=== PATIENT | female | born 1955 | race Caucasian/White ===

== ENCOUNTER 2016-07-28 09:51 | Inpatient (IN) | payer OTHER ==
[~2016-07-28] VITALS: Ht 167.6 cm; Wt 98.4 kg
[~2016-07-28 09:51] MED LIST: ALBU1AER9 INH; BENZ100C84 PO; CLON0.5T3 PO; ENOX0.8I8 SQ; GLC/500 PO; HYDR-5688 PO; HYDR25TA4 PO; MULT-506 PO; OXYC-57 PO; PRAZ2CAP PO; PRLSR20 PO; TIZA4CAP PO; TRAZ1TAB5 PO; VENL150C56 PO; VITBC PO
[2016-07-28] MEDS ORDERED: SODIUM CHLORIDE 0.9% 1000ML 1,000 ML IV STA (10:06)
[2016-07-28] MEDS ORDERED: ALBUT/IPRATROP 3MG/0.5MG NEB 3 ML VIAL INH STA (10:06)
[2016-07-28] MEDS ORDERED: TYLOTC500 PO (10:16)
[2016-07-28] MEDS ORDERED: TRAZ100T29 PO (10:16)
[2016-07-28] MEDS ORDERED: VENL150C56 PO (10:16)
--- NOTE | 2016-07-28 10:18 | EMERGENCY ROOM VISIT NOTE ---
History Report prepared by [place]: Jesus Grossman Under the Supervision of: Dr. Danny Bermudez D.O. First contact with patient: 09:57 Chief Complaint: SHORTNESS OF BREATH Stated Complaint: SOB History of Present Illness The patient is a 61 year old female who presents to the Emergency Room with complaints of worsening shortness of breath for the past two weeks. The patient states that she has been feeling sick for a while, though the last 24 hours she states that it has gotten increasingly harder to breath. The patient denies any chest pain. She states that her throat hurts, she has the chills, a fever, and a cough that produces white sputum. She states the breathing treatment en route to the ED did not help her. The patient states that she has been around some sick family members recently. She additionally states that she is currently on medication for depression and PTSD. The patient states that she has a history of a left knee replacement, back fusion, hysterectomy, and left thumb surgery. Source of History: patient Onset: two weeks ago Position: other (global) Quality: other (shortness of breath) Timing: worsening Associated Symptoms: + chills, + cough, + fevers, + sorethroat, No chest pain Review of Systems See HPI for pertinent positives & negatives. A total of 10 systems reviewed and were otherwise negative. Past Medical & Surgical Medical Problems: (1) Asthmatic bronchitis Surgical Problems: (1) H/O total knee replacement Family History Diabetes mellitus Social History Smoking Status: Former Smoker Alcohol Use: occasionally Drug Use: none Occupation Status: disabled Current/Historical Medications Scheduled Multivitamin (Multivitamin), 1 TABLET PO DAILY Prazosin Hcl (Minipress), 2 MG PO HS Trazodone Hcl (Trazodone), 200 MG PO HS Venlafaxine Hcl (Effexor Extended Rel), 150 MG PO DAILY Vitamin B Complex (Vitamin B Complex), 1 TABLET PO DAILY [cardio b], 1 TAB PO DAILY [omega brite], 3 CAP PO DAILY Scheduled PRN Acetaminophen (Tylenol), 1,000 MG PO DAILY PRN for Pain Clonazepam (Klonopin), 0.5 MG PO TID PRN for Anxiety Tizanidine (Zanaflex), 4 MG PO TID PRN Allergies Coded Allergies: Sulfa Drugs (Verified Allergy, Unknown, 07/28/16) Physical Exam Vital Signs Date Time Temp Pulse Resp B/P Pulse Ox O2 Delivery O2 Flow Rate FiO2 07/28/16 16:05 92 Nasal Cannula 2.0 07/28/16 15:56 80 16 100/49 92 Nasal Cannula 2.0 07/28/16 14:53 93 07/28/16 14:02 105 22 125/80 94 Nasal Cannula 2.0 07/28/16 13:23 100 24 146/78 93 Nasal Cannula 07/28/16 12:02 105 26 134/82 95 Nasal Cannula 2.0 07/28/16 10:34 103 07/28/16 10:31 93 24 113/83 97 Nasal Cannula 2.0 07/28/16 10:06 93 Nasal Cannula 2.0 07/28/16 09:59 89 Room Air 07/28/16 09:59 89 Room Air 07/28/16 09:59 36.7 100 24 151/81 89 Room Air Physical Exam GENERAL: Patient is awake, alert, somewhat anxious appearing. EYES: Conjunctival injection noted bilaterally. Periorbital edema noted bilaterally. EARS, NOSE, MOUTH AND THROAT: The nose is without any evidence of any deformity. Mucous membranes are moist tongue is midline NECK: The neck is nontender and supple. RESPIRATORY:Lung sounds diminished throughout. Scattered expiratory wheezing in both upper lung peter. CARDIOVASCULAR: Regular rate and rhythm noted there no murmurs rubs or gallops normal S1 normal S2 GASTROINTESTINAL: The abdomen is soft. Bowel sounds are present in all quadrants. Abdomen is nontender MUSCULOSKELETAL/EXTREMITIES: There is no evidence of gross deformity full range of motion is noted in the hips and shoulders SKIN: There is no obvious evidence of any rash. There are no petechiae, pallor or cyanosis noted. NEUROLOGIC: Patient is awake alert and oriented x3 Medical Decision & Procedures ER Provider Diagnostic Interpretation: Radiology results as stated below per my review and radiologist interpretation: CHEST ONE VIEW PORTABLE CLINICAL HISTORY: EVALUATE RESPIRATORY DISTRESS. DYSPNEA dyspnea COMPARISON STUDY: 12/22/2012 FINDINGS: The bones soft tissues and hemidiaphragms are normal. The cardiomediastinal silhouette is normal. The lungs are clear. The pulmonary vasculature is normal. IMPRESSION: Negative chest. Electronically signed by: Brandin Serrano M.D. 07/28/2016 10:43 AM Dictated Date/Time: 07/28/2016 10:43 AM Laboratory Results 07/28/16 10:20 Red Blood Count 4.32, Mean Corpuscular Volume 90.7, Mean Corpuscular Hemoglobin 32.4, Mean Corpuscular Hemoglobin Concent 35.7, Mean Platelet Volume 10.1, Neutrophils (%) (Auto) 40.6, Lymphocytes (%) (Auto) 48.1, Monocytes (%) (Auto) 8.8, Eosinophils (%) (Auto) 1.8, Basophils (%) (Auto) 0.4, Neutrophils # (Auto) 3.10, Lymphocytes # (Auto) 3.67, Monocytes # (Auto) 0.67, Eosinophils # (Auto) 0.14, Basophils # (Auto) 0.03 07/28/16 10:20 Test 07/28/16 10:20 07/28/16 10:27 07/28/16 13:16 White Blood Count 7.63 K/uL (4.8-10.8) Red Blood Count 4.32 M/uL (4.2-5.4) Hemoglobin 14.0 g/dL (12.0-16.0) Hematocrit 39.2 % (37-47) Mean Corpuscular Volume 90.7 fL (80-100) Mean Corpuscular Hemoglobin 32.4 pg (25-34) Mean Corpuscular Hemoglobin Concent 35.7 g/dl (32-36) Platelet Count 102 K/uL (130-400) Mean Platelet Volume 10.1 fL (7.4-10.4) Neutrophils (%) (Auto) 40.6 % Lymphocytes (%) (Auto) 48.1 % Monocytes (%) (Auto) 8.8 % Eosinophils (%) (Auto) 1.8 % Basophils (%) (Auto) 0.4 % Neutrophils # (Auto) 3.10 K/uL (1.4-6.5) Lymphocytes # (Auto) 3.67 K/uL (1.2-3.4) Monocytes # (Auto) 0.67 K/uL (0.11-0.59) Eosinophils # (Auto) 0.14 K/uL (0-0.5) Basophils # (Auto) 0.03 K/uL (0-0.2) RDW Standard Deviation 41.5 fL (36.4-46.3) RDW Coefficient of Variation 12.5 % (11.5-14.5) Immature Granulocyte % (Auto) 0.3 % Immature Granulocyte # (Auto) 0.02 K/uL (0.00-0.02) Prothrombin Time 11.0 SECONDS (9.0-12.0) Prothromb Time International Ratio 1.0 (0.9-1.1) Activated Partial Thromboplast Time 28.1 SECONDS (21.0-31.0) Partial Thromboplastin Ratio 1.1 D-Dimer 410 ug/L FEU (0-500) Anion Gap 11.0 mmol/L (3-11) Est Creatinine Clear Calc Drug Dose 74.6 ml/min Estimated GFR () 75.0 Estimated GFR (Non- 64.7 BUN/Creatinine Ratio 5.5 (10-20) Calcium Level 8.2 mg/dl (8.5-10.1) Total Bilirubin 0.2 mg/dl (0.2-1) Aspartate Amino Transf (AST/SGOT) 24 U/L (15-37) Alanine Aminotransferase (ALT/SGPT) 27 U/L (12-78) Alkaline Phosphatase 91 U/L (45-117) Troponin I < 0.015 ng/ml (0-0.045) Total Protein 7.6 gm/dl (6.4-8.2) Albumin 3.4 gm/dl (3.4-5.0) Globulin 4.2 gm/dl (2.5-4.0) Albumin/Globulin Ratio 0.8 (0.9-2) Influenza Type A (RT-PCR) Neg for Influ A (NEG) Influenza Type A Antigen Neg for Influ A (NEG) Influenza Type B Antigen Neg for Influ B (NEG) Influenza Type B (RT-PCR) Neg for Influ B (NEG) Urine Color YELLOW Urine Appearance CLEAR (CLEAR) Urine pH 6.0 (4.5-7.5) Urine Specific [place] 1.000 (1.000-1.030) Urine Protein NEG (NEG) Urine Glucose (UA) 2+ (NEG) Urine Ketones NEG (NEG) Urine Occult Blood NEG (NEG) Urine Nitrite NEG (NEG) Urine Bilirubin NEG (NEG) Urine Urobilinogen NEG (NEG) Urine Leukocyte Esterase NEG (NEG) Laboratory results per my review. Medications Administered Medications (Trade) Dose Ordered Sig/Sam Route Start Time Stop Time Status Last Admin Dose Admin Sodium Chloride (Nss 1000ml) 1,000 ml @ 999 mls/hr Q1H1M STAT IV 07/28/16 10:06 07/28/16 11:06 DC 07/28/16 10:25 999 MLS/HR Albuterol/ Ipratropium (Duoneb) 3 ml NOW STAT INH 07/28/16 10:06 07/28/16 10:10 DC 07/28/16 10:26 3 ML ECG Indication: SOB/dyspnea Rate (beats per minute): 95 Rhythm: normal sinus Findings: no ectopy, other (No acute ST abnormality) Comparison ECG Date: 12/22/12 Change: no significant change ED Course 0957: The patient was evaluated in room B6. A complete history and physical examination were performed. 1006: DuoNeb 3ml INH, NSS 1,000 ml @ 999 mls/hr IV 1352: I reevaluated the patient, and she was resting 1402: I discussed the patient's case with Dr. Maynard. He is going to evaluate the patient for further treatment. Medical Decision Differential diagnosis: Etiologies such as infections, reactive airway disease, pneumonia, pneumothorax , COPD, CHF, cardiac ischemia, pulmonary embolism, musculoskeletal, gastrointestinal, as well as others were entertained. Nursing notes reviewed. The patient is a 61-year-old female who presented to the emergency department for evaluation of cough. The patient had upper viral symptoms such as sore throat as well as rhinorrhea. She also had puffiness around her eyes. I do feel her overall condition was likely consistent with a viral syndrome however her bronchitis was so severe that she presented with hypoxia and significant bronchospasm. She was treated with IV fluids IV steroids and DuoNeb times in the emergency department. On subsequent reevaluation she was feeling much better but required nasal cannula oxygen to maintain an adequate saturation. For this reason I discussed her case with the on-call [facility] hospitalist. He has agreed to evaluate the patient in the emergency department. I discussed the patient's laboratory and radiographic studies with her. Consults Time Called: 1400 Consulting Physician: Dr. Maynard Returned Call: 1402 I discussed the patient's case with Dr. Maynard. He is going to evaluate the patient for further treatment. Impression Primary Impression: Acute bronchitis Additional Impression: Hypoxia Scribe Attestation The scribe's documentation has been prepared under my direction and personally reviewed by me in its entirety. I confirm that the note above accurately reflects all work, treatment, procedures, and medical decision making performed by me. Departure Information Dispostion Being Evaluated By Hospitalist Referrals Maninder Ramsey M.D.(DEAN) (PCP) Problem Qualifiers Primary Impression: Acute bronchitis Bronchitis organism: unspecified organism Qualified Codes: J20.9 - Acute bronchitis, unspecified
--- NOTE | 2016-07-28 10:44 | DIAGNOSTIC IMAGING REPORT ---
CHEST ONE VIEW PORTABLE CLINICAL HISTORY: EVALUATE RESPIRATORY DISTRESS. DYSPNEA dyspnea COMPARISON STUDY: 12/22/2012 FINDINGS: The bones soft tissues and hemidiaphragms are normal. The cardiomediastinal silhouette is normal. The lungs are clear. The pulmonary vasculature is normal. IMPRESSION: Negative chest. Electronically signed by: Brandin Serrano M.D. 07/28/2016 10:43 AM Dictated Date/Time: 07/28/2016 10:43 AM
[2016-07-28 10:47] LABS: BASO % 0.4 %; BASO ABS # 0.03 K/uL (0-0.2); COMPLETE YES; EOS % 1.8 %; HEMATOCRIT 39.2 % (37-47); IG% 0.3 %; LYMPH % 48.1 %; LYMPH ABS # 3.67 K/uL (1.2-3.4); MEAN CELL VOLUME 90.7 fL (80-100); MEAN CORPUSCULAR HEMOGLOBIN 32.4 pg (25-34); MEAN CORPUSCULAR HGB CONC 35.7 g/dl (32-36); MEAN PLATELET VOLUME 10.1 fL (7.4-10.4); MONO % 8.8 %; NEUT % 40.6 %; PLATELET COUNT 102 K/uL (130-400); RED BLOOD COUNT 4.32 M/uL (4.2-5.4); WHITE BLOOD COUNT 7.63 K/uL (4.8-10.8)
[2016-07-28 11:04] LABS: ALT/SGPT 27 U/L (12-78); AST/SGOT 24 U/L (15-37); BLOOD UREA NITROGEN 5 mg/dl (7-18); BUN/CREATININE RATIO 5.5 (10-20); CALCIUM 8.2 mg/dl (8.5-10.1); CARBON DIOXIDE 28 mmol/L (21-32); CHLORIDE 94 mmol/L (98-107); CREATININE 0.96 mg/dl (0.60-1.20); GLUCOSE 170 mg/dl (70-99); POTASSIUM 3.1 mmol/L (3.5-5.1); SODIUM 133 mmol/L (136-145)
[2016-07-28 11:06] LABS: PARTIAL THROMBOPLASTIN RATIO 1.1
[2016-07-28 11:08] LABS: ALB/GLOB RATIO 0.8 (0.9-2); ALKALINE PHOSPHATASE 91 U/L (45-117)
[2016-07-28 13:31] LABS: URINE APPEARANCE CLEAR (CLEAR); URINE BILIRUBIN NEG (NEG); URINE COLOR YELLOW; URINE NITRITE NEG (NEG); UROBILINOGEN NEG (NEG)
[2016-07-28 13:40] LABS: MANUAL MICROSCOPIC REQUIRED? NO; REVIEW REQ? NO
[2016-07-28 14:09] LABS: INFLUENZA A PCR Neg for Influ A (NEG); INFLUENZA B PCR Neg for Influ B (NEG)
[2016-07-28] MEDS ORDERED: [UNRECOGNIZED DRUG - OTHER] PO (15:26)
[2016-07-28] MEDS ORDERED: CARDIO B PO (15:26)
[2016-07-28] MEDS ORDERED: ACETAMINOPHEN 325 MG TAB PO PRN (15:30)
[2016-07-28] MEDS ORDERED: ONDANSETRON INJ 2 MG/ML 2 ML VIAL IV PRN (15:30)
[2016-07-28 16:05] VITALS: O2SAT 92; Ht 167.6 cm; Wt 98.4 kg
[2016-07-28] MEDS ORDERED: POTASSIUM CHLORIDE 10 MEQ TABCR PO SCH (17:15)
--- NOTE | 2016-07-28 17:45 | History and Physical ---
History & Physical Date & Time of Service: Jul 28, 2016 at 17:12 Chief Complaint: Cough, Shortness of Breath Primary Care Physician: Mnainder Ramsey M.D.(DEAN) History of Present Illness 61 year old female who presents to the ER with cough and shortness of breath. Patient reports she started getting sick 6 days ago. She reports a persistent harsh cough that is occasionally productive for a white sputum. She reports mild shortness of breath on exertion. No shortness of breath at rest. She has had chills but did not take her temperature. She reports her throat is very sore from the persistent coughing. Her ribs and abdomen are sore as well. No chest pain. She denies lightheadedness, dizziness, diaphoresis, or syncope. She denies nausea, vomiting, or diarrhea. No urinary symptoms. In the ER, patient was saturating 89% on room air, this improved with oxygen 2L via NC. CXR is clear. She is afebrile with normal WBC. She has mild tachycardia that is improving with IVF. BP is stable. Rapid and PCR influenza are negative. She was also given a neb and is feeling a little better. Past Medical/Surgical History Medical Problems: (1) Anxiety Status: Chronic (2) CKD (chronic kidney disease), stage III Status: Chronic (3) Depression Status: Chronic (4) Diet-controlled diabetes mellitus Status: Chronic (5) Dyslipidemia Status: Chronic (6) PTSD (post-traumatic stress disorder) Status: Chronic Surgical Problems: (1) H/O arthroscopy of shoulder Status: Chronic (2) H/O right knee surgery Status: Chronic (3) H/O thumb surgery Status: Chronic (4) History of partial hysterectomy Status: Chronic Social History Smoking Status: Former Smoker Alcohol Use: 6 pack beer/day Drug Use: none Immunizations History of Influenza Vaccine: Yes Influenza Vaccine Date: Feb 08, 2016 History of Tetanus Vaccine?: Yes Tetanus Immunization Date: May 16, 2008 History of Pneumococcal: Yes Pneumococcal Date: Mar 12, 2013 Multi-Drug Resistant Organisms History of MDRO: No Allergies Coded Allergies: Sulfa Drugs (Verified Allergy, Unknown, 07/28/16) Home Medications Scheduled Multivitamin (Multivitamin), 1 TABLET PO DAILY Prazosin Hcl (Minipress), 2 MG PO HS Trazodone Hcl (Trazodone), 200 MG PO HS Venlafaxine Hcl (Effexor Extended Rel), 150 MG PO DAILY Vitamin B Complex (Vitamin B Complex), 1 TABLET PO DAILY [cardio b], 1 TAB PO DAILY [omega brite], 3 CAP PO DAILY Scheduled PRN Acetaminophen (Tylenol), 1,000 MG PO DAILY PRN for Pain Clonazepam (Klonopin), 0.5 MG PO TID PRN for Anxiety Tizanidine (Zanaflex), 4 MG PO TID PRN Review of Systems 10 point review of systems was completed with the pertinent positives and negatives noted per the HPI Physical Exam Vital Signs Date Time Temp Pulse Resp B/P Pulse Ox O2 Delivery O2 Flow Rate FiO2 07/28/16 16:05 92 Nasal Cannula 2.0 07/28/16 15:56 80 16 100/49 92 Nasal Cannula 2.0 07/28/16 14:53 93 07/28/16 14:02 105 22 125/80 94 Nasal Cannula 2.0 07/28/16 13:23 100 24 146/78 93 Nasal Cannula 07/28/16 12:02 105 26 134/82 95 Nasal Cannula 2.0 07/28/16 10:34 103 07/28/16 10:31 93 24 113/83 97 Nasal Cannula 2.0 07/28/16 10:06 93 Nasal Cannula 2.0 07/28/16 09:59 89 Room Air 07/28/16 09:59 89 Room Air 07/28/16 09:59 36.7 100 24 151/81 89 Room Air General Appearance: no apparent distress Head: normocephalic, + pertinent finding (no sinus tenderness) Eyes: normal inspection ENT: hearing grossly normal, + pharyngeal erythema (mild) Neck: supple, no JVD Respiratory/Chest: no respiratory distress, + decreased breath sounds, + wheezing (faint, scattered, expiratory) Cardiovascular: no edema, + tachycardia (mild, HR in the 90s-low 100s, regular rhythm) Abdomen/GI: normal bowel sounds, non tender, soft Extremities/Musculoskelatal: normal inspection, no calf tenderness Neurologic/Psych: no motor/sensory deficits, alert, normal mood/affect, oriented x 3 Skin: normal color, warm/dry Diagnostics Laboratory Results Results Past 24 Hours Test 07/28/16 10:20 07/28/16 10:27 07/28/16 13:16 07/28/16 17:07 Range/Units White Blood Count 7.63 4.8-10.8 K/uL Red Blood Count 4.32 4.2-5.4 M/uL Hemoglobin 14.0 12.0-16.0 g/dL Hematocrit 39.2 37-47 % Mean Corpuscular Volume 90.7 80-100 fL Mean Corpuscular Hemoglobin 32.4 25-34 pg Mean Corpuscular Hemoglobin Concent 35.7 32-36 g/dl Platelet Count 102 130-400 K/uL Mean Platelet Volume 10.1 7.4-10.4 fL Neutrophils (%) (Auto) 40.6 % Lymphocytes (%) (Auto) 48.1 % Monocytes (%) (Auto) 8.8 % Eosinophils (%) (Auto) 1.8 % Basophils (%) (Auto) 0.4 % Neutrophils # (Auto) 3.10 1.4-6.5 K/uL Lymphocytes # (Auto) 3.67 1.2-3.4 K/uL Monocytes # (Auto) 0.67 0.11-0.59 K/uL Eosinophils # (Auto) 0.14 0-0.5 K/uL Basophils # (Auto) 0.03 0-0.2 K/uL RDW Standard Deviation 41.5 36.4-46.3 fL RDW Coefficient of Variation 12.5 11.5-14.5 % Immature Granulocyte % (Auto) 0.3 % Immature Granulocyte # (Auto) 0.02 0.00-0.02 K/uL Prothrombin Time 11.0 9.0-12.0 SECONDS Prothromb Time International Ratio 1.0 0.9-1.1 Activated Partial Thromboplast Time 28.1 21.0-31.0 SECONDS Partial Thromboplastin Ratio 1.1 D-Dimer 410 0-500 ug/L FEU Sodium Level 133 136-145 mmol/L Potassium Level 3.1 3.5-5.1 mmol/L Chloride Level 94 98-107 mmol/L Carbon Dioxide Level 28 21-32 mmol/L Anion Gap 11.0 3-11 mmol/L Blood Urea Nitrogen 5 7-18 mg/dl Creatinine 0.96 0.60-1.20 mg/dl Est Creatinine Clear Calc Drug Dose 74.6 ml/min Estimated GFR () 75.0 Estimated GFR (Non- 64.7 BUN/Creatinine Ratio 5.5 10-20 Random Glucose 170 70-99 mg/dl Calcium Level 8.2 8.5-10.1 mg/dl Total Bilirubin 0.2 0.2-1 mg/dl Aspartate Amino Transf (AST/SGOT) 24 15-37 U/L Alanine Aminotransferase (ALT/SGPT) 27 12-78 U/L Alkaline Phosphatase 91 45-117 U/L Troponin I < 0.015 0-0.045 ng/ml Total Protein 7.6 6.4-8.2 gm/dl Albumin 3.4 3.4-5.0 gm/dl Globulin 4.2 2.5-4.0 gm/dl Albumin/Globulin Ratio 0.8 0.9-2 Influenza Type A (RT-PCR) Neg for Influ A NEG Influenza Type A Antigen Neg for Influ A NEG Influenza Type B Antigen Neg for Influ B NEG Influenza Type B (RT-PCR) Neg for Influ B NEG Urine Color YELLOW Urine Appearance CLEAR CLEAR Urine pH 6.0 4.5-7.5 Urine Specific [place] 1.000 1.000-1.030 Urine Protein NEG NEG Urine Glucose (UA) 2+ NEG Urine Ketones NEG NEG Urine Occult Blood NEG NEG Urine Nitrite NEG NEG Urine Bilirubin NEG NEG Urine Urobilinogen NEG NEG Urine Leukocyte Esterase NEG NEG Diagnostic Radiology CXR IMPRESSION: Negative chest. Impression Assessment and Plan HYPOXIA, VIRAL URI - admit to med/surg - presenting with 6 days of harsh cough and mild shortness of breath on exertion ; on arrival to ER, 89% on room air, currently saturating well on 2L - no hx of asthma/COPD - CXR clear, flu PCR negative, negative D. Dimer - afebrile, normal WBC - around the clock nebs, short course PO steroids; hold on antibiotics for now - titrate oxygen as able DM, DIET CONTROLLED - hgb a1c 5.4 10/2015 - check BSGs while on steroids ETOH ABUSE - patient reports drinking 6 pack beer/day; reports she had quit in the past however started again due to numerous deaths in her family - no problems with withdrawal in the past - monitor for signs DEPRESSION, ANXIETY, PTSD - continue home meds CKD STAGE III - baseline creat runs in the low 1's - creat noted to be 0.9 today - continue to monitor, avoid nephrotoxic agents when able DVT PROPHYLAXIS - SQ Lovenox DISPO - In my clinical judgment this beneficiary meets acute admission criteria, established by [facility], that includes being hospitalized through two midnights. Advanced Directives Existing Living Will: No Existing Power of Carburizer: No VTE Prophylaxis VTE Risk Assessment Done? Y/N: Yes Risk Level: Moderate Note ATTENDING ADDENDUM Record reviewed. Patient interviewed and examined. Care coordinated with JESIKA Hankins. Please refer to her documentation for patient's history. Briefly, 61 YO female with cough, pharyngitis, SOB. No history of pulmonary disease, but ex-smoker. EXAM: General- no acute distress VS- as noted HEENT- no pharyngeal erythema or exudate Neck- supple Lungs- diffuse moderate wheezing Heart- RRR Abdomen- + BS, soft, nontender Extremities- no pretibial edema or calf tenderness Neuro- alert DATA: WBC 7630. K 3.1. Random glucose 170. [employer] swab for influenza A/B negative by both antigen assay and PCR. Other lab studies as noted. CXR- no infiltrates. O2 sat 89% RA. ASSESSMENT AND PLAN: Asthmatic bronchitis with associated hypoxia. No infiltrates on chest x-ray. Influenza A/B negative per PCR. Probably non-influenza viral infection. No apparent indication for antibiotics at this time. Management will consist of nebs, short course of steroids, O2. Serum K = 3.1. Received KCl 40 mEq. Follow. Diet-controlled DM. Follow blood sugars on steroids. May need insulin coverage. Please refer to LILIBETH Eldridge's documentation for discussion of other issues. Nolberto Maynard MD .
[2016-07-28 18:00] VITALS: O2SAT 93
[2016-07-28] MEDS: ALBUT/IPRATROP 3MG/0.5MG NEB 3 ML VIAL INH SCH ×2 (19:36→21:40)
[2016-07-28] MEDS: SODIUM CHLORIDE 0.9% 1000ML 1,000 ML IV SCH (19:55)
[2016-07-28] MEDS ORDERED: NURSING DECISION MEDICATION ORDER SCH (20:00)
[2016-07-28] MEDS ORDERED: COUGH DROP (SUGAR FREE) LOZ 24 LOZ/1 BOX PO PRN (20:15)
[2016-07-28 21:42] VITALS: PULSE 84; O2SAT 92
[2016-07-28] MEDS: PRAZOSIN HCL 1 MG CAP PO SCH (22:01)
[2016-07-28] MEDS: TRAZODONE HCL 100 MG TAB PO SCH (22:01)
[2016-07-28] MEDS: ENOXAPARIN 40 MG/0.4 ML SYR SC SCH (22:04)
[2016-07-28 23:43] VITALS: BP 131/75; PULSE 79; TEMP 36.6; O2SAT 91
[2016-07-29] MEDS: SODIUM CHLORIDE 0.9% 1000ML 1,000 ML IV SCH (03:46)
[2016-07-29 05:59] LABS: ESTIMATED AVERAGE GLUCOSE 114 mg/dl; HA1C FLAG Normal (Normal)
[2016-07-29 07:05] VITALS: BP 175/84; PULSE 99; TEMP 36.6; O2SAT 91
[2016-07-29 07:10] VITALS: PULSE 82; O2SAT 98
[2016-07-29] MEDS: ALBUT/IPRATROP 3MG/0.5MG NEB 3 ML VIAL INH SCH ×4 (07:10→19:35)
[2016-07-29 07:14] LABS: MEAN CORPUSCULAR HEMOGLOBIN 31.7 pg (25-34); MEAN CORPUSCULAR HGB CONC 34.5 g/dl (32-36); MEAN PLATELET VOLUME 10.5 fL (7.4-10.4); PLATELET COUNT 110 K/uL (130-400); RED BLOOD COUNT 4.13 M/uL (4.2-5.4); WHITE BLOOD COUNT 8.81 K/uL (4.8-10.8)
[2016-07-29 07:48] LABS: CALCIUM 8.8 mg/dl (8.5-10.1); CREATININE 0.89 mg/dl (0.60-1.20); POTASSIUM 4.5 mmol/L (3.5-5.1)
[2016-07-29] MEDS: VENLAFAXINE HCL XR 150 MG CAPXR PO SCH (07:58)
[2016-07-29] MEDS: MULTIVITAMIN TAB PO SCH (07:58)
[2016-07-29] MEDS: VITAMIN B COMPLEX TAB PO SCH (07:59)
[2016-07-29] MEDS: CLONAZEPAM 0.5 MG TAB PO PRN ×2 (08:00→17:26)
[2016-07-29 11:27] VITALS: PULSE 88; O2SAT 98
[2016-07-29] MEDS ORDERED: GLUCOSE 10 TABS/TUBE PO PRN (12:45)
[2016-07-29] MEDS ORDERED: GLUCOSE 40% GEL 15 GM TUBE PO PRN (12:45)
[2016-07-29] MEDS ORDERED: GLUCAGON FOR INJ 1 MG VIAL SQ PRN (12:45)
[2016-07-29] MEDS ORDERED: DEXTROSE 50% 50 ML SYR IV PRN (12:45)
--- NOTE | 2016-07-29 13:14 | Progress Note ---
Internal Med Progress Note Date of Service: Jul 29, 2016. Provider Documentation: SUBJECTIVE: Patient does c/o cough and congestion, unable to bring up sputum. SOB has improved. Chest tightness +, No chest pain, fever, chills. Overall marginally improvement On 2 L- 98% OBJECTIVE: Vital Signs-as noted below Exam: General- AAOX3, obese, mild distress secondary to cough Neck-Supple, NO JVD Lungs-AEBE decreased, chest tightness +, Wheezing + Heart-S1, S2 normal, no murmurs Extremities-No edema Lab data as noted below. ASSESSMENT & PLAN: HYPOXIA SECONDARY TO ACUTE VIRAL BRONCHITIS Presented with 6 days of harsh cough and mild shortness of breath on exertion; on arrival to ER, 89% on room air - No hx of asthma/COPD, but hx of smoking X 15 years (quit 16 years ago) - CXR clear, flu PCR negative, negative D. Dimer - afebrile, normal WBC - Discontinue IVF. Continue with nebs, short course PO steroids. No indication for antibiotics at this point. Added tessalon pearls TID and robitussin PRN for cough - titrate oxygen as able DM, DIET CONTROLLED - hgb a1c 5.4 10/2015 - check BSGs while on steroids - ISS added ETOH ABUSE - Patient reports drinking 6 pack beer/day; reports she had quit in the past however started again due to numerous deaths in her family - no problems with withdrawal in the past - monitor for signs DEPRESSION, ANXIETY, PTSD - continue home meds CKD STAGE III - baseline creat runs in the low 1's - Near baseline - continue to monitor, avoid nephrotoxic agents when able DVT PROPHYLAXIS - SQ Lovenox DISPO - Medical mx in progress Vital Signs: Date Time Temp Pulse Resp B/P Pulse Ox O2 Delivery O2 Flow Rate FiO2 07/29/16 11:27 88 18 98 Nasal Cannula 2.0 07/29/16 08:00 Nasal Cannula 2.0 07/29/16 07:10 82 18 98 Nasal Cannula 2.0 07/29/16 07:05 36.6 99 17 175/84 91 Room Air 07/29/16 00:20 Nasal Cannula 2.0 07/28/16 23:43 36.6 79 18 131/75 91 Nasal Cannula 2.0 07/28/16 21:42 84 14 92 Nasal Cannula 2.0 07/28/16 18:00 78 18 152/84 92 2.0 07/28/16 18:00 93 Nasal Cannula 2.0 07/28/16 17:00 77 18 109/63 92 Room Air 07/28/16 16:05 92 Nasal Cannula 2.0 07/28/16 15:56 80 16 100/49 92 Nasal Cannula 2.0 07/28/16 14:53 93 07/28/16 14:02 105 22 125/80 94 Nasal Cannula 2.0 07/28/16 13:23 100 24 146/78 93 Nasal Cannula Lab Results: Results Past 24 Hours Test 07/28/16 13:16 07/28/16 21:08 07/28/16 21:58 07/29/16 06:41 Range/Units Urine Color YELLOW Urine Appearance CLEAR CLEAR Urine pH 6.0 4.5-7.5 Urine Specific [place] 1.000 1.000-1.030 Urine Protein NEG NEG Urine Glucose (UA) 2+ NEG Urine Ketones NEG NEG Urine Occult Blood NEG NEG Urine Nitrite NEG NEG Urine Bilirubin NEG NEG Urine Urobilinogen NEG NEG Urine Leukocyte Esterase NEG NEG Bedside Glucose 251 236 70-90 mg/dl White Blood Count 8.81 4.8-10.8 K/uL Red Blood Count 4.13 4.2-5.4 M/uL Hemoglobin 13.1 12.0-16.0 g/dL Hematocrit 38.0 37-47 % Mean Corpuscular Volume 92.0 80-100 fL Mean Corpuscular Hemoglobin 31.7 25-34 pg Mean Corpuscular Hemoglobin Concent 34.5 32-36 g/dl RDW Standard Deviation 42.6 36.4-46.3 fL RDW Coefficient of Variation 12.6 11.5-14.5 % Platelet Count 110 130-400 K/uL Mean Platelet Volume 10.5 7.4-10.4 fL Sodium Level 141 136-145 mmol/L Potassium Level 4.5 3.5-5.1 mmol/L Chloride Level 106 98-107 mmol/L Carbon Dioxide Level 27 21-32 mmol/L Anion Gap 8.0 3-11 mmol/L Blood Urea Nitrogen 12 7-18 mg/dl Creatinine 0.89 0.60-1.20 mg/dl Est Creatinine Clear Calc Drug Dose 80.5 ml/min Estimated GFR () 82.2 Estimated GFR (Non- 70.9 BUN/Creatinine Ratio 13.0 10-20 Random Glucose 164 70-99 mg/dl Calcium Level 8.8 8.5-10.1 mg/dl Test 07/29/16 07:42 Range/Units Bedside Glucose 158 70-90 mg/dl
[2016-07-29] MEDS: BENZONATATE 100MG CAP PO SCH ×2 (14:09→21:22)
[2016-07-29 15:33] VITALS: BP 129/79; PULSE 78; TEMP 36.5; O2SAT 92
[2016-07-29 16:02] VITALS: PULSE 68; O2SAT 97
[2016-07-29] MEDS: INSULIN ASPART 100 UNITS/ML 3 ML PEN SC SCH ×2 (17:27→21:30)
[2016-07-29] MEDS: ENOXAPARIN 40 MG/0.4 ML SYR SC SCH (21:22)
[2016-07-29] MEDS: TRAZODONE HCL 100 MG TAB PO SCH (21:24)
[2016-07-29] MEDS: PRAZOSIN HCL 1 MG CAP PO SCH (21:24)
[2016-07-30] VITALS (7 sets, daily range): BP systolic 114–165; BP diastolic 74–92; PULSE 71–78; TEMP 36.6–36.7; O2SAT 92–95
[2016-07-30] MEDS: ALBUT/IPRATROP 3MG/0.5MG NEB 3 ML VIAL INH SCH ×5 (07:06→19:59)
[2016-07-30] MEDS: BENZONATATE 100MG CAP PO SCH ×3 (08:16→21:18)
[2016-07-30] MEDS: CLONAZEPAM 0.5 MG TAB PO PRN ×2 (08:19→18:18)
[2016-07-30] MEDS: VITAMIN B COMPLEX TAB PO SCH (08:23)
[2016-07-30] MEDS: MULTIVITAMIN TAB PO SCH (08:23)
[2016-07-30] MEDS: VENLAFAXINE HCL XR 150 MG CAPXR PO SCH (08:23)
[2016-07-30 08:34] LABS: BUN/CREATININE RATIO 18.1 (10-20); CALCIUM 9.4 mg/dl (8.5-10.1); POTASSIUM 3.7 mmol/L (3.5-5.1)
[2016-07-30] MEDS: INSULIN ASPART 100 UNITS/ML 3 ML PEN SC SCH ×4 (08:58→21:00)
--- NOTE | 2016-07-30 09:34 | Progress Note ---
Internal Med Progress Note Date of Service: Jul 30, 2016. Provider Documentation: SUBJECTIVE: Patient is marginally better today. Persistent cough, able to bring up more sputum. SOB has improved. Chest tightness + improved, No chest pain, fever, chills. C/o chest/abdominal aches due to cough Overall marginal improvement Off oxygen- 95% on RA OBJECTIVE: Vital Signs-as noted below Exam: General- AAOX3, obese, mild distress secondary to cough Neck-Supple, NO JVD Lungs-AEBE decreased, chest tightness + improved, No wheezing Heart-S1, S2 normal, no murmurs Extremities-No edema Lab data as noted below. ASSESSMENT & PLAN: HYPOXIA SECONDARY TO ACUTE VIRAL BRONCHITIS : Improved, hypoxia resolved Presented with 6 days of harsh cough and mild shortness of breath on exertion; on arrival to ER, 89% on room air - No hx of asthma/COPD, but hx of smoking X 15 years (quit 16 years ago) - CXR clear, flu PCR negative, negative D. Dimer - Afebrile, normal WBC . Clinically marginal improvement, persistent cough, off oxygen - S/P IVF. Continue with nebs, Short course PO steroids- taper. No indication for antibiotics at this point. Added tessalon pearls TID and robitussin PRN for cough yesterday. DM, DIET CONTROLLED - hgb a1c 5.4 10/2015 - check BSGs while on steroids - ISS added ETOH ABUSE - Patient reports drinking 6 pack beer/day; reports she had quit in the past however started again due to numerous deaths in her family - no problems with withdrawal in the past - monitor for signs DEPRESSION, ANXIETY, PTSD - continue home meds CKD STAGE III - baseline creat runs in the low 1's - Near baseline - continue to monitor, avoid nephrotoxic agents when able DVT PROPHYLAXIS - SQ Lovenox DISPO - Medical mx in progress- probable discharge in AM. - Encouraged to ambulate today Vital Signs: Date Time Temp Pulse Resp B/P Pulse Ox O2 Delivery O2 Flow Rate FiO2 07/30/16 07:08 36.7 75 18 165/91 95 Room Air 07/30/16 00:15 Room Air 07/30/16 00:10 36.6 75 18 124/77 95 Room Air 07/29/16 16:02 68 18 97 Nasal Cannula 2.0 07/29/16 15:33 36.5 78 18 129/79 92 Room Air 07/29/16 15:30 Nasal Cannula 2.0 07/29/16 11:27 88 18 98 Nasal Cannula 2.0 Lab Results: Results Past 24 Hours Test 07/29/16 16:26 07/29/16 19:55 07/30/16 07:13 07/30/16 07:29 Range/Units Bedside Glucose 226 174 114 70-90 mg/dl Sodium Level 137 136-145 mmol/L Potassium Level 3.7 3.5-5.1 mmol/L Chloride Level 101 98-107 mmol/L Carbon Dioxide Level 31 21-32 mmol/L Anion Gap 5.0 3-11 mmol/L Blood Urea Nitrogen 18 7-18 mg/dl Creatinine 1.00 0.60-1.20 mg/dl Est Creatinine Clear Calc Drug Dose 71.6 ml/min Estimated GFR () 71.4 Estimated GFR (Non- 61.6 BUN/Creatinine Ratio 18.1 10-20 Random Glucose 98 70-99 mg/dl Calcium Level 9.4 8.5-10.1 mg/dl
[2016-07-30] MEDS: GUAIFENESIN SUGAR FREE 100 MG/5 ML UDC PO PRN ×2 (12:37→21:20)
[2016-07-30] MEDS: PRAZOSIN HCL 1 MG CAP PO SCH (21:19)
[2016-07-30] MEDS: TRAZODONE HCL 100 MG TAB PO SCH (21:20)
[2016-07-30] MEDS: ENOXAPARIN 40 MG/0.4 ML SYR SC SCH (21:20)
[2016-07-31 07:19] VITALS: PULSE 80; O2SAT 97
[2016-07-31] MEDS: ALBUT/IPRATROP 3MG/0.5MG NEB 3 ML VIAL INH SCH ×2 (07:19→11:12)
[2016-07-31 08:12] VITALS: BP 158/82; PULSE 91; TEMP 36.6; O2SAT 97
[2016-07-31] MEDS: MULTIVITAMIN TAB PO SCH (08:16)
[2016-07-31] MEDS: VENLAFAXINE HCL XR 150 MG CAPXR PO SCH (08:16)
[2016-07-31] MEDS: VITAMIN B COMPLEX TAB PO SCH (08:16)
[2016-07-31] MEDS: BENZONATATE 100MG CAP PO SCH (08:16)
[2016-07-31] MEDS: CLONAZEPAM 0.5 MG TAB PO PRN (08:16)
[2016-07-31] MEDS: INSULIN ASPART 100 UNITS/ML 3 ML PEN SC SCH ×2 (08:21→12:17)
[2016-07-31 09:15] VITALS: O2SAT 97
--- NOTE | 2016-07-31 09:36 | Progress Note ---
Internal Med Progress Note Date of Service: Jul 31, 2016. Provider Documentation: SUBJECTIVE: Patient is doing better today. Persistent cough, able to bring up more sputum. SOB has improved. Chest tightness resolved, No chest pain, fever, chills. C/o chest/abdominal aches due to cough Off oxygen- 95% on RA OBJECTIVE: Vital Signs-as noted below Exam: General - AAOX3, obese Neck-Supple, NO JVD; Lymphadenopathy tender- pre auricular + Lungs-AEBE decreased, Clear , No wheezing Heart-S1, S2 normal, no murmurs Extremities-No edema Lab data as noted below. ASSESSMENT & PLAN: HYPOXIA SECONDARY TO ACUTE BRONCHITIS : Improved, hypoxia resolved Presented with 6 days of harsh cough and mild shortness of breath on exertion; on arrival to ER, 89% on room air - No hx of asthma/COPD, but hx of smoking X 15 years (quit 16 years ago) - CXR clear, flu PCR negative, negative D. Dimer - Afebrile, normal WBC . Clinically improved, persistent cough, off oxygen, tender lymphadenopathy (pre auricular) - S/P IVF. Continue with nebs, Short course PO steroids- taper. Added tessalon pearls TID and robitussin PRN for cough. PLAN ON DISCHARGE: Continue with short prednisone taper. Will add z pack today as tender pre auricular lymphadenopathy + likely reactive secondary to above. Continue with anti tussives. Albuterol PRN will be prescribed. DM, DIET CONTROLLED - hgb a1c 5.4 10/2015 - check BSGs while on steroids - ISS added ETOH ABUSE - Patient reports drinking 6 pack beer/day; reports she had quit in the past however started again due to numerous deaths in her family - no problems with withdrawal in the past - monitor for signs DEPRESSION, ANXIETY, PTSD - continue home meds CKD STAGE III - baseline creat runs in the low 1's - Near baseline - continue to monitor, avoid nephrotoxic agents when able DVT PROPHYLAXIS - SQ Lovenox DISPO - Ambulating in [address] - Ok to discharge home today Vital Signs: Date Time Temp Pulse Resp B/P Pulse Ox O2 Delivery O2 Flow Rate FiO2 07/31/16 09:15 97 Room Air 07/31/16 08:12 36.6 91 24 158/82 97 Room Air 07/31/16 07:19 80 18 97 Room Air 07/31/16 00:05 Room Air 07/30/16 23:13 36.6 71 20 114/74 93 Room Air 07/30/16 17:37 78 18 93 Room Air 07/30/16 16:10 92 Room Air 07/30/16 14:47 36.7 75 18 157/92 92 Room Air Lab Results: Results Past 24 Hours Test 07/30/16 11:21 07/30/16 16:40 07/30/16 20:20 Range/Units Bedside Glucose 122 198 169 70-90 mg/dl
[2016-07-31] MEDS ORDERED: RBTUDL5 PO (09:39)
[2016-07-31] MEDS ORDERED: BENZ100C7 PO (09:39)
[2016-07-31] MEDS ORDERED: VNTHFA/IN INH (09:40)
[2016-07-31] MEDS ORDERED: AZITTAB PO (09:40)
[2016-07-31] MEDS ORDERED: PRED10TA PO (09:40)
[2016-07-31] MEDS ORDERED: PRLSR20 PO (09:42)
--- NOTE | 2016-07-31 09:43 | Discharge Instructions ---
Discharge Instructions Admission Reason for Admission: Asthmatic Bronchitis Hypoxia Discharge Discharge Diagnosis / Problem: 1. Acute Bronchitis 2. Hypoxia Discharge Goals Goal(s): Improve disease control Activity Recommendations Activity Limitations: resume your previous activity (as tolerated) . Instructions / Follow-Up Instructions / Follow-Up NEW MEDICATIONS: 1. Z pack as directed 2. Prednisone as follows: 30 mg daily x 3 days and reduce by 10 mg every 3 days and than discontinue 3. Omeprazole 20 mg daily while you are on prednisone 4. Cough medications- as directed DIET: Low sugar diet especially while you are on steroids FOLLOW UP Dr Ramsey 08/03/16 at 10:30 AM Current Hospital Diet Patient's current hospital diet: Diabetes Type 2 Diet, Low Sodium Diet (2gm Na) Discharge Diet Recommended Diet: AHA Diet (Heart Healthy), Low Sodium Diet (2gm Na), Diabetes Type 2 Diet Pending Studies Studies pending at discharge: no Laboratory Results Hemoglobin A1c Test 07/28/16 10:20 Range/Units Estimated Average Glucose 114 mg/dl Hemoglobin A1c 5.6 4.5-5.6 % Medical Emergencies . Who to Call and When: Medical Emergencies: If at any time you feel your situation is an emergency, please call 911 immediately. . Non-Emergent Contact Non-Emergency issues call your: Primary Care Provider . . "Provider Documentation" section prepared by Lilo Klein. VTE Core Measure Inpt VTE Proph given/why not?: Enoxaparin (Lovenox)SQ
--- NOTE | 2016-07-31 09:47 | Discharge Summary ---
Discharge Summary Date of Service Jul 31, 2016. Discharge Summary Admission Date: Jul 28, 2016 at 16:22 Discharge Date: Jul 31, 2016 Discharge Disposition: Home Principal Diagnosis: 1. Hypoxia secondary to Acute bronchitis Secondary Diagnoses/Problems: 1. CKD-III 2. PTSD 3. Depression/Anxiety Procedures: CXR Nebs Steroids Consultations: None Pending Studies/Follow-Up: Instructions / Follow-Up Instructions / Follow-Up NEW MEDICATIONS: 1. Z pack as directed 2. Prednisone as follows: 30 mg daily x 3 days and reduce by 10 mg every 3 days and than discontinue 3. Omeprazole 20 mg daily while you are on prednisone 4. Cough medications- as directed DIET: Low sugar diet especially while you are on steroids FOLLOW UP Dr Ramsey 08/03/16 at 10:30 AM Medication Reconciliation New Medications: Albuterol Hfa (Ventolin Hfa) 200 Puffs/21981 Mcg Aers 2-4 PUFFS INH Q6H for sob/wheezing, #1 INHALER Azithromycin (Zithromax Z-Edwin) 250 Mg Tab 1 PKT PO UD for 5 Days, #1 PKT Omeprazole (Prilosec) 20 Mg Capcr 20 MG PO DAILY for 30 Days, #30 CAP Prednisone Tab (Prednisone) 10 Mg Tab 10 MG PO UD, #40 TAB Benzonatate (Benzonatate) 100 Mg Cap 100 MG PO TID for 5 Days, #15 CAP Guaifenesin (Robitussin) 100 Mg/5 Ml Amber 100 MG PO Q6H PRN for Cough for 5 Days Continued Medications: Acetaminophen (Tylenol) 500 Mg Tab 1000 MG PO DAILY PRN for Pain, TAB Clonazepam (Klonopin) 0.5 Mg Tab 0.5 MG PO TID PRN for Anxiety, #20 Multivitamin (Multivitamin) Tab 1 TABLET PO DAILY, 0 Refills Prazosin Hcl (Minipress) 2 Mg Cap 2 MG PO HS Tizanidine (Zanaflex) 4 Mg Cap 4 MG PO TID PRN, CAP NEEDED FOR BACK PAIN. Trazodone Hcl (Trazodone) 100 Mg Tab 200 MG PO HS, TAB Venlafaxine Hcl (Effexor Extended Rel) 150 Mg Cap 150 MG PO DAILY, CAP Vitamin B Complex (Vitamin B Complex) 1 Tab Tab 1 TABLET PO DAILY [cardio b] () 1 TAB PO DAILY [omega brite] () 3 CAP PO DAILY Admission Information HPI (per Admitting provider): 61 year old female who presents to the ER with cough and shortness of breath. Patient reports she started getting sick 6 days ago. She reports a persistent harsh cough that is occasionally productive for a white sputum. She reports mild shortness of breath on exertion. No shortness of breath at rest. She has had chills but did not take her temperature. She reports her throat is very sore from the persistent coughing. Her ribs and abdomen are sore as well. No chest pain. She denies lightheadedness, dizziness, diaphoresis, or syncope. She denies nausea, vomiting, or diarrhea. No urinary symptoms. In the ER, patient was saturating 89% on room air, this improved with oxygen 2L via NC. CXR is clear. She is afebrile with normal WBC. She has mild tachycardia that is improving with IVF. BP is stable. Rapid and PCR influenza are negative. She was also given a neb and is feeling a little better. Physical Exam (per Admitting): General Appearance: no apparent distress Head: normocephalic, + pertinent finding (no sinus tenderness) Eyes: normal inspection ENT: hearing grossly normal, + pharyngeal erythema (mild) Neck: supple, no JVD Respiratory/Chest: no respiratory distress, + decreased breath sounds, + wheezing (faint, scattered, expiratory) Cardiovascular: no edema, + tachycardia (mild, HR in the 90s-low 100s, regular rhythm) Abdomen/GI: normal bowel sounds, non tender, soft Extremities/Musculoskelatal: normal inspection, no calf tenderness Neurologic/Psych: no motor/sensory deficits, alert, normal mood/affect, oriented x 3 Skin: normal color, warm/dry Hospital Course HYPOXIA SECONDARY TO ACUTE BRONCHITIS : Improved, hypoxia resolved Presented with 6 days of harsh cough and mild shortness of breath on exertion; on arrival to ER, 89% on room air - No hx of asthma/COPD, but hx of smoking X 15 years (quit 16 years ago) - CXR clear, flu PCR negative, negative D. Dimer - Afebrile, normal WBC . Clinically improved, persistent cough, off oxygen, tender lymphadenopathy (pre auricular) - S/P IVF. Continue with nebs, Short course PO steroids- taper. Added tessalon pearls TID and robitussin PRN for cough. PLAN ON DISCHARGE: Continue with short prednisone taper. Will add z pack today as tender pre auricular lymphadenopathy + likely reactive secondary to above. Continue with anti tussives. Albuterol PRN will be prescribed. DM, DIET CONTROLLED - hgb a1c 5.4 10/2015 - check BSGs while on steroids - ISS added ETOH ABUSE - Patient reports drinking 6 pack beer/day; reports she had quit in the past however started again due to numerous deaths in her family - no problems with withdrawal in the past - monitor for signs DEPRESSION, ANXIETY, PTSD - continue home meds CKD STAGE III - baseline creat runs in the low 1's - Near baseline - continue to monitor, avoid nephrotoxic agents when able DVT PROPHYLAXIS - SQ Lovenox DISPO - Ambulating in [facility] - [place] to discharge home today Total time spent on discharge = 32 minutes This includes examination of the patient, discharge planning, medication reconciliation, and communication with other providers. Discharge Instructions Activity Recommendations Activity Limitations: resume your previous activity (as tolerated) . Instructions / Follow-Up Instructions / Follow-Up NEW MEDICATIONS: 1. Z pack as directed 2. Prednisone as follows: 30 mg daily x 3 days and reduce by 10 mg every 3 days and than discontinue 3. Omeprazole 20 mg daily while you are on prednisone 4. Cough medications- as directed DIET: Low sugar diet especially while you are on steroids FOLLOW UP Dr Ramsey 08/03/16 at 10:30 AM Current Hospital Diet Patient's current hospital diet: Diabetes Type 2 Diet, Low Sodium Diet (2gm Na) Discharge Diet Recommended Diet: AHA Diet (Heart Healthy), Low Sodium Diet (2gm Na), Diabetes Type 2 Diet Pending Studies Studies pending at discharge: no Laboratory Results Hemoglobin A1c Test 07/28/16 10:20 Range/Units Estimated Average Glucose 114 mg/dl Hemoglobin A1c 5.6 4.5-5.6 % Medical Emergencies . Who to Call and When: Medical Emergencies: If at any time you feel your situation is an emergency, please call 911 immediately. . Non-Emergent Contact Non-Emergency issues call your: Primary Care Provider . . "Provider Documentation" section prepared by Lilo Kleni. VTE Core Measure Inpt VTE Proph given/why not?: Enoxaparin (Lovenox)SQ
[2016-07-31 10:10] VITALS: BP 158/82; PULSE 91; TEMP 36.6; O2SAT 97
[2016-07-31] MEDS: GUAIFENESIN SUGAR FREE 100 MG/5 ML UDC PO PRN (10:30)
[2016-07-31 11:50] VITALS: BP 128/78; PULSE 87; TEMP 37.1; O2SAT 94
== END 2016-07-31 14:25 | disposition home or self-care (01) | DRG 203 ==
LOC: ENRESERVTM → ENRESERVDT → EDBD 09:51 → C.EDB 09:53 → EDBEDREQSVC 16:21 → EDBEDREQTM 16:21 → C.MS2W 16:22 → EDBEDREQ 16:28
PROVIDERS: ADMIT Hospitalist; ATTEND Internal Medicine
DX: J20.8 Acute bronchitis due to other specified organisms (principal); R09.02 Hypoxemia; F43.10 Post-traumatic stress disorder, unspecified; F41.9 Anxiety disorder, unspecified; F32.9 Major depressive disorder, single episode, unspecified; F10.10 Alcohol abuse, uncomplicated; N18.3 Chronic kidney disease, stage 3 (moderate); E11.22 Type 2 diabetes mellitus with diabetic chronic kidney disease; Z96.652 Presence of left artificial knee joint; R59.0 Localized enlarged lymph nodes; Z87.891 Personal history of nicotine dependence; Z98.1 Arthrodesis status; Z90.711 Acquired absence of uterus with remaining cervical stump; Z98.890 Other specified postprocedural states; Z83.3 Family history of diabetes mellitus; Z79.899 Other long term (current) drug therapy

== ENCOUNTER 2021-12-16 23:41 | Inpatient (IN) ==
[2021-12-17] MEDS ORDERED: LORazepam 2 MG/1 ML VIAL IV STA ×2 (00:39→04:09)
--- NOTE | 2021-12-17 00:44 | Emergency Department Note ---
Impression & Plan Acute hyponatremia, Medication withdrawal, Alcohol intoxication Admit to the [facility] ED Provider Note NAME: JARAD FUENTES AGE: 66 SEX: F ARRIVES VIA: Walk-In INFORMANT: Patient and her granddaughter ED PROVIDER(S): Haley Roblero DO CHIEF COMPLAINT: Dizziness and jerking movements PLAN: Disposition: Admit to the [facility] Condition: Fair MEDICAL DECISION MAKING: This is a 66-year-old female patient presents to the emergency department with [facility] complaints of symptoms. The patient ran out of her muscle relaxant approximately 2 weeks ago. she has taken this regularly for many years. Patient does admit to drinking alcohol daily. Her granddaughter explains that she drinks to excess daily and has to drink in order to not withdrawal. Sodium level was quite low and will require replacement to avoid seizures. Yazan the case with the [facility]ist and they will evaluate for further management Triage Nursing notes reviewed and agree with them. Additional history obtained from granddaughter who is at the bedside Prior medical records reviewed Vital Signs: reviewed and remarkable for hypertension and tachycardia Differential diagnosis: Medication withdrawal; alcohol intoxication; anxiety: Thyroid storm, withdrawal from alcohol, hyper glycemia ER treatment provided: Normal saline bolus IV Diagnostics interpreted by me: ECG: Sinus tachycardia at 104; no S T-segment elevations or signs of ischemia. There is no ectopy. Cardiac Monitoring: Normal sinus rhythm at 98 Laboratory studies: See below Imaging studies:as per stat rad CT head: No intracranial hemorrhage, mass-effect or midline shift. There is no abnormal extra-axial fluid collection. No evidence of acute infarct. Mild pe riventricular white matter hypodensities are most consistent with chronic microangiopathy. The visualized paranasal sinus and mastoid air cells are clear. No fracture. No visualized occipital lymphadenopathy. HPI: 66/F arrives for evaluation of dizziness and pain in her head. Patient has been feeling weird over the past week. She states that she stopped taking her muscle relaxant 2 weeks ago because she ran out. She does drink alcohol da waylon. She has been having dizziness and blurred vision and jerking movements that she describes it. Her doctor is decreasing her Effexor since that she has been started on Cymbalta. She also complains of some painful lumps at the base of her skull into her neck and behind her ears. ROS: See above HPI for pertinent positives & negatives. A total of 10 systems reviewed and were otherwise negative. PAST MEDICAL HISTORY:See Below PAST SURGICAL HISTORY:See Below FAMILY HISTORY:See Below SOCIAL HISTORY:See Below HOME MEDICATIONS:See list ALLERGIES:Sulfa VITALS:See Below PHYSICAL EXAMINATION: HEENT: Head - normocephalic and atraumatic. There are some palpable nodes at the suboccipital space bilaterally that are painful to touch. Pupils are equal, round, and reactive to light. The eyes appear to be proptotic. Extraocular eye muscles are intact, and sclera are anicteric. Nose - moist nasal mucosa without discharge. Mouth - moist buccal mucosa. Oropharynx is nonerythematous and there is no tonsillar exudate or edema noted. Neck: Supple; no JVD or cervical lymphadenopathy Heart: Tachycardic rate and regular rhythm. There is a normal S1 and S2 with no murmurs, clicks, or gallops appreciated. Lungs: Clear to auscultation bilaterally with no wheezes, rales, or rhonchi. Abdomen: Soft, completely nontender, nondistended, with good bowel sounds. There are no palpable pulsatile masses or hepatosplenomegaly. There is no guarding, rigidity, or rebound noted. Extremities: No evidence of cyanosis, clubbing, or edema. There are easily palpable peripheral pulses. Skin: warm and dry with good turgor and no rashes. ED COURSE: Times/Reassessments: 0015: Patient was evaluated in room C9. A complete history and physical was performed. Much of the detail was obtained from the patient's granddaughter who is at the bedside. An IV lock was initiated and labs were drawn as above. There was placed for continuous cardiac monitoring. The patient was in a sinus tachycardia at 104. She will go for CT scan of the brain. She will be started on a IV normal saline bolus. The case will be discussed with the [facility] Hospitalist. Haley Roblero DO Past Med/Surg History Medical History (Updated 12/17/21 @ 05:15 by Haley Roblero DO) Anxiety CKD (chronic kidney disease), stage III Depression Diet-controlled diabetes mellitus Dyslipidemia PTSD (post-traumatic stress disorder) Surgical History H/O arthroscopy of shoulder H/O right knee surgery H/O thumb surgery History of partial hysterectomy Family History Other Diabetes Heart disease Social History Smoking Status: Never smoker Preferred Language: Divehi Feels Safe at Home: Yes Allergies Allergies Allergy/AdvReac Type Severity Reaction Status Date / Time Sulfa (Sulfonamide Allergy Unknown Verified 10/01/20 11:27 Antibiotics) Home Meds Home Medications Medication Instructions Recorded Confirmed clonazepam 0.5 mg tablet 0.5 mg PO DAILY PRN Anxiety 12/12/19 10/01/20 omeprazole 20 mg capsule,delayed 20 mg PO DAILY 12/12/19 10/01/20 release prazosin 2 mg capsule 2 mg PO DAILY 12/12/19 10/01/20 tizanidine 4 mg tablet 4 mg PO DAILY 12/12/19 10/01/20 trazodone 100 mg tablet 200 mg PO HS 12/12/19 10/01/20 venlafaxine 150 mg 150 mg PO QAM 12/12/19 10/01/20 capsule,extended release 24 hr Results & Data (ED) Vital Signs Vital Signs - 24 hr 12/16/21 23:53 12/17/21 01:04 12/17/21 02:17 Temperature 36.5 C Temperature Source Temporal Artery Scan Pulse Rate 107 H 105 H Pulse Rate [Apical] Pulse Rhythm Respiratory Rate 18 19 Respiratory Effort / Characteristics Non-Labored Spontaneous Respiratory Depth Normal Blood Pressure 157/95 H 176/100 H Blood Pressure [Left Arm] Blood Pressure Mean 115 125 Blood Pressure Mean [Left Arm] Blood Pressure Position Sitting Pulse Oximetry 95 94 93 Oxygen Delivery Method Room Air Room Air Room Air Oxygen Flow Rate Sepsis Recent Fever Within 48 Hours No Sepsis New/Unexplained Change in Mental Status N/A Sepsis Action Taken by Nursing No Action Required 12/17/21 02:17 12/17/21 03:54 12/17/21 04:51 Temperature Temperature Source Pulse Rate 84 Pulse Rate [Apical] 107 H 98 H Pulse Rhythm Regular Respiratory Rate 21 22 20 Respiratory Effort / Characteristics Respiratory Depth Blood Pressure Blood Pressure [Left Arm] 190/124 H 156/109 H Blood Pressure Mean Blood Pressure Mean [Left Arm] 146 124 Blood Pressure Position Pulse Oximetry 93 92 93 Oxygen Delivery Method Room Air Room Air Nasal Cannula Oxygen Flow Rate 2 Sepsis Recent Fever Within 48 Hours Sepsis New/Unexplained Change in Mental Status Sepsis Action Taken by Nursing Laboratory Data Result diagrams: 12/17/21 00:43 12/17/21 00:43 Lab Results 12/17/21 12/17/21 12/17/21 Range/Units 00:43 00:43 00:43 WBC 9.07 (4.8-10.8) K/ul RBC 4.46 (3.93-5.22) M/uL Hgb 14.7 (12.0-16.0) g/dl Hct 40.5 (34.1-44.9) % MCV 90.8 (80.0-100.0) fL MCH 33.0 (25.0-34.0) pg MCHC 36.3 H (32.0-36.0) g/dL RDW Std Deviation 40.6 (36.4-46.3) fL RDW Coeff of Emmanuelle 12.3 (11.5-14.5) % Plt Count 133 (130-400) K/uL MPV 9.5 (9.4-12.3) fL Immature Gran % (Auto) 0.2 % Neut % (Auto) 68.0 % Lymph % (Auto) 21.6 % [place] % (Auto) 8.6 % Eos % (Auto) 1.2 % Baso % (Auto) 0.4 % Neut # (Auto) 6.16 (1.4-6.5) K/uL Lymph # (Auto) 1.96 (1.2-3.4) K/uL [place] # (Auto) 0.78 (0.24-0.82) K/uL Eos # (Auto) 0.11 (0-0.50) K/uL Baso # (Auto) 0.04 (0-0.2) K/uL Immature Gran # (Auto) 0.02 (0.00-0.02) K/uL Platelet Estimate Decreased L (Normal) Sodium 127 L (136-145) mmol/L Potassium 3.9 (3.5-5.1) mmol/L Chloride 89 L (98-107) mmol/L Carbon Dioxide 26 (21-32) mmol/L Anion Gap 12 H (3-11) BUN 6 (6-23) mg/dl Creatinine 0.75 (0.6-1.2) mg/dl Est Cr Clr Drug Dosing Not Reportable Est GFR ( Amer) 97.6 ml/min Est GFR (Non-Af Amer) 84.2 ml/min BUN/Creatinine Ratio 8.0 L (10-20) Glucose 256 H (70-99(Fasting)) mg/dl Osmolality (280-300) mOsm/kg Calcium 9.1 (8.5-10.1) mg/dl Magnesium 1.8 (1.7-2.4) mg/dl Total Bilirubin 0.6 (0.2-1.0) mg/dl AST 35 (13-39) U/L ALT 18 (7-52) U/L Alkaline Phosphatase 98 (34-104) U/L Total Protein 7.9 (6.0-8.3) gm/dl Albumin 4.0 (3.4-5.0) gm/dl Globulin 3.9 (2.5-4.0) gm/dl Albumin/Globulin Ratio 1.0 (0.9-2) TSH (0.300-4.500) uIu/ml Ethyl Alcohol mg/dL 71.5 H (<10.0) mg/dl SARS-CoV-2, RNA, NAAT (NEGATIVE) 12/17/21 12/17/21 12/17/21 Range/Units 00:43 00:43 03:40 WBC (4.8-10.8) K/ul RBC (3.93-5.22) M/uL Hgb (12.0-16.0) g/dl Hct (34.1-44.9) % MCV (80.0-100.0) fL MCH (25.0-34.0) pg MCHC (32.0-36.0) g/dL RDW Std Deviation (36.4-46.3) fL RDW Coeff of Emmanuelle (11.5-14.5) % Plt Count (130-400) K/uL MPV (9.4-12.3) fL Immature Gran % (Auto) % Neut % (Auto) % Lymph % (Auto) % [place] % (Auto) % Eos % (Auto) % Baso % (Auto) % Neut # (Auto) (1.4-6.5) K/uL Lymph # (Auto) (1.2-3.4) K/uL [place] # (Auto) (0.24-0.82) K/uL Eos # (Auto) (0-0.50) K/uL Baso # (Auto) (0-0.2) K/uL Immature Gran # (Auto) (0.00-0.02) K/uL Platelet Estimate (Normal) Sodium (136-145) mmol/L Potassium (3.5-5.1) mmol/L Chloride (98-107) mmol/L Carbon Dioxide (21-32) mmol/L Anion Gap (3-11) BUN (6-23) mg/dl Creatinine (0.6-1.2) mg/dl Est Cr Clr Drug Dosing Est GFR ( Amer) ml/min Est GFR (Non-Af Amer) ml/min BUN/Creatinine Ratio (10-20) Glucose (70-99(Fasting)) mg/dl Osmolality 299 (280-300) mOsm/kg Calcium (8.5-10.1) mg/dl Magnesium (1.7-2.4) mg/dl Total Bilirubin (0.2-1.0) mg/dl AST (13-39) U/L ALT (7-52) U/L Alkaline Phosphatase (34-104) U/L Total Protein (6.0-8.3) gm/dl Albumin (3.4-5.0) gm/dl Globulin (2.5-4.0) gm/dl Albumin/Globulin Ratio (0.9-2) TSH 2.295 (0.300-4.500) uIu/ml Ethyl Alcohol mg/dL (<10.0) mg/dl SARS-CoV-2, RNA, NAAT NEGATIVE (NEGATIVE) Administered Medications Discontinued Medications Sodium Chloride (Nss 1000ml) 1,000 mls @ 999 mls/hr IV .Q1H1M ONE Stop: 12/17/21 03:51 Last Infusion: 12/17/21 04:55 Dose: 0 mls/hr Documented By: Admin: 12/17/21 03:51 Dose: 999 mls/hr Documented By: UMAIR Lorazepam (Lorazepam 2 Mg/1 Ml Vial) 1 mg IV NOW STA; Protocol Stop: 12/17/21 00:40 Last Admin: 12/17/21 01:02 Dose: 1 mg Documented By: PAOLA Lorazepam (Lorazepam 2 Mg/1 Ml Vial) 1 mg IV NOW STA; Protocol Stop: 12/17/21 04:10 Last Admin: 12/17/21 04:15 Dose: 1 mg Documented By: AN Discharge Plan Visit Data Chief Complaint: Dizziness Stated Complaint: CLOGGED EARS,DIZZY,NUMB LEGS,SHAKING ED Provider: Haley Roblero Discharge Problem: Acute hyponatremia, Medication withdrawal, Alcohol intoxication Patient Disposition: Admitted As Inpatient Discharge Instructions Interventions: ED Discharge Assessment Last Done: 12/17/21 04:57 Forms Stand Alone Forms: [facility], [facility] Prescriptions Prescriptions: No Action tizanidine 4 mg tablet 4 mg PO DAILY clonazepam 0.5 mg tablet 0.5 mg PO DAILY PRN (Reason: Anxiety) venlafaxine 150 mg capsule,extended release 24hr 150 mg PO QAM trazodone 100 mg tablet 200 mg PO HS omeprazole 20 mg capsule,delayed release(DR/EC) 20 mg PO DAILY prazosin 2 mg capsule 2 mg PO DAILY Referrals Referrals: PCP,NO [Primary Care Provider] -
[2021-12-17 01:21] LABS: Alanine Aminotransferase 18 U/L (7-52); Alkaline Phosphatase 98 U/L (34-104); Anion Gap 12 (3-11); Aspartate Aminotransferase 35 U/L (13-39); Bilirubin,Total 0.6 mg/dl (0.2-1.0); Blood Urea Nitrogen 6 mg/dl (6-23); Calcium 9.1 mg/dl (8.5-10.1); Carbon Dioxide 26 mmol/L (21-32); Chloride 89 mmol/L (98-107); Est GFR (African American) 97.6 ml/min; Est GFR (Non-African American) 84.2 ml/min; Globulin 3.9 gm/dl (2.5-4.0); Glucose 256 mg/dl (70-99(Fasting)); Potassium 3.9 mmol/L (3.5-5.1); Sodium 127 mmol/L (136-145); Total Protein 7.9 gm/dl (6.0-8.3)
[2021-12-17 01:40] LABS: Basophils # (auto) 0.04 K/uL (0-0.2); Basophils % (auto) 0.4 %; Eosinophils # (auto) 0.11 K/uL (0-0.50); Eosinophils % (auto) 1.2 %; Hematocrit (blood only) 40.5 % (34.1-44.9); Hemoglobin 14.7 g/dl (12.0-16.0); Immature Granulocytes # (auto) 0.02 K/uL (0.00-0.02); Immature Granulocytes % (auto) 0.2 %; Lymphocytes # (auto) 1.96 K/uL (1.2-3.4); Lymphocytes % (auto) 21.6 %; Mean Corpuscular Hgb Conc 36.3 g/dL (32.0-36.0); Mean Corpuscular Volume 90.8 fL (80.0-100.0); Mean Platelet Volume 9.5 fL (9.4-12.3); Monocytes # (auto) 0.78 K/uL (0.24-0.82); Monocytes % (auto) 8.6 %; Neutrophils # (auto) 6.16 K/uL (1.4-6.5); Platelet Count 133 K/uL (130-400); Platelet Estimate Decreased (Normal); RDW Coefficient of Variation 12.3 % (11.5-14.5); RDW Standard Deviation 40.6 fL (36.4-46.3); Red Blood Count 4.46 M/uL (3.93-5.22); White Blood Count 9.07 K/ul (4.8-10.8)
[2021-12-17] MEDS ORDERED: SODIUM CHLORIDE 0.9% 1000ML 1,000 ML IV ONE (02:51)
--- NOTE | 2021-12-17 03:12 | History & Physical Report ---
Date of Service December 17, 2021 Assessment & Plan (1) Serotonin syndrome: Plan: Mira Ayala is a 66yo female with PMHx significant for T2DM (diet- controlled), CKD (unknown baseline Cr), dyslipidemia, depression, anxiety, PTSD and alcohol use disorder who presented to [facility] ED on 12/17 for a variety of complaints, including increased anxiety, restlessness, muscle tremors, occasional sweats, generalized tingling/numbness, and occasional diarrhea; symptoms lasting for ~2 weeks. Serotonin Syndrome Classic symptoms including anxiety/agitation, restlessness, muscle tremors, diaphoresis, diarrhea. Hypertensive/tachycardic in ED with hyperreflexia on exam. Patient self-uptitrated her Venlafaxine while continuing Duloxetine and high-dose Trazodone - is at increased risk for Serotonin syndrome with this psychiatric medication regimen. - UDS ordered - pending - hold home Venlafaxine, Duloxetine, and Trazodone - s/p Ativan 1mg IV in ED - will give another 1mg IV dose now, as patient remains symptomatic - will continue with further Ativan IV doses per AWSS protocol (see below) - may need to consider Cyproheptadine if BP/HR and other symptoms do not improve with Ativan - defer to primary team - PRN Tylenol for fever - Psychiatry consulted - appreciate recs Hyponatremia Given patient's significant chronic beer use (72-144 ounces per day), I suspect that the Na 127 on admission (129 corrected for hyperglycemia) is chronic due to beer potomania. Suspect that symptoms are largely due to serotonin syndrome. - serum/urine osmolality and urine sodium pending - s/p NSS 1L bolus - will check BMP Q4H (x4) - goal correction of 6-8mEq in first 24 hours Severe Alcohol Use Disorder 72-144 ounces of beer per day - last drink en route to the hospital (patient's granddaughter drove her here). BAL 71.5 on presentation. - AWSS protocol with Ativan IV, as stated above - will give banana bag now, then continue with Thiamine 100mg PO daily and Folic acid 1mg PO daily - once medically stable, would recommend discussion about inpatient rehab - per primary team Lumbar Paraspinal Muscle Spasms Chronic, after spinal fusion surgery several years ago. Was taking Tizanidine 8- 12mg daily for years but ran out ~2 weeks ago. Suspect that muscle tremors/spasms are largely due to serotonin syndrome rather than Tizanidine withdrawal, particularly because her symptoms are worsening despite being off of Tizanidine. - hold home Tizanidine Depression; Anxiety; PTSD - hold home Trazodone, Venlafaxine and Duloxetine as stated above - hold home Clonazepam - can continue home Prazosin - Psychiatry consulted as stated above T2DM Unknown previous A1c, not on medications. BSG 256 on presentation. - check A1c - SSI while hospitalized Peripheral Neuropathy Symptoms present and progressive x several months. Suspect due to alcohol abuse and diabetes. - check B12/folate FEN/GI: DM2 diet DVT Prophylaxis: Lovenox Code Status: full code Disposition: med/tele (2) Hyponatremia: (3) Severe alcohol use disorder: (4) Diet-controlled diabetes mellitus: (5) Lumbar paraspinal muscle spasm: (6) Depression: (7) Anxiety: (8) PTSD (post-traumatic stress disorder): History of Present Illness Chief Complaint: dizziness Primary Care Provider: NO PCP Mira Ayala is a 66yo female with PMHx significant for T2DM (diet- controlled), CKD (unknown baseline Cr), dyslipidemia, depression, anxiety, PTSD and alcohol use disorder who presented to [facility] ED on 12/17 for a variety of complaints, including increased anxiety, restlessness, muscle tremors, occasional sweats, generalized tingling/numbness, and occasional diarrhea; symptoms lasting for ~2 weeks and started after she ran out of Tizanidine. Patient was taking Tizanidine 8-12mg daily for "years" but ran out because she lost her PCP and does not have another one yet. Of note the patient has also been in the process of transitioning from Venlafaxine to Duloxetine. She sees a Psychiatrist for depression/anxiety and PTSD. Three months ago she was told to decrease Venlafaxine from 150mg to 112.5mg and to start taking Duloxetine 30mg. However she decreased Venlafaxine to 75mg at that time. When she started to have the above-mentioned symptoms several weeks ago, she increased her Venlafaxine to the prescribed 112.5mg. She has been taking Duloxetine at this time and is also taking Trazodone 200mg nightly. Patient denies fever/chills, syncope, near-syncope, confusion or seizures. Of note the patient drinks anywhere from 6-12 12-ounce beers per day for "a while". She had 4 12-ounce beers earlier in the night, with her last beer en route to the hospital. Patient denies previous seizures or hallucinations. Denies smoking or other drug use. In the ED the patient was initially tachycardic in 100s (sinus tachycardia per EKG) and hypertensive to 176/100. Labs significant for Na 127, Cl 89. BAL elevated at 71.5. K 3.9 and Cr 0.75. TSH 2.295. BSG 256. CT head w/o contrast wa s unremarkable. Patient received NSS 1L bolus and Ativan 1mg IV. Allergies Allergy/AdvReac Type Severity Reaction Status Date / Time Sulfa (Sulfonamide Allergy Unknown Verified 10/01/20 11:27 Antibiotics) Home Medications Medication Instructions Recorded Confirmed Type clonazepam 0.5 mg tablet 0.5 mg PO DAILY PRN Anxiety 12/12/19 10/01/20 History omeprazole 20 mg capsule,delayed 20 mg PO DAILY 12/12/19 10/01/20 History release prazosin 2 mg capsule 2 mg PO DAILY 12/12/19 10/01/20 History tizanidine 4 mg tablet 4 mg PO DAILY 12/12/19 10/01/20 History trazodone 100 mg tablet 200 mg PO HS 12/12/19 10/01/20 History venlafaxine 150 mg 150 mg PO QAM 12/12/19 10/01/20 History capsule,extended release 24 hr Past Med/Surg History Medical History (Updated 12/17/21 @ 05:15 by Haley Roblero DO) Anxiety CKD (chronic kidney disease), stage III Depression Diet-controlled diabetes mellitus Dyslipidemia PTSD (post-traumatic stress disorder) Surgical History H/O arthroscopy of shoulder H/O right knee surgery H/O thumb surgery History of partial hysterectomy Family History Other Diabetes Heart disease Social History Smoking Status: Former smoker Second Hand Exposure: No; Do You Dip or Chew Tobacco: No; Tobacco Cessation Education Requested by Patient: No Hx Alcohol Use: Yes Alcohol type: beer Hx Substance Use: No Preferred Language: Argentine Communication Ability: Effective Sports Cartoonist Required: No Beliefs That Will Affect Care: None Current Living Situation: Significant Other Current Living Situation Comment: Lives with boyfriend and emotional support dog Other Information That Helps Us Care for You: No Feels Safe at Home: Yes Safety Concerns: Feels Safe At This Time Assistive Devices: Bedside Commode, Cane, Denture - Upper, Denture - Lower and Glasses Review of Systems Review of Systems: All systems reviewed & are unremarkable except as noted in HPI & below Physical Exam Physical Exam: General: A&Ox3. NAD. Cooperative. HEENT: Atraumatic, normocephalic. Pulm: CTAB A&P. -wheezes, -rales, -rhonchi. Symmetrical chest rise. No increase work of breathing. No respiratory distress. Cardiac: RRR, -mrg. Radial pulses intact and symmetrical. Abdominal: soft, non-tender, non-distended, BS x 4 Neurologic: CN's II-XI intact bilaterally and awake Speech / Cognition: normal speech Motor/Sensory: + tremor and + sensory deficit (decreased sensation throughout feet bilaterally) Coordination: normal [id number] test and normal [id number] test +hyperreflexia (3+ patellar reflexes), without clonus Psychiatric: tearful, dysphoric, no SI/HI, no auditory/visual hallucinations Results & Data Results & Data ([facility]) Vital Signs (Past 12 Hours) Vital Signs Temp Pulse Resp BP Pulse Ox O2 Del Method 12/17/21 02:17 84 21 93 Room Air 12/17/21 02:17 93 Room Air 12/17/21 01:04 105 H 19 176/100 H 94 Room Air 12/16/21 23:53 36.5 C 107 H 18 157/95 H 95 Room Air Code Status & VTE Plan Code Status full code - discussed with patient Supervising Physician Co-Signing Physician Notes I personally saw and examined the patient. I verified all lechuga points and agree with resident physician Dr Abarca with the following exceptions and/or additions: 66 year old female presents with muscle rigidity and spasms for the last two weeks. Recently ran out tizanidine. O/E agitated, spontaneous clonus present, Hyperreflexia, HS tachycardia, regular rate, Chest CTAB, Abdo SNT A/P Symptoms and exam concerning for serotonin syndrome including hypertension, tachycardia, hyperreflexia on multiple serotonergic agents. Hold home Venlafaxine, Duloxetine, and Trazodone. Continue benzodiazepines. Will likely go through alcohol withdrawal while here in addition - monitor with AWSS and lorazepam as needed. Resident Activity Tracking Resident Involvement: Resident Care Provided Care Provided: Adult Hospital Medicine
[2021-12-17 03:18] LABS: Magnesium 1.8 mg/dl (1.7-2.4)
[2021-12-17] MEDS ORDERED: GLUCOSE 40% GEL 15 GM TUBE PO PRN (05:37)
[2021-12-17] MEDS ORDERED: GLUCAGON FOR INJ 1 MG VIAL SQ PRN (05:37)
[2021-12-17] MEDS ORDERED: ATIVAN IV ALCOHOL WITHDRAWL IV SCH (05:37)
[2021-12-17] MEDS ORDERED: GLUCOSE 10 TAB/TUBE PO PRN (05:37)
[2021-12-17] MEDS ORDERED: DEXTROSE 50% 50 ML SYRINGE IV PRN (05:37)
[2021-12-17] MEDS ORDERED: LORazepam 3 MG in SYRINGE 1.5 ML IV PRN (05:37)
[2021-12-17] MEDS ORDERED: CARBOHYDRATES FOR HYPOGLYCEMIA PO PRN (05:37)
[2021-12-17 05:38] LABS: Amphetamines+Metham, Urine Neg (Neg); Barbiturates, Urine Neg (Neg); Benzodiazepine, Urine Neg (Neg); Cocaine, Urine Neg (Neg); MDMA (Ecstacy), Urine Neg (Neg); Methadone, Urine Neg (Neg); Opiate, Urine Neg (Neg); Phencyclidine, Urine Neg (Neg)
[2021-12-17 05:38] LABS: Anion Gap 9 (3-11); BUN Creatinine Ratio 7.2 (10-20); Blood Urea Nitrogen 5 mg/dl (6-23); Calcium 8.9 mg/dl (8.5-10.1); Carbon Dioxide 28 mmol/L (21-32); Chloride 95 mmol/L (98-107); Est GFR (African American) 106.6 ml/min; Glucose 172 mg/dl (70-99(Fasting)); Potassium 3.7 mmol/L (3.5-5.1); Sodium 132 mmol/L (136-145)
[2021-12-17] MEDS ORDERED: MULTI-VITAMIN INFUSION 10 ML, THIAMINE HCL 100 MG, FOLIC ACID 1 MG in SODIUM CHLORIDE 0... IV ONE (06:00)
[2021-12-17] MEDS ORDERED: Patient's HEIGHT &/or WEIGHT Needed SCH (06:00)
--- NOTE | 2021-12-17 07:01 | Hospitalist Progress Note ---
Date of Service December 17, 2021 Assessment & Plan (1) Serotonin syndrome: Plan: Mira Ayala is a 66yo female with PMHx significant for T2DM (diet- controlled), CKD (unknown baseline Cr), dyslipidemia, depression, anxiety, PTSD and alcohol use disorder who presented to [facility] ED on 12/17 for a variety of complaints, including increased anxiety, restlessness, muscle tremors, occasional sweats, generalized tingling/numbness, and occasional diarrhea; symptoms lasting for ~2 weeks. Patient was taking Tizanidine 8-12mg daily for "years" but ran out because she lost her PCP and does not have another one yet. Of note the patient has also been in the process of transitioning from Venlafaxine to Duloxetine. She sees a Psychiatrist for depression/anxiety and PTSD. Three months ago she was told to decrease Venlafaxine from 150mg to 112.5mg and to start taking Duloxetine 30mg. However she decreased Venlafaxine to 75mg at that time. When she started to have the above-mentioned symptoms several weeks ago, she increased her Venlafaxine to the prescribed 112.5mg. She has been taking Duloxetine at this time and is also taking Trazodone 200mg nightly. Serotonin Syndrome Patient taking trazodone, venlafaxine, and duloxetine at home. She self titrated up on the venlafaxine when she started experiencing symptoms of anxiety, tremor, and restlessness. This did not improve symptoms. They continued to worsen. She is at risk of serotonin syndrome due to her med list. Classic symptoms including hypertension, tachycardia, hallucinations, anxiety/agitation, restlessness, muscle tremors, diaphoresis, diarrhea. Hypertensive/tachycardic in ED with hyperreflexia on exam. [] UDS ordered - BAL 71.5, otherwise negative [] hold home Venlafaxine, Duloxetine, and Trazodone [] will continue with further Ativan IV doses per AWSS protocol (see below) [] consider Cyproheptadine vs propranolol if BP/HR and other symptoms do not improve with Ativan [] PRN Tylenol for fever [] Psychiatry consulted - appreciate recs Hyponatremia Given patient's significant chronic beer use (72-144 ounces per day), I suspect that the Na 127 on admission (129 corrected for hyperglycemia) is chronic due to beer potomania. Suspect that symptoms are largely due to serotonin syndrome. [] will check BMP Q4H (x4) - Na 132 after 1L bolus [] goal correction of 6-8mEq in first 24 hours [] calculate FeNa - ordered UCr, Na 132, Carlita 37, Cr 0.69 Severe Alcohol Use Disorder 72-144 ounces of beer per day - last drink en route to the hospital (patient's granddaughter drove her here). BAL 71.5 on presentation. Patient has had a difficult life and has a lot of unpacked trauma. She notes that she does use alcohol to self medicate. We had a lengthy discussion about alcohol cessation. She is contemplative at this time, but not ready for action. Will continue to discuss during her hospital course. [] AWSS protocol with Ativan IV, as stated above [] Thiamine 100mg PO daily and Folic acid 1mg PO daily [] once medically stable, would recommend discussion about inpatient rehab Lumbar Paraspinal Muscle Spasms Chronic, after spinal fusion surgery several years ago. Was taking Tizanidine 8-12mg daily for years but ran out ~2 weeks ago. Suspect that muscle tremors/spasms are largely due to serotonin syndrome rather than Tizanidine withdrawal, particularly because her symptoms are worsening despite being off of Tizanidine. [] hold home Tizanidine [] heating pad Depression; Anxiety; PTSD [] hold home Trazodone, Venlafaxine and Duloxetine as stated above [] hold home Clonazepam [] can continue home Prazosin [] Psychiatry consulted as stated above T2DM Unknown previous A1c, not on medications. BSG 256 on presentation. [] check A1c - 8.3% [] SSI while hospitalized Peripheral Neuropathy Symptoms present and progressive x several months. Suspect due to alcohol abuse and diabetes. [] check B12/folate FEN/GI: DM2 diet DVT Prophylaxis: Lovenox Code Status: full code Disposition: med/tele (2) Hyponatremia: (3) Severe alcohol use disorder: (4) Diet-controlled diabetes mellitus: (5) Lumbar paraspinal muscle spasm: (6) Depression: (7) Anxiety: (8) PTSD (post-traumatic stress disorder): Admission and Anticipated Discharge Date Admission Date: December 17, 2021 Supervising Physician Co-Signing Physician Notes Patient seen and examined with PGY-1 Dr. Schaeffer. Agree with history, exam findings, assessment and plan of care as outlined. In brief, Ms Gilbert is a 66 year old female with history of AUD, depression, anxiety, PTSD and diabetes admitted with hyponatremia, serotonin syndrome, and alcohol intoxication. Reports feeling tremulous and jerky. She is concerned about being completely off the SNRIs because of discontinuation symptoms. She follows with a psychiatry provider at [facility] in [place] (Lynnette). She is ambivalent about cutting down or stopping alcohol consumption. Does report that often will increase alcohol consumption if she is feeling down, etc. Daughter reports that Mira was alcohol free for many years at one point--was in a program. Family has tried to encourage Mira to consider rehab programs, but this has not gone well. VS and nursing notes reviewed. Anxious, tremulous. Nontoxic appearing. No nystagmus or ocular clonus. +1 Achilles and Patellar DTRs bilaterally. Labs and imaging reviewed. 1. serotonin syndrome. Hyperreflexia has resolved. Still tremulous and anxious. Holding venlafaxine, duloxetine, trazodone. Of note, will need to be careful we don't cross into intolerable discontinuation type symptoms with abrupt cessation of the SNRIs. 2. hyponatremia. Secondary to beer potomania. Na is normalized now. 3. AUD, alcohol withdrawal. BAL 71 on admission, last drink was immediately prio r to admission. Continue with ativan PRN with AWSS. Could consider gabapentin in the short term as well. 4. depression, anxiety, PTSD. Holding SNRi and Klonopin. Will call psychiatric provider to verify meds. Continue home prazosin. 5. DM2. A1C 8.3% on admission. Currently on sliding scale. Consider starting metformin as an outpatient. 5. lumbar paraspinal muscle spasms. Previously on chronic tizanidine, but has not been on this for a couple of weeks now. Dispo: pending clinical improvement. Subjective The patient reports feeling shaky and jerky. She notes that the ativan helps some. The patient states that this is scary and she wants to know what is going on. She is accompanied by her daughter. She is willing to have a discussion a bout her alcohol use today. Review of Systems Review of Systems: See HPI/Subjective Physical Exam Physical Exam: General: A&Ox3. NAD. Cooperative. HEENT: Atraumatic, normocephalic. Pulm: CTAB A&P. -wheezes, -rales, -rhonchi. Symmetrical chest rise. No increase work of breathing. No respiratory distress. Cardiac: RRR, -mrg. Radial pulses intact and symmetrical. Abdominal: soft, non-tender, non-distended Neurologic: CN's II-XI intact bilaterally and awake Speech / Cognition: normal speech Motor/Sensory: + tremor Results & Data Results & Data ([facility]) Vital Signs (Past 12 Hours) Vital Signs Temp Pulse Pulse Resp BP BP Pulse Ox 12/17/21 05:37 36.6 C 12/17/21 05:37 36.6 C 102 H 18 179/105 H 92 12/17/21 04:51 98 H 20 156/109 H 93 12/17/21 03:54 107 H 22 190/124 H 92 12/17/21 02:17 84 21 93 12/17/21 02:17 93 12/17/21 01:04 105 H 19 176/100 H 94 12/16/21 23:53 36.5 C 107 H 18 157/95 H 95 O2 Del Method O2 Flow Rate 12/17/21 05:37 12/17/21 05:37 Room Air 12/17/21 04:51 Nasal Cannula 2 12/17/21 03:54 Room Air 12/17/21 02:17 Room Air 12/17/21 02:17 Room Air 12/17/21 01:04 Room Air 12/16/21 23:53 Room Air Laboratory Results 12/17/21 12/17/21 12/17/21 Range/Units 07:56 04:41 04:41 WBC (4.8-10.8) K/ul RBC (3.93-5.22) M/uL Hgb (12.0-16.0) g/dl Hct (34.1-44.9) % MCV (80.0-100.0) fL MCH (25.0-34.0) pg MCHC (32.0-36.0) g/dL RDW Std Deviation (36.4-46.3) fL RDW Coeff of Emmanuelle (11.5-14.5) % Plt Count (130-400) K/uL MPV (9.4-12.3) fL Immature Gran % (Auto) % Neut % (Auto) % Lymph % (Auto) % [place] % (Auto) % Eos % (Auto) % Baso % (Auto) % Neut # (Auto) (1.4-6.5) K/uL Lymph # (Auto) (1.2-3.4) K/uL [place] # (Auto) (0.24-0.82) K/uL Eos # (Auto) (0-0.50) K/uL Baso # (Auto) (0-0.2) K/uL Immature Gran # (Auto) (0.00-0.02) K/uL Platelet Estimate (Normal) Sodium 132 L (136-145) mmol/L Potassium 3.7 (3.5-5.1) mmol/L Chloride 95 L (98-107) mmol/L Carbon Dioxide 28 (21-32) mmol/L Anion Gap 9 (3-11) BUN 5 L (6-23) mg/dl Creatinine 0.69 (0.6-1.2) mg/dl Est Cr Clr Drug Dosing Not Reportable Est GFR ( Amer) 106.6 ml/min Est GFR (Non-Af Amer) 92.0 ml/min BUN/Creatinine Ratio 7.2 L (10-20) Glucose 172 H (70-99(Fasting)) mg/dl POC Glucose 190 H (70-99) mg/dl Estimat Average Glucose 192 mg/dl Hemoglobin A1c 8.3 H (4.5-5.6) % Osmolality (280-300) mOsm/kg Calcium 8.9 (8.5-10.1) mg/dl Magnesium (1.7-2.4) mg/dl Total Bilirubin (0.2-1.0) mg/dl AST (13-39) U/L ALT (7-52) U/L Alkaline Phosphatase (34-104) U/L Total Protein (6.0-8.3) gm/dl Albumin (3.4-5.0) gm/dl Globulin (2.5-4.0) gm/dl Albumin/Globulin Ratio (0.9-2) TSH (0.300-4.500) uIu/ml Urine Osmolality (500-800) mOsm/kg Ur Random Sodium mmol/L Urine Opiates Screen (Neg) Ur Methadone, Qual (Neg) Urine Barbiturates (Neg) Ur Phencyclidine (PCP) (Neg) U Amphetamin/Meth Scrn (Neg) MDMA (Ecstasy) Screen (Neg) U Benzodiazepines Scrn (Neg) Ur Cocaine Metabolite (Neg) U Marijuana (THC) Screen (Neg) Ethyl Alcohol mg/dL (<10.0) mg/dl SARS-CoV-2, RNA, NAAT (NEGATIVE) 12/17/21 12/17/21 12/17/21 Range/Units 04:30 04:30 04:30 WBC (4.8-10.8) K/ul RBC (3.93-5.22) M/uL Hgb (12.0-16.0) g/dl Hct (34.1-44.9) % MCV (80.0-100.0) fL MCH (25.0-34.0) pg MCHC (32.0-36.0) g/dL RDW Std Deviation (36.4-46.3) fL RDW Coeff of Emmanuelle (11.5-14.5) % Plt Count (130-400) K/uL MPV (9.4-12.3) fL Immature Gran % (Auto) % Neut % (Auto) % Lymph % (Auto) % [place] % (Auto) % Eos % (Auto) % Baso % (Auto) % Neut # (Auto) (1.4-6.5) K/uL Lymph # (Auto) (1.2-3.4) K/uL [place] # (Auto) (0.24-0.82) K/uL Eos # (Auto) (0-0.50) K/uL Baso # (Auto) (0-0.2) K/uL Immature Gran # (Auto) (0.00-0.02) K/uL Platelet Estimate (Normal) Sodium (136-145) mmol/L Potassium (3.5-5.1) mmol/L Chloride (98-107) mmol/L Carbon Dioxide (21-32) mmol/L Anion Gap (3-11) BUN (6-23) mg/dl Creatinine (0.6-1.2) mg/dl Est Cr Clr Drug Dosing Est GFR ( Amer) ml/min Est GFR (Non-Af Amer) ml/min BUN/Creatinine Ratio (10-20) Glucose (70-99(Fasting)) mg/dl POC Glucose (70-99) mg/dl Estimat Average Glucose mg/dl Hemoglobin A1c (4.5-5.6) % Osmolality (280-300) mOsm/kg Calcium (8.5-10.1) mg/dl Magnesium (1.7-2.4) mg/dl Total Bilirubin (0.2-1.0) mg/dl AST (13-39) U/L ALT (7-52) U/L Alkaline Phosphatase (34-104) U/L Total Protein (6.0-8.3) gm/dl Albumin (3.4-5.0) gm/dl Globulin (2.5-4.0) gm/dl Albumin/Globulin Ratio (0.9-2) TSH (0.300-4.500) uIu/ml Urine Osmolality 123 L (500-800) mOsm/kg Ur Random Sodium 37 mmol/L Urine Opiates Screen Neg (Neg) Ur Methadone, Qual Neg (Neg) Urine Barbiturates Neg (Neg) Ur Phencyclidine (PCP) Neg (Neg) U Amphetamin/Meth Scrn Neg (Neg) MDMA (Ecstasy) Screen Neg (Neg) U Benzodiazepines Scrn Neg (Neg) Ur Cocaine Metabolite Neg (Neg) U Marijuana (THC) Screen Neg (Neg) Ethyl Alcohol mg/dL (<10.0) mg/dl SARS-CoV-2, RNA, NAAT (NEGATIVE) 12/17/21 12/17/21 12/17/21 Range/Units 03:40 00:43 00:43 WBC (4.8-10.8) K/ul RBC (3.93-5.22) M/uL Hgb (12.0-16.0) g/dl Hct (34.1-44.9) % MCV (80.0-100.0) fL MCH (25.0-34.0) pg MCHC (32.0-36.0) g/dL RDW Std Deviation (36.4-46.3) fL RDW Coeff of Emmanuelle (11.5-14.5) % Plt Count (130-400) K/uL MPV (9.4-12.3) fL Immature Gran % (Auto) % Neut % (Auto) % Lymph % (Auto) % [place] % (Auto) % Eos % (Auto) % Baso % (Auto) % Neut # (Auto) (1.4-6.5) K/uL Lymph # (Auto) (1.2-3.4) K/uL [place] # (Auto) (0.24-0.82) K/uL Eos # (Auto) (0-0.50) K/uL Baso # (Auto) (0-0.2) K/uL Immature Gran # (Auto) (0.00-0.02) K/uL Platelet Estimate (Normal) Sodium (136-145) mmol/L Potassium (3.5-5.1) mmol/L Chloride (98-107) mmol/L Carbon Dioxide (21-32) mmol/L Anion Gap (3-11) BUN (6-23) mg/dl Creatinine (0.6-1.2) mg/dl Est Cr Clr Drug Dosing Est GFR ( Amer) ml/min Est GFR (Non-Af Amer) ml/min BUN/Creatinine Ratio (10-20) Glucose (70-99(Fasting)) mg/dl POC Glucose (70-99) mg/dl Estimat Average Glucose mg/dl Hemoglobin A1c (4.5-5.6) % Osmolality 299 (280-300) mOsm/kg Calcium (8.5-10.1) mg/dl Magnesium (1.7-2.4) mg/dl Total Bilirubin (0.2-1.0) mg/dl AST (13-39) U/L ALT (7-52) U/L Alkaline Phosphatase (34-104) U/L Total Protein (6.0-8.3) gm/dl Albumin (3.4-5.0) gm/dl Globulin (2.5-4.0) gm/dl Albumin/Globulin Ratio (0.9-2) TSH 2.295 (0.300-4.500) uIu/ml Urine Osmolality (500-800) mOsm/kg Ur Random Sodium mmol/L Urine Opiates Screen (Neg) Ur Methadone, Qual (Neg) Urine Barbiturates (Neg) Ur Phencyclidine (PCP) (Neg) U Amphetamin/Meth Scrn (Neg) MDMA (Ecstasy) Screen (Neg) U Benzodiazepines Scrn (Neg) Ur Cocaine Metabolite (Neg) U Marijuana (THC) Screen (Neg) Ethyl Alcohol mg/dL (<10.0) mg/dl SARS-CoV-2, RNA, NAAT NEGATIVE (NEGATIVE) 12/17/21 12/17/21 12/17/21 Range/Units 00:43 00:43 00:43 WBC 9.07 (4.8-10.8) K/ul RBC 4.46 (3.93-5.22) M/uL Hgb 14.7 (12.0-16.0) g/dl Hct 40.5 (34.1-44.9) % MCV 90.8 (80.0-100.0) fL MCH 33.0 (25.0-34.0) pg MCHC 36.3 H (32.0-36.0) g/dL RDW Std Deviation 40.6 (36.4-46.3) fL RDW Coeff of Emmanuelle 12.3 (11.5-14.5) % Plt Count 133 (130-400) K/uL MPV 9.5 (9.4-12.3) fL Immature Gran % (Auto) 0.2 % Neut % (Auto) 68.0 % Lymph % (Auto) 21.6 % [place] % (Auto) 8.6 % Eos % (Auto) 1.2 % Baso % (Auto) 0.4 % Neut # (Auto) 6.16 (1.4-6.5) K/uL Lymph # (Auto) 1.96 (1.2-3.4) K/uL [place] # (Auto) 0.78 (0.24-0.82) K/uL Eos # (Auto) 0.11 (0-0.50) K/uL Baso # (Auto) 0.04 (0-0.2) K/uL Immature Gran # (Auto) 0.02 (0.00-0.02) K/uL Platelet Estimate Decreased L (Normal) Sodium 127 L (136-145) mmol/L Potassium 3.9 (3.5-5.1) mmol/L Chloride 89 L (98-107) mmol/L Carbon Dioxide 26 (21-32) mmol/L Anion Gap 12 H (3-11) BUN 6 (6-23) mg/dl Creatinine 0.75 (0.6-1.2) mg/dl Est Cr Clr Drug Dosing Not Reportable Est GFR ( Amer) 97.6 ml/min Est GFR (Non-Af Amer) 84.2 ml/min BUN/Creatinine Ratio 8.0 L (10-20) Glucose 256 H (70-99(Fasting)) mg/dl POC Glucose (70-99) mg/dl Estimat Average Glucose mg/dl Hemoglobin A1c (4.5-5.6) % Osmolality (280-300) mOsm/kg Calcium 9.1 (8.5-10.1) mg/dl Magnesium 1.8 (1.7-2.4) mg/dl Total Bilirubin 0.6 (0.2-1.0) mg/dl AST 35 (13-39) U/L ALT 18 (7-52) U/L Alkaline Phosphatase 98 (34-104) U/L Total Protein 7.9 (6.0-8.3) gm/dl Albumin 4.0 (3.4-5.0) gm/dl Globulin 3.9 (2.5-4.0) gm/dl Albumin/Globulin Ratio 1.0 (0.9-2) TSH (0.300-4.500) uIu/ml Urine Osmolality (500-800) mOsm/kg Ur Random Sodium mmol/L Urine Opiates Screen (Neg) Ur Methadone, Qual (Neg) Urine Barbiturates (Neg) Ur Phencyclidine (PCP) (Neg) U Amphetamin/Meth Scrn (Neg) MDMA (Ecstasy) Screen (Neg) U Benzodiazepines Scrn (Neg) Ur Cocaine Metabolite (Neg) U Marijuana (THC) Screen (Neg) Ethyl Alcohol mg/dL 71.5 H (<10.0) mg/dl SARS-CoV-2, RNA, NAAT (NEGATIVE) Resident Activity Tracking Resident Involvement: Resident Care Provided Care Provided: [facility]
[2021-12-17 07:17] LABS: Estimated Average Glucose 192 mg/dl; Hemoglobin A1C 8.3 % (4.5-5.6)
--- NOTE | 2021-12-17 07:27 | CT Scan Report ---
CT head/brain wo con CLINICAL HISTORY: occipital lymph nodes; blurred vision . Dizziness COMPARISON STUDY: 12/12/2019 CT DOSE: 614.27 mGy.cm TECHNIQUE: Standard CT of the Brain was performed without IV contrast. A dose lowering technique was utilized adhering to the principles of ALARA. FINDINGS: Extraaxial space: There is no evidence for subdural hematoma. There are no extra-axial fluid collecti ons. Ventricles and cisterns: The ventricles are mildly dilated bilaterally. There is no evidence for midl ine shift or mass effect. Parenchyma: There is no subarachnoid or intraparenchymal hemorrhage. There is no evidence for an acut e infarct or cerebral edema. There is mild cerebral cortical atrophy and decreased attenuation in the periventricular white matter representing remote small vessel disease. There are no gross mass lesio ns. Osseous structures: There is no evidence for an acute fracture. The visualized paranasal sinuses are clear. The mastoid air cells are clear bilaterally. Soft tissues: There is no evidence for focal soft tissue swelling. There is no evidence for occipital lymphadenopathy. IMPRESSION: 1. No acute intracerebral pathology. 2. Mild cerebral cortical atrophy and remote small vessel disease. ACT 112: Negative or not required by law. Electronically signed by: Jem Ruggiero M.D. 12/17/2021 7:25 AM
--- NOTE | 2021-12-17 07:33 | Billing Data ---
Date of Service December 16, 2021 Coding Level of Care Code 02339 Initial Inpt Care Lvl 3
[2021-12-17] MEDS: PANTOprazole 40 MG TAB PO SCH (08:05)
[2021-12-17] MEDS: THIAMINE HCL 100 MG TAB PO SCH (08:05)
[2021-12-17] MEDS: FOLIC ACID 1 MG TAB PO SCH (08:05)
[2021-12-17] MEDS: ENOXAPARIN INJ 40 MG/0.4 ML SYR SQ SCH (08:48)
[2021-12-17] MEDS: PRAZOSIN HCL 1 MG CAP PO SCH (08:48)
[2021-12-17] MEDS: LORazepam 1 MG in SYRINGE 0.5 ML IV PRN ×2 (08:49→10:40)
[2021-12-17] MEDS: INSULIN ASPART PER UNIT SC SCH ×4 (08:50→21:26)
[2021-12-17 11:45] LABS: BUN Creatinine Ratio 9.6 (10-20); Calcium 8.8 mg/dl (8.5-10.1); Creatinine Clr Calc Pharmacy 92.7 ml/min; Est GFR (African American) 100.9 ml/min
--- NOTE | 2021-12-17 12:31 | Electrocardiogram Report ---
Test Reason : Blood Pressure : / mmHG Vent. Rate : 104 BPM Atrial Rate : 104 BPM P-R Int : 120 ms QRS Dur : 078 ms QT Int : 340 ms P-R-T Axes : 049 022 042 degrees QTc Int : 447 ms Poor data quality, interpretation may be adversely affected Sinus tachycardia Otherwise normal ECG When compared with ECG of 28-JUL-2016 10:30, No significant change was found Confirmed by Feng Hernandez ([id number] on 12/17/2021 12:31:14 PM Referred By: REFERRED SELF Confirmed By:Samm Hernandez
[2021-12-17 13:27] LABS: BUN Creatinine Ratio 10.5 (10-20); Calcium 8.8 mg/dl (8.5-10.1); Est GFR (African American) 96.1 ml/min; Est GFR (Non-African American) 82.9 ml/min; Potassium 4.4 mmol/L (3.5-5.1)
[2021-12-17 17:37] LABS: BUN Creatinine Ratio 12.3 (10-20); Calcium 8.7 mg/dl (8.5-10.1); Creatinine Clr Calc Pharmacy 83.5 ml/min; Est GFR (Non-African American) 76.8 ml/min; Potassium 4.2 mmol/L (3.5-5.1)
[2021-12-17] MEDS: LORazepam 2 MG in SYRINGE 1 ML IV PRN (18:02)
[2021-12-17] MEDS: ONDANSETRON INJ 2 MG/ML 2 ML VIAL IV PRN (23:49)
[2021-12-18] MEDS: ACETAMINOPHEN 325 MG TAB PO PRN ×2 (00:15→08:08)
[2021-12-18] MEDS: LORazepam 1 MG in SYRINGE 0.5 ML IV PRN ×4 (00:15→23:59)
--- NOTE | 2021-12-18 07:19 | Hospitalist Progress Note ---
Date of Service December 18, 2021 Assessment & Plan (1) Serotonin syndrome: (2) Hyponatremia: (3) Severe alcohol use disorder: (4) Diet-controlled diabetes mellitus: (5) Lumbar paraspinal muscle spasm: (6) Depression: (7) Anxiety: (8) PTSD (post-traumatic stress disorder): Plan Mira Ayala is a 66 y/o female with PMHx significant for T2DM (diet- controlled), dyslipidemia, depression, anxiety, PTSD and alcohol use disorder who presented to [facility] ED on 12/17 for a variety of complaints, including increased anxiety, restlessness, muscle tremors, occasional sweats, generalized tingling/numbness, and occasional diarrhea; symptoms lasting for ~2 weeks. Patient was taking Tizanidine 8-12mg daily for "years" but ran out because she lost her PCP and does not have another one yet. Of note the patient has also been in the process of transitioning from Venlafaxine to Duloxetine. She sees a Psychiatrist for depression/anxiety and PTSD. Three months ago she was told to decrease Venlafaxine from 150mg to 112.5mg and to start taking Duloxetine 30mg. However she decreased Venlafaxine to 75mg at that time. When she started to have the above-mentioned symptoms several weeks ago, she increased her Venlafaxine to the prescribed 112.5mg. She has been taking Duloxetine at this time and is also taking Trazodone 200mg nightly. #Serotonin Syndrome Patient taking trazodone, venlafaxine, and duloxetine at home. She self titrated up on the venlafaxine when she started experiencing symptoms of anxiety, tremor, and restlessness. This did not improve symptoms. They continued to worsen. She is at risk of serotonin syndrome due to her med list. Classic symptoms including hypertension, tachycardia, hallucinations, anxiety/agitation, restlessness, muscle tremors, diaphoresis, diarrhea. Hypertensive/tachycardic in ED with hyperreflexia on exam. UDS - BAL 71.5 otherwise negative Patient was seen by Psych. Once serotonin syndrome has improved okay to restart Cymbalta and trazodone. Keep effexor discontinued. Either discontinue or only provide a few tabs of klonopin (~5) on discharge due to the risks with alcohol. [] holding home Venlafaxine, Duloxetine, and Trazodone [] will continue with further Ativan IV doses per AWSS protocol (see below) [] PRN Tylenol for fever [] Psychiatry on board - appreciate recs [] Will call [facility]) 12/19 - verify meds Hypertension/Tachycardia Patient is hypertensive and tachycardic likely in the setting of serotonin syndrome, alcohol withdrawal, and anxiety. Consider cyproheptadine vs propranolol if BP/HR/other symptoms do not improve with Ativan [] consider Cyproheptadine vs propranolol if BP/HR and other symptoms do not improve with Ativan #Severe Alcohol Use Disorder 72-144 ounces of beer per day - last drink en route to the hospital (patient's granddaughter drove her here). BAL 71.5 on presentation. Patient has had a difficult life and has a lot of unpacked trauma. She notes that she does use alcohol to self medicate. We had a lengthy discussion about alcohol cessation. She is contemplative at this time, but not ready for action. Will continue to discuss during her hospital course. Per psych, patient agreed to stop drinking during their discussion today. They offered resources and options such as outpatient dual diagnosis therapy at [facility]. She stated that she did not need additional support. [] On AWSS protocol with Ativan IV, as stated above [] Giving thiamine 100mg PO daily and Folic acid 1mg PO daily Hyponatremia: resolved Given patient's significant chronic beer use (72-144 ounces per day), I suspect that the Na 127 on admission (129 corrected for hyperglycemia) is chronic due to beer potomania. Suspect that symptoms are largely due to serotonin syndrome. Na 134 (136 corrected for hyperglycemia) Depression; Anxiety; PTSD [] hold home Trazodone, Venlafaxine and Duloxetine as stated above [] hold home Clonazepam [] can continue home Prazosin [] Psychiatry consulted as stated above T2DM Unknown previous A1c, not on medications. BSG 256 on presentation. [] check A1c - 8.3% [] SSI while hospitalized Peripheral Neuropathy Symptoms present and progressive x several months. Suspect due to alcohol abuse and diabetes. B12 726. Folate 18.57. Lumbar Paraspinal Muscle Spasms Chronic, after spinal fusion surgery several years ago. Was taking Tizanidine 8- 12mg daily for years but ran out ~2 weeks ago. Suspect that muscle tremors/sp asms are largely due to serotonin syndrome rather than Tizanidine withdrawal, particularly because her symptoms are worsening despite being off of Tizanidine. [] hold home Tizanidine CKD Chart indicates CKD III. Cr in hospital is 0.76. Full up outpatient. FEN/GI: DM2 diet DVT Prophylaxis: Lovenox Code Status: full code Disposition: med/tele Admission and Anticipated Discharge Date Admission Date: December 17, 2021 Supervising Physician Co-Signing Physician Notes Attending attestation Pt seen and examined in concert with Dr. Schaeffer. In agreement with the documented findings as noted in the resident documentation with any exceptions or additions as noted here. 66 year old female with history of AUD, depression, anxiety, PTSD and diabetes admitted with hyponatremia, serotonin syndrome, and alcohol intoxication. Ongoing sensation of tremulousness and significant anxiety, mostly centered around her medications and what will happen after hospitalization. Open to etOH cessation, quit 'all by herself' last time but barriers including s/o who lives with her and continues to drink and smoke marijuana. Will discuss these issues with him, but also concerned for her own health. Precontemplative re: rehabilitation services. On examination, S1/S2 nl RRR no MCG. CTAB. Abd NT/ND BS+ve. Anxious appearing and tremulous, though the tremor improves considerably with distraction. VS and nursing notes reviewed. Serotonin syndrome - psychiatric consultation appreciated. Will restart duloxetine and trazodone tomorrow, starting with duloxetine and montior for the day. Alcohol use disorder w/ withdrawal - AWSS per protocol with gradual improvement. Strongly encourage use of supporting services for cessation to avoid similar. DMII - reviewed need for improved glucose control as patient re-engages weight loss and etOH cessation. Will restart metformin on d/c Else see resident documentation as noted. Subjective Patient notes continued tremulousness, shaking, and sweating about every 2 hours. She states that she is feeling a tiny bit better. The patient has not had a BM, but usually has diarrhea at home. Review of Systems Review of Systems: See HPI/Subjective Physical Exam Physical Exam: General: A&Ox3. NAD. Cooperative. HEENT: Atraumatic, normocephalic. Pulm: CTAB A&P. -wheezes, -rales, -rhonchi. Symmetrical chest rise. No increase work of breathing. No respiratory distress. Cardiac: RRR, -mrg. Radial pulses intact and symmetrical. Abdominal: soft, non-tender, non-distended Neurologic: CN's II-XI intact bilaterally and awake Speech / Cognition: normal speech Motor/Sensory: + tremor (slight, decreases with distraction) Results & Data Results & Data ([facility]) Vital Signs (Past 12 Hours) Vital Signs Temp Pulse Pulse Resp BP BP Pulse Ox 12/18/21 06:39 36.7 C 104 H 18 172/98 H 95 12/18/21 02:36 36.3 C L 110 H 18 179/104 H 94 12/17/21 22:15 93 H 12/17/21 23:06 36.8 C 99 H 18 177/122 H 174/110 H 90 O2 Del Method O2 Flow Rate 12/18/21 06:39 Nasal Cannula 2 12/18/21 02:36 Nasal Cannula 1 12/17/21 22:15 12/17/21 23:06 Room Air Laboratory Results 12/18/21 12/18/21 12/18/21 Range/Units 07:56 06:47 06:47 WBC 8.32 (4.8-10.8) K/ul RBC 4.38 (3.93-5.22) M/uL Hgb 14.5 (12.0-16.0) g/dl Hct 41.0 (34.1-44.9) % MCV 93.6 (80.0-100.0) fL MCH 33.1 (25.0-34.0) pg MCHC 35.4 (32.0-36.0) g/dL RDW Std Deviation 43.0 (36.4-46.3) fL RDW Coeff of Emmanuelle 12.5 (11.5-14.5) % Plt Count 129 L (130-400) K/uL MPV 9.7 (9.4-12.3) fL Sodium 134 L (136-145) mmol/L Potassium 4.1 (3.5-5.1) mmol/L Chloride 97 L (98-107) mmol/L Carbon Dioxide 30 (21-32) mmol/L Anion Gap 7 (3-11) BUN 9 (6-23) mg/dl Creatinine 0.76 (0.6-1.2) mg/dl Est Cr Clr Drug Dosing 88.5 ml/min Est GFR ( Amer) 96.1 ml/min Est GFR (Non-Af Amer) 82.9 ml/min BUN/Creatinine Ratio 11.8 (10-20) Glucose 199 H (70-99(Fasting)) mg/dl POC Glucose 196 H (70-99) mg/dl Calcium 9.2 (8.5-10.1) mg/dl Total Bilirubin 0.8 (0.2-1.0) mg/dl AST 32 (13-39) U/L ALT 16 (7-52) U/L Alkaline Phosphatase 89 (34-104) U/L Total Protein 7.3 (6.0-8.3) gm/dl Albumin 3.7 (3.4-5.0) gm/dl Globulin 3.6 (2.5-4.0) gm/dl Albumin/Globulin Ratio 1.0 (0.9-2) Vitamin B12 (180-914) pg/ml Folate (>5.38) ng/ml Ur Random Creatinine mg/dl 12/18/21 12/17/21 12/17/21 Range/Units 06:47 20:21 16:40 WBC (4.8-10.8) K/ul RBC (3.93-5.22) M/uL Hgb (12.0-16.0) g/dl Hct (34.1-44.9) % MCV (80.0-100.0) fL MCH (25.0-34.0) pg MCHC (32.0-36.0) g/dL RDW Std Deviation (36.4-46.3) fL RDW Coeff of Emmanuelle (11.5-14.5) % Plt Count (130-400) K/uL MPV (9.4-12.3) fL Sodium 134 L (136-145) mmol/L Potassium 4.2 (3.5-5.1) mmol/L Chloride 99 (98-107) mmol/L Carbon Dioxide 29 (21-32) mmol/L Anion Gap 6 (3-11) BUN 10 (6-23) mg/dl Creatinine 0.81 (0.6-1.2) mg/dl Est Cr Clr Drug Dosing 83.5 ml/min Est GFR ( Amer) 89.0 ml/min Est GFR (Non-Af Amer) 76.8 ml/min BUN/Creatinine Ratio 12.3 (10-20) Glucose 225 H (70-99(Fasting)) mg/dl POC Glucose 174 H (70-99) mg/dl Calcium 8.7 (8.5-10.1) mg/dl Total Bilirubin (0.2-1.0) mg/dl AST (13-39) U/L ALT (7-52) U/L Alkaline Phosphatase (34-104) U/L Total Protein (6.0-8.3) gm/dl Albumin (3.4-5.0) gm/dl Globulin (2.5-4.0) gm/dl Albumin/Globulin Ratio (0.9-2) Vitamin B12 726 (180-914) pg/ml Folate 18.57 (>5.38) ng/ml Ur Random Creatinine mg/dl 12/17/21 12/17/21 12/17/21 Range/Units 16:38 12:36 11:44 WBC (4.8-10.8) K/ul RBC (3.93-5.22) M/uL Hgb (12.0-16.0) g/dl Hct (34.1-44.9) % MCV (80.0-100.0) fL MCH (25.0-34.0) pg MCHC (32.0-36.0) g/dL RDW Std Deviation (36.4-46.3) fL RDW Coeff of Emmanuelle (11.5-14.5) % Plt Count (130-400) K/uL MPV (9.4-12.3) fL Sodium 137 (136-145) mmol/L Potassium 4.4 (3.5-5.1) mmol/L Chloride 101 (98-107) mmol/L Carbon Dioxide 31 (21-32) mmol/L Anion Gap 5 (3-11) BUN 8 (6-23) mg/dl Creatinine 0.76 (0.6-1.2) mg/dl Est Cr Clr Drug Dosing 89.0 ml/min Est GFR ( Amer) 96.1 ml/min Est GFR (Non-Af Amer) 82.9 ml/min BUN/Creatinine Ratio 10.5 (10-20) Glucose 233 H (70-99(Fasting)) mg/dl POC Glucose 228 H 255 H (70-99) mg/dl Calcium 8.8 (8.5-10.1) mg/dl Total Bilirubin (0.2-1.0) mg/dl AST (13-39) U/L ALT (7-52) U/L Alkaline Phosphatase (34-104) U/L Total Protein (6.0-8.3) gm/dl Albumin (3.4-5.0) gm/dl Globulin (2.5-4.0) gm/dl Albumin/Globulin Ratio (0.9-2) Vitamin B12 (180-914) pg/ml Folate (>5.38) ng/ml Ur Random Creatinine mg/dl 12/17/21 12/17/21 Range/Units 10:40 10:16 WBC (4.8-10.8) K/ul RBC (3.93-5.22) M/uL Hgb (12.0-16.0) g/dl Hct (34.1-44.9) % MCV (80.0-100.0) fL MCH (25.0-34.0) pg MCHC (32.0-36.0) g/dL RDW Std Deviation (36.4-46.3) fL RDW Coeff of Emmanuelle (11.5-14.5) % Plt Count (130-400) K/uL MPV (9.4-12.3) fL Sodium 134 L (136-145) mmol/L Potassium 4.0 (3.5-5.1) mmol/L Chloride 99 (98-107) mmol/L Carbon Dioxide 29 (21-32) mmol/L Anion Gap 6 (3-11) BUN 7 (6-23) mg/dl Creatinine 0.73 (0.6-1.2) mg/dl Est Cr Clr Drug Dosing 92.7 ml/min Est GFR ( Amer) 100.9 ml/min Est GFR (Non-Af Amer) 87.0 ml/min BUN/Creatinine Ratio 9.6 L (10-20) Glucose 284 H (70-99(Fasting)) mg/dl POC Glucose (70-99) mg/dl Calcium 8.8 (8.5-10.1) mg/dl Total Bilirubin (0.2-1.0) mg/dl AST (13-39) U/L ALT (7-52) U/L Alkaline Phosphatase (34-104) U/L Total Protein (6.0-8.3) gm/dl Albumin (3.4-5.0) gm/dl Globulin (2.5-4.0) gm/dl Albumin/Globulin Ratio (0.9-2) Vitamin B12 (180-914) pg/ml Folate (>5.38) ng/ml Ur Random Creatinine 37.7 mg/dl Diagnostic Findings No new imaging. Resident Activity Tracking Resident Involvement: Resident Care Provided Care Provided: [facility]
[2021-12-18 07:39] LABS: Albumin Level 3.7 gm/dl (3.4-5.0); BUN Creatinine Ratio 11.8 (10-20); Bilirubin,Total 0.8 mg/dl (0.2-1.0); Calcium 9.2 mg/dl (8.5-10.1); Creatinine Clr Calc Pharmacy 88.5 ml/min; Est GFR (African American) 96.1 ml/min; Est GFR (Non-African American) 82.9 ml/min; Globulin 3.6 gm/dl (2.5-4.0); Potassium 4.1 mmol/L (3.5-5.1); Total Protein 7.3 gm/dl (6.0-8.3)
[2021-12-18 07:53] LABS: Hemoglobin 14.5 g/dl (12.0-16.0); Mean Corpuscular Hemoglobin 33.1 pg (25.0-34.0); Mean Corpuscular Hgb Conc 35.4 g/dL (32.0-36.0); Mean Corpuscular Volume 93.6 fL (80.0-100.0); Mean Platelet Volume 9.7 fL (9.4-12.3); Platelet Count 129 K/uL (130-400); RDW Coefficient of Variation 12.5 % (11.5-14.5); Red Blood Count 4.38 M/uL (3.93-5.22); White Blood Count 8.32 K/ul (4.8-10.8)
[2021-12-18 07:59] LABS: Folate (Folic Acid) 18.57 ng/ml (>5.38)
[2021-12-18] MEDS: PRAZOSIN HCL 1 MG CAP PO SCH (08:07)
[2021-12-18] MEDS: ENOXAPARIN INJ 40 MG/0.4 ML SYR SQ SCH (08:07)
[2021-12-18] MEDS: FOLIC ACID 1 MG TAB PO SCH (08:07)
[2021-12-18] MEDS: THIAMINE HCL 100 MG TAB PO SCH (08:07)
[2021-12-18] MEDS: PANTOprazole 40 MG TAB PO SCH (08:07)
[2021-12-18] MEDS: INSULIN ASPART PER UNIT SC SCH ×4 (09:20→21:26)
--- NOTE | 2021-12-18 11:30 | Psychiatric Consultation ---
Date of Consultation December 18, 2021 Impression / Recommendations Impression 66 yo woman with history of alcohol use disorder, depression, anxiety, PTSD, chronic pain admitted for serotonin syndrome. Diagnostically consistent with serotonin syndrome and alcohol use disorder. Agree with serotonin syndrome and alcohol withdrawal management per hospitalist team, continue to hold all psychiatric medications. Once her serotonin syndrome improves ok to restart psychiatric medications per below. Recommending avoiding or limiting any scripts for Klonopin on discharge given risks of fatal respiratory depression in combination with alcohol use. Discussed her alcohol use, she is motivated to quit drinking after discharge, declines further outpatient supports at this time to help with this nor MAT such as naltrexone. If she becomes interested in outpatient dual diagnosis therapy please let the psych liason know and we can discuss outpatient referral options. Acute risk of self-harm is low as she denies SI, has many reasons to live including new great grandson and future-oriented and with outpatient providers with whom she has good rapport. (1) Serotonin syndrome: (2) Alcohol use disorder, moderate, dependence: (3) PTSD (post-traumatic stress disorder): (4) Depression: (5) Anxiety: Plan -Once serotonin syndrome has improved would restart Cymbalta 20mg daily and option to restart trazodone 100mg qhs prn, further titration can occur when she sees her outpatient psychiatric provider -Discontinue Effexor and do not restart. Recommend discontinuation of Klonopin or if needed for panic attacks, maximum of 5 pills per month, and only if she is not using alcohol. -Ok to continue prazosin 2mg qd, may want to consider switching to qhs but she can discuss with her outpt psych provider -Agree with AW for alcohol withdrawal Psych History Identifying Data 66 yo woman with a history of depression, anxiety, PTSD, and chronic pain admitted medically for serotonin syndrome. Psychiatry consulted for medication recommendations. Chief Complaint "I'd never felt like that in my life, I knew I was really sick". History of Present Illness Mira recounts her abrupt onset of symptoms of malaise including vision changes, sweatiness, restlessness and overall weakness which lead her to come to the hospital. She had not made any recent increases or changes in psychiatric medication in the days prior nor added any new supplements or had other changes to her health. She had been feeling "not great" in recent weeks after running out of her tizanidine for chronic pain because her insurance changed and she could no longer see her [facility] PCP. Her outpatient psychiatric provider, Lynnette Gonsalez, through [facility] had been slowly cross-tapering her from Effexor to Cymbalta and she did self-increase her Effexor dose from 75mg qd to 112.5 mg qd after experiencing withdrawal side effects from running out of the tizanidine and wondering if the side effects were instead due to Effexor withdrawal. For psych meds had been taking Effexor ER 112.5, Cymbalta 30mg qd, Trazodone 200mg qhs, Klonopin 0.5 mg qd prn (took it most days) as well as prazosin. She had also been drinking alcohol in recent weeks, with increased use, to self- medicate for depression and pain and insomnia drinking about 6 beers per day, usually all in the evening. She has struggled with alcohol use in the past but also reports history of long period of sobriety for about 14.5 years in the past and is motivated to be sober again. Psych ROS notable for depression but denies SI, hx PTSD and multiple significant losses in her life, no known hx artem. Past Psychiatric History Outpatient Services: [facility] History of Previous Suicide Attempt: No Allergies Allergy/AdvReac Type Severity Reaction Status Date / Time Sulfa (Sulfonamide Allergy Unknown Verified 10/01/20 11:27 Antibiotics) Home Medications Medication Instructions Recorded Confirmed Type clonazepam 0.5 mg tablet 0.5 mg PO DAILY PRN Anxiety 12/12/19 10/01/20 History omeprazole 20 mg capsule,delayed 20 mg PO DAILY 12/12/19 10/01/20 History release prazosin 2 mg capsule 2 mg PO DAILY 12/12/19 10/01/20 History tizanidine 4 mg tablet 4 mg PO DAILY 12/12/19 10/01/20 History trazodone 100 mg tablet 200 mg PO HS 12/12/19 10/01/20 History venlafaxine 150 mg 150 mg PO QAM 12/12/19 10/01/20 History capsule,extended release 24 hr Family History first by suicide Substance Abuse History see HPI-alcohol use Personal History Living Arrangements: Home Childhood: Had her first child at age 17, lived in [place]. Multiple losses in her life. Marital Status: Number Of Children: 4, 1 of her sons , 1 grandson Beliefs That Will Affect Care: None Patient History Medical History (Updated 12/18/21 @ 12:21 by Gabriela Ortiz MD) Anxiety CKD (chronic kidney disease), stage III Depression Diet-controlled diabetes mellitus Dyslipidemia PTSD (post-traumatic stress disorder) Surgical History H/O arthroscopy of shoulder H/O right knee surgery H/O thumb surgery History of partial hysterectomy Family History Other Diabetes Heart disease Social History Smoking Status: Former smoker Second Hand Exposure: No; Do You Dip or Chew Tobacco: No; Tobacco Cessation Education Requested by Patient: No Hx Alcohol Use: Yes Alcohol type: beer Hx Substance Use: No Preferred Language: Nicaraguan Communication Ability: Effective Ct Technologist Required: No Beliefs That Will Affect Care: None Current Living Situation: Significant Other Current Living Situation Comment: Lives with boyfriend and emotional support dog Other Information That Helps Us Care for You: No Feels Safe at Home: Yes Safety Concerns: Feels Safe At This Time Assistive Devices: Bedside Commode, Cane, Denture - Upper, Denture - Lower and Glasses Physical Exam Psychiatric: Orientation: alert and oriented x 3 Apperance: appropriately dressed and appropriately groomed Eye Contact: good eye contact Motor Behavior: steady gait and station and no abnormal motor movements Speech: normal rate/rhythm/volume of speech Affect: + anxious affect Mood: + depressed mood and + anxious mood Thought Process: goal directed thought process Thought Content: reality based without delusions Suicidal Thoughts: denies suicidal thoughts Homicidal Thoughts: denies homicidal thoughts Hallucinations: no auditory hallucinations and no visual hallucinations Cognition: recent memory grossly intact, remote memory grossly intact, attention grossly intact and language grossly intact Estimated Intelligence: consistent with education level Insight: + fair insight Judgement: + limited judgement Vital Signs (Past 24 Hours): Last Vital Signs Temp 36.6 C 12/18/21 07:46 Pulse 103 H 12/18/21 07:46 Resp 16 12/18/21 07:46 BP 170/114 H 12/18/21 07:46 Pulse Ox 95 12/18/21 07:46 O2 Del Method 12/18/21 07:46 O2 Flow Rate 2 12/18/21 06:39 Review of Systems All systems reviewed & are unremarkable except as noted in HPI & below (anxiety, tremors, diaphoresis) Results & Data (PSY) Medications Administered Acetaminophen (Acetaminophen 325 Mg Tab) 650 mg PO Q6H PRN PRN Reason: Pain or Fever Stop: 01/16/22 05:36 Last Admin: 12/18/21 08:08 Dose: 650 mg Documented By: Admin: 12/18/21 00:15 Dose: 650 mg Documented By: JUNG Enoxaparin Sodium (Enoxaparin Inj 40 Mg/0.4 Ml Syr) 40 mg SQ Q24H [facility] Stop: 01/16/22 08:59 Last Admin: 12/18/21 08:07 Dose: 40 mg Documented By: Admin: 12/17/21 08:48 Dose: 40 mg Documented By: ANTONIETA Folic Acid (Folic Acid 1 Mg Tab) [facility] [place] Stop: 01/16/22 08:59 Last Admin: 12/18/21 08:07 Dose: 1 mg Documented By: Admin: 12/17/21 08:05 Dose: 1 mg Documented By: Lorazepam 1 mg/ Syringe 1 mls @ 2 mls/min IV UD PRN; Protocol PRN Reason: EtOH Withdrawal AWSS Score 6,7 Stop: 01/16/22 05:36 Last Admin: 12/18/21 08:08 Dose: 2 mls/min Documented By: Admin: 12/18/21 00:15 Dose: 2 mls/min Documented By: Admin: 12/17/21 10:40 Dose: 2 mls/min Documented By: Admin: 12/17/21 08:49 Dose: 2 mls/min Documented By: Lorazepam 2 mg/ Syringe 2 mls @ 2 mls/min IV UD PRN; Protocol PRN Reason: EtOH Withdrawal AWSS Score 8,9 Stop: 01/16/22 05:36 Last Admin: 12/17/21 18:02 Dose: 2 mls/min Documented By: Insulin Aspart (Insulin Aspart Per Unit) 0 units SC [facility] Stop: 01/16/22 07:29 Last Admin: 12/18/21 09:20 Dose: 3 units Documented By: RACHELL Co-signed By: RRR Admin: 12/17/21 21:26 Dose: 1 units Documented By: JUNG Co-signed By: KORTNEY Admin: 12/17/21 17:39 Dose: 2 units Documented By: ANTONIETA Co-signed By: JOSE DE JESUS Admin: 12/17/21 12:50 Dose: 4 units Documented By: ANTONIETA Co-signed By: JOSE DE JESUS Admin: 12/17/21 08:50 Dose: 3 units Documented By: ANTONIETA Co-signed By: THEO Ondansetron HCl (Ondansetron Inj 2 Mg/Ml 2 Ml Vial) 4 mg IV Q6H PRN PRN Reason: Nausea Stop: 01/16/22 05:36 Last Admin: 12/17/21 23:49 Dose: 4 mg Documented By: JUNG Pantoprazole Sodium (Pantoprazole 40 Mg Tab) 40 mg PO DAILY [facility] Stop: 01/16/22 08:59 Last Admin: 12/18/21 08:07 Dose: 40 mg Documented By: Admin: 12/17/21 08:05 Dose: 40 mg Documented By: ANTONIETA Prazosin HCl (Prazosin Hcl 1 Mg Cap) 2 mg PO DAILY CARMELLA Stop: 01/16/22 08:59 Last Admin: 12/18/21 08:07 Dose: 2 mg Documented By: Admin: 12/17/21 08:48 Dose: 2 mg Documented By: ANTONIETA Thiamine HCl (Thiamine Hcl 100 Mg Tab) 100 mg PO QAM CARMELLA Stop: 01/16/22 08:59 Last Admin: 12/18/21 08:07 Dose: 100 mg Documented By: Admin: 12/17/21 08:05 Dose: 100 mg Documented By: ANTONIETA Coding Level of Care Code 71110 Inpt Consult Level 3 Diagnoses Serotonin syndrome G25.79 Alcohol use disorder, moderate, dependence F10.20 PTSD (post-traumatic stress disorder) F43.10 Depression F32.9 Anxiety F41.9
[2021-12-18] MEDS ORDERED: LOPERAMIDE HCL 2 MG CAP PO STA ×2 (14:02→21:49)
[2021-12-18] MEDS: ONDANSETRON INJ 2 MG/ML 2 ML VIAL IV PRN (14:20)
[2021-12-18] MEDS: LORazepam 2 MG in SYRINGE 1 ML IV PRN (21:52)
[2021-12-18] MEDS ORDERED: LOPERAMIDE HCL 2 MG CAP PO ONE (23:57)
[2021-12-19] MEDS: LORazepam 1 MG in SYRINGE 0.5 ML IV PRN ×3 (01:47→20:39)
--- NOTE | 2021-12-19 06:47 | Hospitalist Progress Note ---
Date of Service December 19, 2021 Assessment & Plan (1) Serotonin syndrome: (2) Hyponatremia: (3) Severe alcohol use disorder: (4) Diet-controlled diabetes mellitus: (5) Lumbar paraspinal muscle spasm: (6) Depression: (7) Anxiety: (8) PTSD (post-traumatic stress disorder): Plan Mira Ayala is a 66 y/o female with PMHx significant for T2DM (diet- controlled), dyslipidemia, depression, anxiety, PTSD and alcohol use disorder who presented to [facility] ED on 12/17 for a variety of complaints, including increased anxiety, restlessness, muscle tremors, occasional sweats, generalized tingling/numbness, and occasional diarrhea who is clinically improving. Patient was taking Tizanidine 8-12mg daily for "years" but ran out because she lost her PCP and does not have another one yet. Of note the patient has also been in the process of transitioning from Venlafaxine to Duloxetine. She sees a Psychiatrist for depression/anxiety and PTSD. Three months ago she was told to decrease Venlafaxine from 150mg to 112.5mg and to start taking Duloxetine 30mg. However she decreased Venlafaxine to 75mg at that time. When she started to have the above-mentioned symptoms several weeks ago, she increased her Venlafaxine to the prescribed 112.5mg. She has been taking Duloxetine at this time and is also taking Trazodone 200mg nightly. #Serotonin Syndrome Patient taking trazodone, venlafaxine, and duloxetine at home. She self titrated up on the venlafaxine when she started experiencing symptoms of anxiety, tremor, and restlessness. This did not improve symptoms. They continued to worsen. She is at risk of serotonin syndrome due to her med list. Classic symptoms including hypertension, tachycardia, hallucinations, anxiety/agitation, restlessness, muscle tremors, diaphoresis, diarrhea. Hypertensive/tachycardic in ED with hyperreflexia on exam. UDS - BAL 71.5 otherwise negative Patient was seen by Psych - once serotonin syndrome has improved okay to restart Cymbalta and trazodone. Discontinued Effexor. Either discontinue or only provide a few tabs of klonopin (~5) on discharge due to the risks with alcohol. [] Restarted duloxetine 20 mg [] Restart Trazodone this evening [] continue with further Ativan IV doses per AWSS protocol (see below) [] PRN Tylenol for fever [] Psychiatry on board - appreciate recs Hypertension/Tachycardia Patient is hypertensive and tachycardic likely in the setting of serotonin syndrome, alcohol withdrawal, and anxiety. Consider cyproheptadine vs propranolol if BP/HR/other symptoms do not improve with Ativan [] consider Cyproheptadine vs propranolol if BP/HR and other symptoms do not improve with Ativan #Severe Alcohol Use Disorder 72-144 ounces of beer per day - last drink en route to the hospital (patient's granddaughter drove her here). BAL 71.5 on presentation. Patient has had a difficult life and has a lot of unpacked trauma. She notes that she does use alcohol to self medicate. We had a lengthy discussion about alcohol cessation. She is contemplative at this time, but not ready for action. Will continue to discuss during her hospital course. Per psych, patient agreed to stop drinking during their discussion yesterday. Gloria ary offered resources and options such as outpatient dual diagnosis therapy at [facility]. She stated that she did not need additional support and had done it before on her own. Her partner who she lives with drinks and smokes marijuana. [] On AWSS protocol with Ativan IV, as stated above [] Giving thiamine 100mg PO daily and Folic acid 1mg PO daily #Leukocytosis Patient may be hemoconcentrated. Encourage PO intake. Cr is WNL. Consider IVF if Cr rises. [] encourage po intake #Depression; Anxiety; PTSD [] Restarted Duloxetine [] Restart Trazodone this afternoon [] Discontinue Venlafaxine as stated above [] avoid home Clonazepam in the setting of alcohol use [] can continue home Prazosin [] Psychiatry recs as stated above #Hyponatremia: resolved Given patient's significant chronic beer use (72-144 ounces per day), I suspect that the Na 127 on admission (129 corrected for hyperglycemia) is chronic due to beer potomania. Suspect that symptoms are largely due to serotonin syndrome. Na 135 (137 corrected for hyperglycemia). #T2DM HbA1c 8.3. Not on medications. BSG 256 on presentation. Sugars continue to be high. [] SSI while hospitalized Diabetes Education Recs - patient provided with blood glucose monitor RECOMMENDATIONS AT DISCHARGE: 1.) Lifestyle changes/wt loss. 2.) SMBG 1x/day- change times checking from day to day. 3.) Could consider restarting Metformin if pt agreeable to abstain from alcohol otherwise would consider an alternative oral agent. PRESCRIPTIONS NEEDED: 1.) OneTouch Verio Test Strips to check 1x/day. 2.) OneTouch Delica Lancets 33 gauge to check 1x/day. Peripheral Neuropathy Symptoms present and progressive x several months. Suspect due to alcohol abuse and diabetes. B12 726. Folate 18.57. Lumbar Paraspinal Muscle Spasms Chronic, after spinal fusion surgery several years ago. Was taking Tizanidine 8- 12mg daily for years but ran out ~2 weeks ago. Suspect that muscle tremors/spasms are largely due to serotonin syndrome rather than Tizanidine withdrawal, particularly because her symptoms are worsening despite being off of Tizanidine. [] hold home Tizanidine CKD Chart indicates CKD III. This seems unlikely as Cr is 0.76. Follow up outpatient. Dyslipidemia Follow up outpatient FEN/GI: DM2 diet DVT Prophylaxis: Lovenox Code Status: full code Disposition: med/tele Admission and Anticipated Discharge Date Admission Date: December 17, 2021 Supervising Physician Co-Signing Physician Notes Attending attestation Pt seen and examined in concert with Dr. Schaeffer. In agreement with the documented findings as noted in the resident documentation with any exceptions or additions as noted here. 66 year old female with history of AUD, depression, anxiety, PTSD and diabetes admitted with hyponatremia, serotonin syndrome, and alcohol intoxication. Significant improvement in tremulousness and anxiety compared to yesterday. Still commits to d/c etOH use without assistance after discussion. On examination, S1/S2 nl RRR no MCG. CTAB. Abd NT/ND BS+ve. Minimal to no tremor apparent. VS and nursing notes reviewed. Serotonin syndrome - psychiatric consult - restart duloxetine 20mg this AM, trazodone 100mg tonight if tolerated. Continue at discharge to primary management Alcohol use disorder w/ withdrawal - AWSS per protocol - Again, strongly encourage use of supporting services for cessation to avoid similar. DMII - reviewed need for improved glucose control as patient re-engages weight loss and etOH cessation. Will restart metformin on d/c. Adjust ISS today. Else see resident documentation as noted. Subjective Ms. Ayala states that she is feeling a little better today. She reports having some nausea after eating and did throw up yesterday. Patient getting Zofran while I was in the room. She would like to restart her home meds and get discharged as timely as possible. Review of Systems Review of Systems: See HPI/Subjective Physical Exam Physical Exam: General: A&Ox3. NAD. Cooperative. More awake appearing. HEENT: Atraumatic, normocephalic. Pulm: CTAB A&P. -wheezes, -rales, -rhonchi. Symmetrical chest rise. No increase work of breathing. No respiratory distress. Cardiac: RRR, -mrg. Radial pulses intact and symmetrical. Abdominal: soft, non-tender, non-distended Neurologic: CN's II-XI intact bilaterally and awake Speech / Cognition: normal speech Motor/Sensory: + tremor (slight, decreases with distraction) and + sensory deficit (decreased sensation throughout feet bilaterally) Results & Data Results & Data ([facility]) Vital Signs (Past 12 Hours) Vital Signs Temp Pulse Pulse Resp BP BP Pulse Ox 12/19/21 03:38 36.9 C 103 H 18 161/83 H 97 12/18/21 22:15 98 H 12/19/21 01:18 36.8 C 106 H 18 180/125 H 96 12/18/21 22:39 36.9 C 99 H 18 170/91 H 96 12/18/21 23:23 36.6 C 105 H 20 193/120 H 188/118 H 93 12/18/21 19:46 36.8 C 99 H 20 179/97 H 197/118 H 95 O2 Del Method O2 Flow Rate 12/19/21 03:38 Nasal Cannula 2 12/18/21 22:15 12/19/21 01:18 Nasal Cannula 2 12/18/21 22:39 Nasal Cannula 2 12/18/21 23:23 Nasal Cannula 2 12/18/21 19:46 Nasal Cannula 2 Laboratory Results 12/19/21 12/19/21 12/19/21 Range/Units 07:45 06:53 06:53 WBC 10.87 H (4.8-10.8) K/ul RBC 4.82 (3.93-5.22) M/uL Hgb 15.5 (12.0-16.0) g/dl Hct 44.5 (34.1-44.9) % MCV 92.3 (80.0-100.0) fL MCH 32.2 (25.0-34.0) pg MCHC 34.8 (32.0-36.0) g/dL RDW Std Deviation 41.9 (36.4-46.3) fL RDW Coeff of Emmanuelle 12.5 (11.5-14.5) % Plt Count 147 (130-400) K/uL MPV 9.7 (9.4-12.3) fL Sodium 135 L (136-145) mmol/L Potassium 4.0 (3.5-5.1) mmol/L Chloride 95 L (98-107) mmol/L Carbon Dioxide 34 H (21-32) mmol/L Anion Gap 6 (3-11) BUN 9 (6-23) mg/dl Creatinine 0.84 (0.6-1.2) mg/dl Est Cr Clr Drug Dosing 79.6 ml/min Est GFR ( Amer) 85.1 ml/min Est GFR (Non-Af Amer) 73.4 ml/min BUN/Creatinine Ratio 10.7 (10-20) Glucose 204 H (70-99(Fasting)) mg/dl POC Glucose 200 H (70-99) mg/dl Calcium 9.6 (8.5-10.1) mg/dl Folate (>5.38) ng/ml 12/19/21 12/18/21 12/18/21 Range/Units 06:53 20:27 16:45 WBC (4.8-10.8) K/ul RBC (3.93-5.22) M/uL Hgb (12.0-16.0) g/dl Hct (34.1-44.9) % MCV (80.0-100.0) fL MCH (25.0-34.0) pg MCHC (32.0-36.0) g/dL RDW Std Deviation (36.4-46.3) fL RDW Coeff of Emmanuelle (11.5-14.5) % Plt Count (130-400) K/uL MPV (9.4-12.3) fL Sodium (136-145) mmol/L Potassium (3.5-5.1) mmol/L Chloride (98-107) mmol/L Carbon Dioxide (21-32) mmol/L Anion Gap (3-11) BUN (6-23) mg/dl Creatinine (0.6-1.2) mg/dl Est Cr Clr Drug Dosing ml/min Est GFR ( Amer) ml/min Est GFR (Non-Af Amer) ml/min BUN/Creatinine Ratio (10-20) Glucose (70-99(Fasting)) mg/dl POC Glucose 171 H 212 H (70-99) mg/dl Calcium (8.5-10.1) mg/dl Folate 20.90 (>5.38) ng/ml 12/18/21 Range/Units 11:38 WBC (4.8-10.8) K/ul RBC (3.93-5.22) M/uL Hgb (12.0-16.0) g/dl Hct (34.1-44.9) % MCV (80.0-100.0) fL MCH (25.0-34.0) pg MCHC (32.0-36.0) g/dL RDW Std Deviation (36.4-46.3) fL RDW Coeff of Emmanuelle (11.5-14.5) % Plt Count (130-400) K/uL MPV (9.4-12.3) fL Sodium (136-145) mmol/L Potassium (3.5-5.1) mmol/L Chloride (98-107) mmol/L Carbon Dioxide (21-32) mmol/L Anion Gap (3-11) BUN (6-23) mg/dl Creatinine (0.6-1.2) mg/dl Est Cr Clr Drug Dosing ml/min Est GFR ( Amer) ml/min Est GFR (Non-Af Amer) ml/min BUN/Creatinine Ratio (10-20) Glucose (70-99(Fasting)) mg/dl POC Glucose 235 H (70-99) mg/dl Calcium (8.5-10.1) mg/dl Folate (>5.38) ng/ml Diagnostic Findings No new imaging. Resident Activity Tracking Resident Involvement: Resident Care Provided Care Provided: [facility]
[2021-12-19 07:30] LABS: Hematocrit (blood only) 44.5 % (34.1-44.9); Hemoglobin 15.5 g/dl (12.0-16.0); Mean Corpuscular Hemoglobin 32.2 pg (25.0-34.0); Mean Corpuscular Hgb Conc 34.8 g/dL (32.0-36.0); Mean Corpuscular Volume 92.3 fL (80.0-100.0); Mean Platelet Volume 9.7 fL (9.4-12.3); Platelet Count 147 K/uL (130-400); RDW Coefficient of Variation 12.5 % (11.5-14.5); RDW Standard Deviation 41.9 fL (36.4-46.3); Red Blood Count 4.82 M/uL (3.93-5.22); White Blood Count 10.87 K/ul (4.8-10.8)
[2021-12-19 07:53] LABS: BUN Creatinine Ratio 10.7 (10-20); Calcium 9.6 mg/dl (8.5-10.1); Creatinine Clr Calc Pharmacy 79.6 ml/min; Est GFR (African American) 85.1 ml/min; Est GFR (Non-African American) 73.4 ml/min
[2021-12-19] MEDS: THIAMINE HCL 100 MG TAB PO SCH (08:06)
[2021-12-19] MEDS: PANTOprazole 40 MG TAB PO SCH (08:06)
[2021-12-19] MEDS: PRAZOSIN HCL 1 MG CAP PO SCH (08:06)
[2021-12-19] MEDS: FOLIC ACID 1 MG TAB PO SCH (08:06)
[2021-12-19] MEDS: ENOXAPARIN INJ 40 MG/0.4 ML SYR SQ SCH (08:08)
[2021-12-19] MEDS: INSULIN ASPART PER UNIT SC SCH ×4 (08:09→20:39)
[2021-12-19] MEDS: ACETAMINOPHEN 325 MG TAB PO PRN (08:31)
[2021-12-19] MEDS: ONDANSETRON INJ 2 MG/ML 2 ML VIAL IV PRN (08:44)
[2021-12-19] MEDS ORDERED: LOPERAMIDE HCL 2 MG CAP PO STA (09:31)
[2021-12-19] MEDS: DULoxetine HCL 20 MG CAP PO SCH (14:07)
[2021-12-19] MEDS ORDERED: traZODone HCL 100 MG TAB PO ONE (20:44)
[2021-12-20 07:21] LABS: Hematocrit (blood only) 43.9 % (34.1-44.9); Hemoglobin 15.3 g/dl (12.0-16.0); Mean Corpuscular Hemoglobin 32.7 pg (25.0-34.0); Mean Corpuscular Hgb Conc 34.9 g/dL (32.0-36.0); Mean Corpuscular Volume 93.8 fL (80.0-100.0); Mean Platelet Volume 9.9 fL (9.4-12.3); Platelet Count 145 K/uL (130-400); RDW Coefficient of Variation 12.4 % (11.5-14.5); RDW Standard Deviation 42.5 fL (36.4-46.3); Red Blood Count 4.68 M/uL (3.93-5.22); White Blood Count 9.12 K/ul (4.8-10.8)
[2021-12-20 07:38] LABS: BUN Creatinine Ratio 15.4 (10-20); Calcium 9.6 mg/dl (8.5-10.1); Creatinine Clr Calc Pharmacy 83.9 ml/min; Est GFR (African American) 93.1 ml/min; Est GFR (Non-African American) 80.3 ml/min; Potassium 4.1 mmol/L (3.5-5.1)
--- NOTE | 2021-12-20 08:12 | Hospitalist Progress Note ---
Date of Service December 20, 2021 Assessment & Plan (1) Serotonin syndrome: (2) Hyponatremia: (3) Severe alcohol use disorder: (4) Diet-controlled diabetes mellitus: (5) Lumbar paraspinal muscle spasm: (6) Depression: (7) Anxiety: (8) PTSD (post-traumatic stress disorder): Plan Mira Ayala is a 66 y/o female with PMHx significant for T2DM (diet- controlled), dyslipidemia, depression, anxiety, PTSD and alcohol use disorder who presented to [facility] ED on 12/17 for a variety of complaints, including increased anxiety, restlessness, muscle tremors, occasional sweats, generalized tingling/numbness, and occasional diarrhea who is clinically improving. Patient was taking Tizanidine 8-12mg daily for "years" but ran out because she lost her PCP and does not have another one yet. Of note the patient has also been in the process of transitioning from Venlafaxine to Duloxetine. She sees a Psychiatrist for depression/anxiety and PTSD. Three months ago she was told to decrease Venlafaxine from 150mg to 112.5mg and to start taking Duloxetine 30mg. However she decreased Venlafaxine to 75mg at that time. When she started to have the above-mentioned symptoms several weeks ago, she increased her Venlafaxine to the prescribed 112.5mg. She has been taking Duloxetine at this time and is also taking Trazodone 200mg nightly. #Serotonin Syndrome Patient taking trazodone, venlafaxine, and duloxetine at home. She self titrated up on the venlafaxine when she started experiencing symptoms of anxiety, tremor, and restlessness. This did not improve symptoms. They continued to worsen. She is at risk of serotonin syndrome due to her med list. Classic symptoms including hypertension, tachycardia, hallucinations, anxiety/agitation, restlessness, muscle tremors, diaphoresis, diarrhea. Hypertensive/tachycardic in ED with hyperreflexia on exam. UDS - BAL 71.5 otherwise negative Patient was seen by Psych - once serotonin syndrome has improved okay to restart Cymbalta and trazodone. Discontinued Effexor. Either discontinue or only provide a few tabs of klonopin (~5) on discharge due to the risks with alcohol. [] Restarted duloxetine 20 mg [] Restart Trazodone this evening [] continue with further Ativan IV doses per AWSS protocol (see below) [] PRN Tylenol for fever [] Psychiatry on board - appreciate recs Hypertension/Tachycardia Patient is hypertensive and tachycardic likely in the setting of serotonin syndrome, alcohol withdrawal, and anxiety. Consider cyproheptadine vs propranolol if BP/HR/other symptoms do not improve with Ativan The patient had a round of atrial tachycardia to the 180s. When I reevaluated her she was around 120s. We ordered an EKG which showed sinus tachycardia 114. Side bar cards [] consider Cyproheptadine vs propranolol if BP/HR and other symptoms do not improve with Ativan #Severe Alcohol Use Disorder 72-144 ounces of beer per day - last drink en route to the hospital (patient's granddaughter drove her here). BAL 71.5 on presentation. Patient has had a difficult life and has a lot of unpacked trauma. She notes that she does use alcohol to self medicate. We had a lengthy discussion about alcohol cessation. She is contemplative at this time, but not ready for action. Will continue to discuss during her hospital course. Per psych, patient agreed to stop drinking during their discussion yesterday. They offered resources and options such as outpatient dual diagnosis therapy at [facility]. She stated that she did not need additional support and had done it before on her own. Her partner who she lives with drinks and smokes marijuana. [] On AWSS protocol with Ativan IV, as stated above [] Giving thiamine 100mg PO daily and Folic acid 1mg PO daily #Leukocytosis Patient may be hemoconcentrated. Encourage PO intake. Cr is WNL. Consider IVF if Cr rises. [] encourage po intake #Depression; Anxiety; PTSD Continue Duloxetine 20 mg and trazodone [] Restarted Duloxetine [] Restart Trazodone this afternoon [] Discontinue Venlafaxine as stated above [] avoid home Clonazepam in the setting of alcohol use [] can continue home Prazosin [] Psychiatry recs as stated above #Hyponatremia: resolved Given patient's significant chronic beer use (72-144 ounces per day), I suspect that the Na 127 on admission (129 corrected for hyperglycemia) is chronic due to beer potomania. Suspect that symptoms are largely due to serotonin syndrome. Na 135 (137 corrected for hyperglycemia). #T2DM HbA1c 8.3. Not on medications. BSG 256 on presentation. Sugars continue to be high. [] SSI while hospitalized Diabetes Education Recs - patient provided with blood glucose monitor RECOMMENDATIONS AT DISCHARGE: 1.) Lifestyle changes/wt loss. 2.) SMBG 1x/day- change times checking from day to day. 3.) Could consider restarting Metformin if pt agreeable to abstain from alcohol otherwise would consider an alternative oral agent. PRESCRIPTIONS NEEDED: 1.) OneTouch Verio Test Strips to check 1x/day. 2.) OneTouch Delica Lancets 33 gauge to check 1x/day. Peripheral Neuropathy Symptoms present and progressive x several months. Suspect due to alcohol abuse and diabetes. B12 726. Folate 18.57. Lumbar Paraspinal Muscle Spasms Chronic, after spinal fusion surgery several years ago. Was taking Tizanidine 8- 12mg daily for years but ran out ~2 weeks ago. Suspect that muscle tremors/spasms are largely due to serotonin syndrome rather than Tizanidine withdrawal, particularly because her symptoms are worsening despite being off of Tizanidine. [] hold home Tizanidine CKD Chart indicates CKD III. This seems unlikely as Cr is 0.76. Follow up outpatient. Dyslipidemia Follow up outpatient FEN/GI: DM2 diet DVT Prophylaxis: Lovenox Code Status: full code Disposition: med/tele Admission and Anticipated Discharge Date Admission Date: December 17, 2021 Subjective The patient notes that she feels anxious and tremulous. She did not qualify for any ativan per AWSS protocol at that time. When I saw her later in the morning she was doing well. Review of Systems Review of Systems: See HPI/Subjective Physical Exam Physical Exam: General: A&Ox3. NAD. Cooperative. More awake appearing. HEENT: Atraumatic, normocephalic. Pulm: CTAB A&P. -wheezes, -rales, -rhonchi. Symmetrical chest rise. No increase work of breathing. No respiratory distress. Cardiac: RRR, -mrg. Radial pulses intact and symmetrical. Abdominal: soft, non-tender, non-distended Neurologic: CN's II-XI intact bilaterally and awake Speech / Cognition: normal speech Motor/Sensory: + tremor (slight, decreases with distraction) and + sensory deficit (decreased sensation throughout feet bilaterally) Results & Data Results & [facility] ([facility]) Vital Signs (Past 12 Hours) Vital Signs Temp Pulse Pulse Resp BP Pulse Ox O2 Del Method 12/20/21 07:14 98 H 12/20/21 06:07 36.7 C 100 H 18 170/94 H 93 Room Air 12/20/21 03:23 36.9 C 99 H 18 160/82 H 92 Room Air 12/19/21 22:56 36.8 C 99 H 16 138/86 91 Room Air 12/19/21 22:46 104 H 12/19/21 21:52 Room Air 12/19/21 20:24 36.5 C 96 H 18 171/93 H Laboratory Results 12/20/21 12/20/21 12/20/21 Range/Units 07:53 05:53 05:53 WBC 9.12 (4.8-10.8) K/ul RBC 4.68 (3.93-5.22) M/uL Hgb 15.3 (12.0-16.0) g/dl Hct 43.9 (34.1-44.9) % MCV 93.8 (80.0-100.0) fL MCH 32.7 (25.0-34.0) pg MCHC 34.9 (32.0-36.0) g/dL RDW Std Deviation 42.5 (36.4-46.3) fL RDW Coeff of Emmanuelle 12.4 (11.5-14.5) % Plt Count 145 (130-400) K/uL MPV 9.9 (9.4-12.3) fL Sodium 134 L (136-145) mmol/L Potassium 4.1 (3.5-5.1) mmol/L Chloride 96 L (98-107) mmol/L Carbon Dioxide 30 (21-32) mmol/L Anion Gap 8 (3-11) BUN 12 (6-23) mg/dl Creatinine 0.78 (0.6-1.2) mg/dl Est Cr Clr Drug Dosing 83.9 ml/min Est GFR ( Amer) 93.1 ml/min Est GFR (Non-Af Amer) 80.3 ml/min BUN/Creatinine Ratio 15.4 (10-20) Glucose 212 H (70-99(Fasting)) mg/dl POC Glucose 203 H (70-99) mg/dl Calcium 9.6 (8.5-10.1) mg/dl Folate (>5.38) ng/ml 12/19/21 12/19/21 12/19/21 Range/Units 20:29 16:55 11:46 WBC (4.8-10.8) K/ul RBC (3.93-5.22) M/uL Hgb (12.0-16.0) g/dl Hct (34.1-44.9) % MCV (80.0-100.0) fL MCH (25.0-34.0) pg MCHC (32.0-36.0) g/dL RDW Std Deviation (36.4-46.3) fL RDW Coeff of Emmanuelle (11.5-14.5) % Plt Count (130-400) K/uL MPV (9.4-12.3) fL Sodium (136-145) mmol/L Potassium (3.5-5.1) mmol/L Chloride (98-107) mmol/L Carbon Dioxide (21-32) mmol/L Anion Gap (3-11) BUN (6-23) mg/dl Creatinine (0.6-1.2) mg/dl Est Cr Clr Drug Dosing ml/min Est GFR ( Amer) ml/min Est GFR (Non-Af Amer) ml/min BUN/Creatinine Ratio (10-20) Glucose (70-99(Fasting)) mg/dl POC Glucose 224 H 199 H 203 H (70-99) mg/dl Calcium (8.5-10.1) mg/dl Folate (>5.38) ng/ml 12/19/21 Range/Units 06:53 WBC (4.8-10.8) K/ul RBC (3.93-5.22) M/uL Hgb (12.0-16.0) g/dl Hct (34.1-44.9) % MCV (80.0-100.0) fL MCH (25.0-34.0) pg MCHC (32.0-36.0) g/dL RDW Std Deviation (36.4-46.3) fL RDW Coeff of Emmanuelle (11.5-14.5) % Plt Count (130-400) K/uL MPV (9.4-12.3) fL Sodium (136-145) mmol/L Potassium (3.5-5.1) mmol/L Chloride (98-107) mmol/L Carbon Dioxide (21-32) mmol/L Anion Gap (3-11) BUN (6-23) mg/dl Creatinine (0.6-1.2) mg/dl Est Cr Clr Drug Dosing ml/min Est GFR ( Amer) ml/min Est GFR (Non-Af Amer) ml/min BUN/Creatinine Ratio (10-20) Glucose (70-99(Fasting)) mg/dl POC Glucose (70-99) mg/dl Calcium (8.5-10.1) mg/dl Folate 20.90 (>5.38) ng/ml Diagnostic Findings EKG 12/20: sinus tachy
[2021-12-20] MEDS: FOLIC ACID 1 MG TAB PO SCH (08:27)
[2021-12-20] MEDS: PRAZOSIN HCL 1 MG CAP PO SCH (08:27)
[2021-12-20] MEDS: THIAMINE HCL 100 MG TAB PO SCH (08:27)
[2021-12-20] MEDS: PANTOprazole 40 MG TAB PO SCH (08:28)
[2021-12-20] MEDS: DULoxetine HCL 20 MG CAP PO SCH (08:28)
[2021-12-20] MEDS: ENOXAPARIN INJ 40 MG/0.4 ML SYR SQ SCH (08:28)
[2021-12-20] MEDS: INSULIN ASPART PER UNIT SC SCH ×3 (08:35→17:07)
[2021-12-20] MEDS ORDERED: LOPERAMIDE HCL 2 MG CAP PO ONE (12:57)
--- NOTE | 2021-12-20 16:34 | Discharge Summary ---
Date of Service December 20, 2021 Admission HPI Per Admitting Provider Mira Ayala is a 66yo female with PMHx significant for T2DM (diet- controlled), CKD (unknown baseline Cr), dyslipidemia, depression, anxiety, PTSD and alcohol use disorder who presented to [facility] ED on 12/17 for a variety of complaints, including increased anxiety, restlessness, muscle tremors, occasional sweats, generalized tingling/numbness, and occasional diarrhea; symptoms lasting for ~2 weeks and started after she ran out of Tizanidine. Patient was taking Tizanidine 8-12mg daily for "years" but ran out because she lost her PCP and does not have another one yet. Of note the patient has also been in the process of transitioning from Venlafaxine to Duloxetine. She sees a Psychiatrist for depression/anxiety and PTSD. Three months ago she was told to decrease Venlafaxine from 150mg to 112.5mg and to start taking Duloxetine 30mg. However she decreased Venlafaxine to 75mg at that time. When she started to have the above-mentioned symptoms several weeks ago, she increased her Venlafaxine to the prescribed 112.5mg. She has been taking Duloxetine at this time and is also taking Trazodone 200mg nightly. Patient denies fever/chills, syncope, near-syncope, confusion or seizures. Of note the patient drinks anywhere from 6-12 12-ounce beers per day for "a while". She had 4 12-ounce beers earlier in the night, with her last beer en route to the hospital. Patient denies previous seizures or hallucinations. Denies smoking or other drug use. In the ED the patient was initially tachycardic in 100s (sinus tachycardia per EKG) and hypertensive to 176/100. Labs significant for Na 127, Cl 89. BAL elevated at 71.5. K 3.9 and Cr 0.75. TSH 2.295. BSG 256. CT head w/o contrast was unremarkable. Patient received NSS 1L bolus and Ativan 1mg IV. Admission Exam Per Admitting Provider Physical Exam: General: A&Ox3. NAD. Cooperative. HEENT: Atraumatic, normocephalic. Pulm: CTAB A&P. -wheezes, -rales, -rhonchi. Symmetrical chest rise. No increase work of breathing. No respiratory distress. Cardiac: RRR, -mrg. Radial pulses intact and symmetrical. Abdominal: soft, non-tender, non-distended, BS x 4 Neurologic: CN's II-XI intact bilaterally and awake Speech / Cognition: normal speech Motor/Sensory: + tremor and + sensory deficit (decreased sensation throughout feet bilaterally) Coordination: normal ylopyt-lu-egme test and normal [id number] test +hyperreflexia (3+ patellar reflexes), without clonus Psychiatric: tearful, dysphoric, no SI/HI, no auditory/visual hallucinations Principal Diagnosis Serotonin Syndrome Discharge Exam General: A&Ox3. NAD. Cooperative. More awake appearing. HEENT: Atraumatic, normocephalic. Pulm: CTAB A&P. -wheezes, -rales, -rhonchi. Symmetrical chest rise. No increase work of breathing. No respiratory distress. Cardiac: RRR, -mrg. Radial pulses intact and symmetrical. Abdominal: soft, non-tender, non-distended Neurologic CN's II-XI intact bilaterally and awake Speech / Cognition: normal speech Motor/Sensory: + tremor (slight, decreases with distraction) Discharge Data Allergies Allergy/AdvReac Type Severity Reaction Status Date / Time Sulfa (Sulfonamide Allergy Unknown Verified 10/01/20 11:27 Antibiotics) Consultations 12/17/21 03:00 ED Decision to Admit Stat 12/18/21 09:43 Consult Psychiatry Routine Ordered Studies 12/17/21 00:39 CT head/brain wo con Urgent Hospital Course (1) Serotonin syndrome: (2) Hyponatremia: (3) Severe alcohol use disorder: (4) Lumbar paraspinal muscle spasm: (5) Depression: (6) Anxiety: (7) PTSD (post-traumatic stress disorder): (8) Diabetes: (9) Diet-controlled diabetes mellitus: (10) Leukocytosis: (11) Tachycardia: (12) Hypertension: Mariya Ayala is a 66 y/o female with PMHx significant for T2DM (diet- controlled), dyslipidemia, depression, anxiety, PTSD and alcohol use disorder who presented to [facility] ED on 12/17 for a variety of complaints, including increased anxiety, restlessness, muscle tremors, occasional sweats, generalized tingling/numbness, and occasional diarrhea who is clinically improving. Three months ago she was told to decrease Venlafaxine from 150mg to 112.5mg and to start taking Duloxetine 30mg. However she decreased Venlafaxine to 75mg at that time. When she started to have the above-mentioned symptoms several weeks ago, she increased her Venlafaxine to the prescribed 112.5mg. She has been taking Duloxetine at this time and is also taking Trazodone 200mg nightly. Patient was taking Tizanidine 8-12mg daily for "years" but ran out because she lost her PCP and does not have another one yet. Of note the patient has also been in the process of transitioning from Venlafaxine to Duloxetine. She sees a Psychiatrist for depression/anxiety and PTSD. #Serotonin Syndrome Patient taking trazodone, venlafaxine, and duloxetine at home. She self titrated up on the venlafaxine when she started experiencing symptoms of anxiety, tremor, and restlessness. This did not improve symptoms. They continued to worsen. She is at risk of serotonin syndrome due to her med list. Classic symptoms including hypertension, tachycardia, hallucinations, anxiety/agitation, restlessness, muscle tremors, diaphoresis, diarrhea. Hypertensive/tachycardic in ED with hyperreflexia on exam. UDS - BAL 71.5 otherwise negative Patient was seen by Psych they recommended that once serotonin syndrome has improved okay to restart Cymbalta 20 mg and trazodone 100 mg. Discontinued Effexor. Discontinued Klonopin. Restarted Cymbalta 20 mg and trazodone 100 mg. Hypertension/Tachycardia Patient is hypertensive and tachycardic likely in the setting of serotonin syndrome, alcohol withdrawal, and anxiety. Ativan was given per below. The patient had a round of atrial tachycardia to the 180s. When I reevaluated her she was around 120s. We ordered an EKG which showed sinus tachycardia 114. Follow up with cardiology for evaluation and a Holter monitor. #Severe Alcohol Use Disorder 72-144 ounces of beer per day - last drink en route to the hospital (patient's granddaughter drove her here). BAL 71.5 on presentation. Patient has had a difficult life and has a lot of unpacked trauma. She notes that she does use alcohol to self medicate. Patient was on AWSS protocol inpatient. Patient was given thiamine 100 mg PO daily and Folic acid 1 mg PO daily. Per psych, patient agreed to stop drinking during their discussion yesterday. They offered resources and options such as outpatient dual diagnosis therapy at [facility]. She stated that she did not need additional support and had done it before on her own. Her partner who she lives with drinks and smokes marijuana. #Leukocytosis - resolved Likely 2/2 to hemoconcentration - resolved on discharge 9.12. Cr WNL. Encouraged PO intake. #Depression; Anxiety; PTSD Continue Duloxetine 20 mg and trazodone 100 mg. [address] ated above. Avoid home Clonazepam in the setting of alcohol use. Continue home Prazosin #Hyponatremia: resolved Given patient's significant chronic beer use (72-144 ounces per day), I suspect that the Na 127 on admission (129 corrected for hyperglycemia) is chronic due to beer potomania. Suspect that symptoms are largely due to serotonin syndrome. Na 135 (137 corrected for hyperglycemia). #T2DM HbA1c 8.3. Not on medications. BSG 256 on presentation. Sugars continue to be high. SSI while admitted. Metformin 500 mg. Diabetes Education Recs - patient provided with blood glucose monitor RECOMMENDATIONS AT DISCHARGE: 1.) Lifestyle changes/wt loss. 2.) SMBG 1x/day- change times checking from day to day. 3.) Could consider restarting Metformin if pt agreeable to abstain from alcohol otherwise would consider an alternative oral agent. PRESCRIPTIONS NEEDED: 1.) OneTouch Verio Test Strips to check 1x/day. 2.) OneTouch Delica Lancets 33 gauge to check 1x/day. Peripheral Neuropathy Symptoms present and progressive x several months. Suspect due to alcohol abuse and diabetes. B12 726. Folate 18.57. Lumbar Paraspinal Muscle Spasms Chronic, after spinal fusion surgery several years ago. Was taking Tizanidine 8- 12mg daily for years but ran out ~2 weeks ago. Suspect that muscle tremors/spasms are largely due to serotonin syndrome rather than Tizanidine withdrawal, particularly because her symptoms are worsening despite being off of Tizanidine. Discontinue tizanidine. CKD Chart indicates CKD III. This seems unlikely as Cr is 0.76. Follow up outpatient. Dyslipidemia Follow up outpatient FEN/GI: DM2 diet DVT Prophylaxis: Lovenox Code Status: full code Disposition: med/tele Total Time Total Time Spent Total Time Spent (In Minutes): See attending attestation. Discharge Plan Discharge Items Patient Disposition: Home - Self-Care Reason For Visit: HYPONATREMIA Discharge Diagnosis: Serotonin Syndrome Activity: Per Instructions section Non-emergency contact: Primary Care Provider Call non-emergency contact if: you have any medication questions and your symptoms worsen Follow-up/Referrals: Lynnette Cohen PA-C [Outside Practitioners] - 01/13/22 3:00 pm (Telehealth ) Zayda Schaeffer MD [Resident] - 12/28/21 10:50 am PCP,NO [Primary Care Provider] - Diet: Carb Consistent or DM2 Addtl Attending Provider Instructions: You were seen in the hospital for serotonin syndrome - with anxiety, palpitations, high blood pressure, sweating, and a tremor. You were taking several medications that increase serotonin - duloxetine, venlafaxine, and trazodone. We held this until your symptoms improved. Restarted duloxetine 20 mg and trazodone 100 mg. Discontinue venlafaxine and Klonopin. Do not mix Klonopin with alcohol. There was also likely a component of alcohol withdrawal that contributed to your symptoms. Please reach out if you have difficulty abstaining from alcohol as we can get you set up for support or rehab. Follow up with your PCP 12/28/21 at 10:50 am. Pending Studies at Discharge: No Stand-Alone Forms: My [facility], Smoking Cessation Medications and DC Order Prescriptions: New duloxetine [Cymbalta] 20 mg Capsule,Delayed Release(Dr/Ec) 20 mg PO QAM Qty: 30 0RF trazodone 100 mg tablet 100 mg PO DAILY Qty: 30 0RF metformin 500 mg tablet 500 mg PO QPM Qty: 30 0RF Rx Instructions: Take at night with dinner (DME) OneTouch Verio test strips Strip See Rx Instructions .Route Qty: 50 0RF Rx Instructions: Check sugar once a day (DME) lancets [OneTouch Delica Lancets] 33 gauge misc See Rx Instructions .Route Qty: 100 0RF Rx Instructions: Check once a day Continued omeprazole 20 mg capsule,delayed release(DR/EC) 20 mg PO DAILY prazosin 2 mg capsule 2 mg PO DAILY Discontinued tizanidine 4 mg tablet 4 mg PO DAILY clonazepam 0.5 mg tablet 0.5 mg PO DAILY PRN (Reason: Anxiety) venlafaxine 150 mg capsule,extended release 24hr 150 mg PO QAM trazodone 100 mg tablet 200 mg PO HS Discharge Orders: Discharge Order (Routine); Ordered 12/20/21 Ordered By: Zayda Schaeffer Admission Data Admit Date/Time: 12/17/21 04:04 Attending Provider: Quoc Crandall Admit Provider: Zacarias Abarca Primary Care Provider: PCP,NO Other Providers: Curtis Porras ; Gabriela Ortiz ; Zita Hairston ; Cinthya Toure Other Interventions: Discharge Summary Assessment (RN) Last Done: 12/20/21 16:20 Supervising Physician Co-Signing Physician Notes Attending attestation Pt seen and examined in concert with Dr. Schaeffer. In agreement with the documented findings as noted in the resident documentation with any exceptions or additions as noted here. 66 year old female with history of AUD, depression, anxiety, PTSD and diabetes admitted with hyponatremia, serotonin syndrome, and alcohol intoxication. Ongoing improvement in tremulousness in the setting of etOH withdrawal and serotonin syndrome. Did have episode of palptiations with isolated tachycardia without apparent trigger which she reports is chronic at mealtimes but not every time she eats. On examination, S1/S2 nl RRR no MCG. CTAB. Abd NT/ND BS+ve. Minimal to no tremor apparent. VS and nursing notes reviewed. Serotonin syndrome - psychiatric consult - continue duloxetine 20mg, trazodone 100mg. Consider uptitration at discharge Alcohol use disorder w/ withdrawal - AWSS per protocol - strongly encourage use of supporting services for cessation to avoid similar, close follow up for supportive care DMII - metformin 500mg daily with close follow up and encourage weight loss at follow up Tachycardia - episodic in the setting of ongoing tachycardia w/ etOH use.. Holter montior and precautions at discharge w/ follow up as noted. Else see resident documentation as noted. Total attending time spent with this patient's care on the day of discharge: 45 minutes. Resident Activity Tracking Resident Involvement: Resident Care Provided Care Provided: Adult [facility] Medicine
--- NOTE | 2021-12-21 12:31 | Electrocardiogram Report ---
Test Reason : Blood Pressure : / mmHG Vent. Rate : 114 BPM Atrial Rate : 114 BPM P-R Int : 120 ms QRS Dur : 064 ms QT Int : 298 ms P-R-T Axes : 060 023 047 degrees QTc Int : 410 ms Sinus tachycardia Nonspecific ST abnormality Abnormal ECG When compared with ECG of 17-DEC-2021 01:00, No significant change was found Confirmed by Danny Benton ([id number]) on 12/21/2021 12:31:24 PM Referred By: REFERRED SELF Confirmed By:Danny Benton
== END 2021-12-20 17:48 | disposition home or self-care (01) | DRG 918 ==
LOC: ED 23:41 → 2N 12-17 04:04 → SUATTDRO 12-17 04:04 → 2N 12-17 04:57

== ENCOUNTER 2023-11-07 05:23 | Inpatient (IN) ==
[2023-11-07 05:52] LABS: Basophils # (auto) 0.05 K/uL (0.00-0.20); Basophils % (auto) 0.6 %; Eosinophils # (auto) 0.17 K/uL (0.00-0.50); Hemoglobin 13.7 g/dl (12.0-16.0); Immature Granulocytes # (auto) 0.02 K/uL (0.01-0.20); Immature Granulocytes % (auto) 0.2 %; Lymphocytes # (auto) 3.32 K/uL (1.20-3.40); Mean Corpuscular Hemoglobin 31.4 pg (25.0-34.0); Mean Corpuscular Hgb Conc 35.1 g/dL (32.0-36.0); Mean Corpuscular Volume 89.2 fL (80.0-100.0); Mean Platelet Volume 9.9 fL (9.4-12.4); Monocytes # (auto) 0.74 K/uL (0.11-0.59); Monocytes % (auto) 8.9 %; Neutrophils # (auto) 4.01 K/uL (1.40-6.50); Neutrophils % (auto) 48.3 %; Platelet Count 108 K/uL (130-400); RDW Coefficient of Variation 12.3 % (11.5-14.5); RDW Standard Deviation 40.1 fL (36.4-46.3); Red Blood Count 4.37 M/uL (4.20-5.40); White Blood Count 8.31 K/ul (4.8-10.8)
[2023-11-07 06:09] LABS: Albumin Globulin Ratio 1.2 (0.9-2); BUN Creatinine Ratio 7.6 (10-20); Bilirubin,Total 0.5 mg/dl (0.2-1.0); Calcium 8.4 mg/dl (8.6-10.3); Est GFR (African American) 75.2 ml/min; Est GFR (Non-African American) 64.9 ml/min; Globulin 3.3 gm/dl (2.5-4.0); Magnesium 1.6 mg/dl (1.7-2.4); Potassium 3.8 mmol/L (3.5-5.1); Total Protein 7.3 gm/dl (6.0-8.3)
[2023-11-07] MEDS: LIDOCAINE/EPINEPH/TETRACAINE 1 EA SYR EXT ONE (06:42)
[2023-11-07] MEDS: LIDOCAINE/EPINEPH/TETRACAINE 1 EA SYR EXT STA (06:42)
--- NOTE | 2023-11-07 06:45 | Emergency Department Note ---
Impression & Plan Acute hyponatremia, Fall, Laceration of head, Alcohol intoxication ED Provider Note NAME: JARAD FUENTES AGE: 68 SEX: F : 1955 ARRIVES VIA: Ambulance INFORMANT: Patient ED PROVIDER(S): Fred Dyson DO CHIEF COMPLAINT: Fall HPI: Patient is a 68-year-old female with a past medical history of hypertension, diabetes, hyponatremia and alcohol disorder/abuse who presents to the ER following a fall. She notes she was drinking alcohol last night and had about 10 beers. She bent over to roller picker a bottle water and fell forward and hit her head. She did not pass out. She denies any face or neck pain other than her forehead. She denies any prodromal symptoms including dizziness, lightheadedness or chest pain or shortness of breath. Denies any change in vision or blurry vision. No chest pain or shortness of breath. No back pain. No belly pain. No nausea vomiting or diarrhea. No extremity pain. No other exacerbating or remitting factors. ADDITIONAL HISTORY OBTAINED: Per HPI Chronic Medical/Social Conditions Affecting Care: Per HPI PAST MEDICAL HISTORY:See Below PAST SURGICAL HISTORY:See Below FAMILY HISTORY:See Below SOCIAL HISTORY:See Below HOME MEDICATIONS:See Below ALLERGIES:See Below VITALS:See Below PHYSICAL EXAMINATION: GENERAL: Sitting up in bed, alert, well appearing, well nourished, no distress, non-toxic, smell of alcohol on breath HEAD: Laceration on the forehead going up into the left side. Venous oozing present. EYE EXAM: normal conjunctiva. PERRL and EOM's grossly intact. OROPHARYNX: no exudate, no erythema, lips, buccal mucosa, and tongue normal and mucous membranes are moist NECK: supple, no nuchal rigidity, no adenopathy, non-tender CHEST: Stable to compression anteriorly and posteriorly LUNGS: Clear to auscultation. Normal chest wall mechanics HEART: no murmurs, S1 normal and S2 normal ABDOMEN: abdomen soft, non-tender, normo-active bowel sounds, no masses, no rebound or guarding. PELVIS: Stable to compression anteriorly and posteriorly BACK: Back is symmetrical on inspection and there is no deformity, no midline tenderness, no CVA tenderness. SKIN: no rashes and no bruising UPPER EXTREMITIES: upper extremities are grossly normal. LOWER EXTREMITIES: No pitting edema. NEURO EXAM: Awake alert oriented to person, place and time moving all extremities, cranial nerves II-XII grossly intact, normal speech, no gross weakness of arms, no gross weakness of legs. No drift. Finger to nose intact. Gross sensation intact. MEDICAL DECISION MAKING: Patient is a 68-year-old female who presents the ER for the above-stated complaint. IV was established blood work was obtained. Labs show no significant leukocytosis or anemia. Mild thrombocytopenia likely secondary to recurrent alcohol abuse. BMP with significant hyponatremia at 123. Magnesium low at 1.6. LFTs bilirubin was unremarkable. Alcohol significantly elevated 270. CT of the head was already ordered prior to my evaluation by the preceding doctor who did not evaluate the patient. I added on the CT of the neck. CT of the head and neck were negative. Patient was given IV fluids. Updated at bedside. Laceration was repaired by my PA. Please see her note for further details. Patient was admitted to the hospitalist Consults/Care Managements Discussions: Per [facility] Triage Nursing notes reviewed. Limited review of prior medical records performed Vital Signs: reviewed and remarkable for HTN and tachy Differential diagnosis: Differential diagnoses include major intracranial, cervical, spinal, thoracic, abdominal, pelvic and neurologic injury. Fracture, contusion, sprain, strain, laceration, abrasions included as well. ER treatment provided: See below Diagnostics interpreted by me include EKG and cardiac monitoring as listed below: -Cardiac Monitoring: An order was placed for continuous cardiac monitoring. The monitor shows a rate of 101 with sinus rhythm. -ECG: none -Laboratory studies:Interpreted by me as stated above in MDM and shown below. Imaging studies: Xrays: As interpreted by me:none CTs show: CT head per my preliminary interpretation showed a significant mount of motion artifact CT of the head and cervical spine was negative Procedures:none Critical Care: None Past Med/Surg History Problem List Alcohol intoxication (Acute) Laceration of head (Acute) Fall (Acute) Acute hyponatremia (Acute) Hypertension Tachycardia Leukocytosis Diabetes Alcohol use disorder, moderate, dependence Acute hyponatremia (Acute) Medication withdrawal (Acute) Lumbar paraspinal muscle spasm Hyponatremia Serotonin syndrome Depression (Chronic) Anxiety (Chronic) PTSD (post-traumatic stress disorder) (Chronic) Diet-controlled diabetes mellitus (Chronic) Dyslipidemia (Chronic) CKD (chronic kidney disease), stage III (Chronic) History of partial hysterectomy (Chronic) H/O right knee surgery (Chronic) H/O thumb surgery (Chronic) H/O arthroscopy of shoulder (Chronic) Medical History (Updated 11/07/23 @ 09:33 by Fred Dyson DO) Alcohol intoxication Family History Other Diabetes Heart disease Social History Smoking Status: Former smoker Second Hand Exposure: No; Do You Dip or Chew Tobacco: No; Hx Alcohol Use: Yes Alcohol type: beer Hx Substance Use: No Preferred Language: Peruvian Communication Ability: Effective Instrumentation Manager Required: No Beliefs That Will Affect Care: None Current Living Situation: Significant Other Current Living Situation Comment: Lives with boyfriend and emotional support dog Feels Safe at Home: Yes Assistive Devices: Cane and Walker Allergies Allergies Allergy/AdvReac Type Severity Reaction Status Date / Time Sulfa (Sulfonamide Allergy Unknown Verified 10/01/20 11:27 Antibiotics) Home Meds Home Medications Medication Instructions Recorded Confirmed omeprazole 20 mg capsule,delayed 20 mg PO DAILY 12/12/19 10/01/20 release prazosin 2 mg capsule 2 mg PO DAILY 12/12/19 10/01/20 Previous Rx's Medication Instructions Recorded blood sugar diagnostic (Peer.imTouch #50 ea 12/20/21 Verio test strips) duloxetine 20 mg capsule,delayed 20 mg PO QAM #30 caps 12/20/21 release (Cymbalta) lancets 33 gauge (Peer.imuch Delica #100 ea 12/20/21 Lancets) metformin 500 mg tablet 500 mg PO QPM #30 tabs 12/20/21 trazodone 100 mg tablet 100 mg PO DAILY #30 tabs 12/20/21 Results & Data (ED) Vital Signs Vital Signs - 24 hr 11/07/23 05:32 11/07/23 05:35 11/07/23 05:59 Temperature 36.7 C Temperature Source Oral Pulse Rate 102 H 100 H Pulse Rate [Apical] 102 H Pulse Rhythm Regular Pulse Rhythm [Apical] Regular Pulse Strength Normal Pulse Strength [Apical] Normal Respiratory Rate 16 14 Respiratory Effort / Characteristics Non-Labored Non-Labored Respiratory Depth Normal Normal Respiratory Pattern Regular Regular Blood Pressure 147/81 H Blood Pressure [Left Arm] 147/81 H Blood Pressure Mean 103 Blood Pressure Mean [Left Arm] 103 Blood Pressure Position Sitting Pulse Oximetry 94 95 Oxygen Delivery Method Room Air Room Air Sepsis Recent Fever Within 48 Hours No Sepsis New/Unexplained Change in Mental Status No Sepsis Action Taken by Nursing No Action Required 11/07/23 07:16 Temperature Temperature Source Pulse Rate Pulse Rate [Apical] 102 H Pulse Rhythm Pulse Rhythm [Apical] Pulse Strength Pulse Strength [Apical] Respiratory Rate 18 Respiratory Effort / Characteristics Respiratory Depth Respiratory Pattern Blood Pressure Blood Pressure [Left Arm] 162/88 H Blood Pressure Mean Blood Pressure Mean [Left Arm] 112 Blood Pressure Position Pulse Oximetry 94 Oxygen Delivery Method Sepsis Recent Fever Within 48 Hours Sepsis New/Unexplained Change in Mental Status Sepsis Action Taken by Nursing Laboratory Data 11/07/23 05:33 11/07/23 05:33 Lab Results 11/07/23 Range/Units 05:33 WBC 8.31 (4.8-10.8) K/ul RBC 4.37 (4.20-5.40) M/uL Hgb 13.7 (12.0-16.0) g/dl Hct 39.0 (37.0-47.0) % MCV 89.2 (80.0-100.0) fL MCH 31.4 (25.0-34.0) pg MCHC 35.1 (32.0-36.0) g/dL RDW Std Deviation 40.1 (36.4-46.3) fL RDW Coeff of Emmanuelle 12.3 (11.5-14.5) % Plt Count 108 L (130-400) K/uL MPV 9.9 (9.4-12.4) fL Immature Gran % (Auto) 0.2 % Neut % (Auto) 48.3 % Lymph % (Auto) 40.0 % Roane % (Auto) 8.9 % Eos % (Auto) 2.0 % Baso % (Auto) 0.6 % Neut # (Auto) 4.01 (1.40-6.50) K/uL Lymph # (Auto) 3.32 (1.20-3.40) K/uL Roane # (Auto) 0.74 H (0.11-0.59) K/uL Eos # (Auto) 0.17 (0.00-0.50) K/uL Baso # (Auto) 0.05 (0.00-0.20) K/uL Immature Gran # (Auto) 0.02 (0.01-0.20) K/uL Sodium 123 L (136-145) mmol/L Potassium 3.8 (3.5-5.1) mmol/L Chloride 87 L (98-107) mmol/L Carbon Dioxide 26 (21-32) mmol/L Anion Gap 10 (3-11) BUN 7 (6-23) mg/dl Creatinine 0.92 (0.6-1.2) mg/dl Est Cr Clr Drug Dosing 75.0 ml/min Est GFR ( Amer) 75.2 ml/min Est GFR (Non-Af Amer) 64.9 ml/min BUN/Creatinine Ratio 7.6 L (10-20) Glucose 197 H (70-99(Fasting)) mg/dl Calcium 8.4 L (8.6-10.3) mg/dl Magnesium 1.6 L (1.7-2.4) mg/dl Total Bilirubin 0.5 (0.2-1.0) mg/dl AST 29 (13-39) U/L ALT 15 (7-52) U/L Alkaline Phosphatase 60 (34-104) U/L Total Protein 7.3 (6.0-8.3) gm/dl Albumin 4.0 (3.4-5.0) gm/dl Globulin 3.3 (2.5-4.0) gm/dl Albumin/Globulin Ratio 1.2 (0.9-2) Ethyl Alcohol mg/dL 268.5 H (<10.0) mg/dl Administered Medications Discontinued Medications Sodium Chloride (Nss) 1,000 mls @ 999 mls/hr IV .Q1H1M ONE Stop: 11/07/23 07:45 Last Admin: 11/07/23 06:49 Dose: 999 mls/hr Documented By: MICHELLE Lidocaine (Lidocaine/Epineph/Tetracaine 1 Ea Syr) Confirm Administered Dose 1 each EXT .STK-MED ONE Stop: 11/07/23 06:35 Last Admin: 11/07/23 06:42 Dose: Not Given Documented By: MICHELLE Lidocaine (Lidocaine/Epineph/Tetracaine 1 Ea Syr) 1 each EXT NOW STA Stop: 11/07/23 06:41 Last Admin: 11/07/23 06:42 Dose: 1 each Documented By: MICHELLE Lidocaine/Epinephrine (Lidocaine 1%/Epinephrine 1:100,000 50 Ml Vial) 10 ml INFIL NOW ONE Stop: 11/07/23 06:59 Last Admin: 11/07/23 07:15 Dose: 10 ml Documented By: LARRY Imaging Data Radiologist's Impression: Head CT 11/07/23 05:[address] DOSE: 1250.21 mGy.cm HISTORY: head injury s/p fall TECHNIQUE: Multiaxial CT images of the head were performed without the use of intravenous contrast. Automated exposure control was utilized for this study. A dose lowering technique was utilized adhering to the principles of ALARA. Comparison: Head CT 12/17/2021. Findings: Mild mucosal thickening and a small retention cyst within the left maxillary sinus. The mastoid air cells are clear. Left frontal scalp swelling. The calvarium and skull base are intact. The ventricles and sulci are within normal limits. There is no mass, hematoma, midline shift, or acute infarct. Impression: No acute intracranial abnormality. Left frontal scalp swelling. ACT 112: Negative or not required by law. Electronically signed by: Manfred Gloria M.D. 11/07/2023 7:[address] 11/07/23 06:[address] DOSE: HISTORY: fall TECHNIQUE: Multiaxial CT images of the cervical spine were performed and reformatted in the sagittal and coronal plane without the use of contrast. A dose lowering technique was utilized adhering to the principles of ALARA. COMPARISON: Cervical spine CT 12/03/2012. FINDINGS: Mild motion artifact. No fractures. Questionable anterior wedging at C4 is likely due to the motion artifact. Minimal anterolisthesis at C5-C6, unchanged. [id number] facet degenerative changes are noted. Prevertebral soft tissues and the C1-C2 interval are intact. No pneumothorax. IMPRESSION: Mild motion artifact. No definite acute fracture or subluxation. ACT 112: Negative or not required by law. Electronically signed by: Manfred Gloria M.D. 11/07/2023 7:16 AM Discharge Plan Visit Data Chief Complaint: Head Injury, Minor Stated Complaint: Fall, Head Injury, ETOH ED Provider: Dyson,Fred M Discharge Problem: Acute hyponatremia, Fall, Laceration of head, Alcohol intoxication Forms Stand Alone Forms: [facility] Prescriptions Prescriptions: No Action omeprazole 20 mg capsule,delayed release(DR/EC) 20 mg PO DAILY prazosin 2 mg capsule 2 mg PO DAILY duloxetine [Cymbalta] 20 mg Capsule,Delayed Release(Dr/Ec) 20 mg PO QAM Qty: 30 0RF trazodone 100 mg tablet 100 mg PO DAILY Qty: 30 0RF metformin 500 mg tablet 500 mg PO QPM Qty: 30 0RF Rx Instructions: Take at night with dinner (DME) OneTouch Verio test strips Strip See Rx Instructions .Route Qty: 50 0RF Rx Instructions: Check sugar once a day (DME) lancets [OneTouch Delica Lancets] 33 gauge misc See Rx Instructions .Route Qty: 100 0RF Rx Instructions: Check once a day Referrals Referrals: Eduardo Ruiz MD [Primary Care Provider] - Zayda Schaeffer MD [Resident] - (PCP) Discharge Problem: Fall Qualifiers: Encounter type: initial encounter Qualified Code(s): W19.XXXA - Unspecified fall, initial encounter Laceration of head Qualifiers: Encounter type: initial encounter Location of open wound of head: unspecified part of head Foreign body presence: without foreign body Qualified Code(s): S 01.91XA - Laceration without foreign body of unspecified part of head, initial encounter Alcohol intoxication Qualifiers: Complication of substance-induced condition: with unspecified complication Q ualified Code(s): F10.929 - Alcohol use, unspecified with intoxication, unspecified
[2023-11-07] MEDS: SODIUM CHLORIDE 0.9% 1,000 ML IV ONE (06:49)
--- NOTE | 2023-11-07 07:14 | CT Scan Report ---
HEAD CT NONCONTRAST CT DOSE: 1250.21 mGy.cm HISTORY: head injury s/p fall TECHNIQUE: Multiaxial CT images of the head were performed without the use of intravenous contrast. A utomated exposure control was utilized for this study. A dose lowering technique was utilized adheri ng to the principles of ALARA. Comparison: Head CT 12/17/2021. Findings: Mild mucosal thickening and a small retention cyst within the left maxillary sinus. The mas toid air cells are clear. Left frontal scalp swelling. The calvarium and skull base are intact. The v entricles and sulci are within normal limits. There is no mass, hematoma, midline shift, or acute inf arct. Impression: No acute intracranial abnormality. Left frontal scalp swelling. ACT 112: Negative or not required by law. Electronically signed by: Manfred Gloria M.D. 11/07/2023 7:12 AM
[2023-11-07] MEDS: LIDOCAINE 1%/EPINEPHRINE 1:100,000 50 ML VIAL INFIL ONE (07:15)
--- NOTE | 2023-11-07 07:18 | CT Scan Report ---
CERVICAL SPINE CT CT DOSE: HISTORY: fall TECHNIQUE: Multiaxial CT images of the cervical spine were performed and reformatted in the sagittal and coronal plane without the use of contrast. A dose lowering technique was utilized adhering to th e principles of ALARA. COMPARISON: Cervical spine CT 12/03/2012. FINDINGS: Mild motion artifact. No fractures. Questionable anterior wedging at C4 is likely due to th e motion artifact. Minimal anterolisthesis at C5-C6, unchanged. [id number] facet degenerative c hanges are noted. Prevertebral soft tissues and the C1-C2 interval are intact. No pneumothorax. IMPRESSION: Mild motion artifact. No definite acute fracture or subluxation. ACT 112: Negative or not required by law. Electronically signed by: Manfred Gloria M.D. 11/07/2023 7:16 AM
--- NOTE | 2023-11-07 09:15 | Emergency Department Note ---
ED Visit Note I was asked by Dr. Dyson to assist with a laceration repair for this patient. The patient sustained a ground-level fall causing a laceration to the superior forehead, 8 cm in length. The wound was anesthetized using 1% buffered lidocaine, which they tolerated well. Using sterile procedure, the wound bed was prepped and cleansed with sterile saline and Betadine. No foreign body was retained in the wound. Wound edges were approximated using 19, 5-0 sutures which will need to be removed in 7-10 days. The patient tolerated the procedure well. Bacitracin was applied to the wound as well as bandage. The patient was provided wound care instructions as well as strict return precautions and follow-up care. .
--- NOTE | 2023-11-07 10:37 | History & Physical Report ---
Date of Service November 07, 2023 Assessment & Plan (1) Acute hyponatremia: Plan: moderate to severe hyponatremia with sodium of 123 that is asymptomatic, previous sodium checks have been [id number] related to high intake of beer and low oral intake of food/salt. family reports she drinks a lot and eats extremely poorly because she feels up on alcohol unclear chronicity, assume this is acute and will correct slowly. Goal is 7 mEq or less in 24 hours. That would be sodium of 130 by tomorrow morning did receive some IV fluids upfront in the ED is awake and alert and able to eat and drink repeated stat sodium this morning improved from 123->125 hold off on any other IV fluids likely to [employer] monitor serum sodium every 6 hours, BMP in a.m. normal salt diet (2) Laceration of head: Plan: sutured in ED needs to follow-up for suture removal (3) Severe alcohol use disorder: Plan: counseled cessation, she seems precontemplative at the moment but also willing to detox social work consult for quite resources ordered AWSS monitoring with alcohol withdrawal protocol/lorazepam. not currently in withdrawal but BAL was 260 in the ED daily oral folate and thiamine replacement (4) Diabetes: Plan: diabetes typically controlled with twice daily metformin, significant truncal obesity hold metformin for now diabetic diet check A1c in a.m. ordered basal bolus insulin, blood glucose checks (5) Hypertension: Plan: has been out of losartan for about a week resume losartan 50 mg Plan thrombocytopenia, moderatelikely related to direct toxic effect of alcohol on the bone marrow. Repeat platelet count in a.m. and then in approximately a week after quitting drinking see if it resolves entirely morbid obesity BMI of 43, she does snore and is at risk for obstructive sleep apnea, referral for sleep apnea evaluation would be indicated if she is amenable history of depression and PTSDcontinue duloxetine, BuSpar, prazosin, trazodone. note history of serotonin syndrome in past - duloxetine could induce hyponatremia but she has been on this a long time with stability so I do not think that is the cause mild hypomagnesemia of 1.6, replaced with 2 g IV, recheck in a.m. DVT prophylaxishold off on chemoprophylaxis today with scalp lack start enoxaparin in a.m. History of Present Illness Chief Complaint: fell, cut forehead Primary Care Provider: Tracey Nieto PA-C 68 y/o with alcohol use disorder had been drinking heavily yesterday (10 beers and 2 mixed drinks) when she bent over to pick something up and fell forward striking her forehead. This resulted in significant scalp laceration with bleeding. Only complaint currently is headache related to this. It was sutured in ED. Additional ED workup with CT head and cspine negative for fracture. Chemistry panel notable for Na 123 - has had hyponatremia in past but not this severe. BAL was 268. Plt 108. Otherwise she states she is feeling fine. She knows she needs to stop drinking and had long period of sobriety in the past. She was treated for withdrawal in the hospital once in the past but that was concomitant with treatment for a serotonin syndrome from celexa + venlafaxine so unclear how severe the withdrawl was. Her father from complications of alcoholism. She lives with her boyfriend. Her daughter and granddaughter are supportive of her quitting drinking and are here at the bedside and provided additional history. Allergies Allergy/AdvReac Type Severity Reaction Status Date / Time Sulfa (Sulfonamide Allergy Unknown Verified 10/01/20 11:27 Antibiotics) Home Medications Medication Instructions Recorded Confirmed Type omeprazole 20 mg capsule,delayed 20 mg PO DAILY 12/12/19 11/07/23 History release prazosin 2 mg capsule 2 mg PO HS 12/12/19 11/07/23 History blood sugar diagnostic (Gigalouch #50 ea 12/20/21 Rx Verio test strips) duloxetine 20 mg capsule,delayed 20 mg PO QAM #30 caps 12/20/21 11/07/23 Rx release (Cymbalta) lancets 33 gauge (GigaloTouch Deldaisy #100 ea 12/20/21 Rx Lancets) metformin 500 mg tablet 500 mg PO QPM #30 tabs 12/20/21 11/07/23 Rx buspirone 10 mg tablet 10 mg PO TID 11/07/23 11/07/23 History diphenhydramine HCl 25 mg capsule 25 mg PO HS PRN Allergy Symptoms 11/07/23 11/07/23 History (Benadryl) duloxetine 30 mg capsule,delayed 30 mg PO DAILY 11/07/23 11/07/23 History release losartan 50 mg tablet 50 mg PO DAILY 11/07/23 11/07/23 History rosuvastatin 10 mg tablet 10 mg PO HS 11/07/23 11/07/23 History trazodone 100 mg tablet 200 mg PO HS 11/07/23 11/07/23 History Past Med/Surg History Problem List Severe alcohol use disorder Alcohol intoxication (Acute) Laceration of head (Acute) Fall (Acute) Acute hyponatremia (Acute) Hypertension Tachycardia Leukocytosis Diabetes Alcohol use disorder, moderate, dependence Acute hyponatremia (Acute) Medication withdrawal (Acute) Lumbar paraspinal muscle spasm Hyponatremia Serotonin syndrome Depression (Chronic) Anxiety (Chronic) PTSD (post-traumatic stress disorder) (Chronic) Diet-controlled diabetes mellitus (Chronic) Dyslipidemia (Chronic) CKD (chronic kidney disease), stage III (Chronic) History of partial hysterectomy (Chronic) H/O right knee surgery (Chronic) H/O thumb surgery (Chronic) H/O arthroscopy of shoulder (Chronic) Medical History (Updated 11/07/23 @ 10:29 by Maribel Tobias MD) Alcohol intoxication Family History Other Diabetes Heart disease Social History Smoking Status: Former smoker Second Hand Exposure: No; Do You Dip or Chew Tobacco: No; Hx Alcohol Use: Yes Alcohol type: beer Hx Substance Use: No Preferred Language: Sinhala Communication Ability: Effective [employer] Account Manager Required: No Beliefs That Will Affect Care: None Current Living Situation: Significant Other Current Living Situation Comment: Lives with boyfriend and emotional support dog Feels Safe at Home: Yes Assistive Devices: Cane and Walker Review of Systems 2 Review of Systems: All systems reviewed & are unremarkable except as noted in HPI & below Musculoskeletal: chronic arthritis pain multiple joints Psychiatric: PTSD and depression Hematologic / Lymphatic: low platelets Allergy / Immunological: seasonal allergies Physical Exam 2 Physical Exam: PHYSICAL EXAMINATION Last 24h vital signs reviewed, see documentation in flowsheet General: comfortable appearing, no distress HEENT: long laceration upper forehead which bends to the left that is sutured with at least 17 interrupted stitches, pupils round and equal, sclerae anicteric, no conjunctival injection, moist mucus membranes Lungs: Normal respiratory effort. Clear to auscultation bilaterally. No RRW Heart: Regular rate and rhythm, no murmurs. No JVD Abdomen: Soft, nontender, nondistended, protuberant. Bowel sounds present. Extremities: Warm, dry, well-perfused. No extremity edema. Neuro: Alert and oriented x 4, face symmetric, moves 4 extremities well, no tremor skin: Warm dry no rashes Psych: Normal affect and behavior Results & Data Results & Data Vital Signs (Past 12 Hours) Vital Signs Temp Pulse Pulse Resp BP BP Pulse Ox 11/07/23 07:16 102 H 18 162/88 H 94 11/07/23 05:59 102 H 14 147/81 H 95 11/07/23 05:35 36.7 C 100 H 16 147/81 H 94 11/07/23 05:32 102 H O2 Del Method 11/07/23 07:16 11/07/23 05:59 Room Air 11/07/23 05:35 Room Air 11/07/23 05:32 Laboratory Results 11/07/23 05:33 11/07/23 09:[address] 11/07/23 05:[address] DOSE: 1250.21 mGy.cm HISTORY: head injury s/p fall TECHNIQUE: Multiaxial CT images of the head were performed without the use of intravenous contrast. Automated exposure control was utilized for this study. A dose lowering technique was utilized adhering to the principles of ALARA. Comparison: Head CT 12/17/2021. Findings: Mild mucosal thickening and a small retention cyst within the left maxillary sinus. The mastoid air cells are clear. Left frontal scalp swelling. The calvarium and skull base are intact. The ventricles and sulci are within normal limits. There is no mass, hematoma, midline shift, or acute infarct. Impression: No acute intracranial abnormality. Left frontal scalp swelling. ACT 112: Negative or not required by law. Electronically signed by: Manfred Gloria M.D. 11/07/2023 7:[address] 11/07/23 06:[address] DOSE: HISTORY: fall TECHNIQUE: Multiaxial CT images of the cervical spine were performed and reformatted in the sagittal and coronal plane without the use of contrast. A dose lowering technique was utilized adhering to the principles of ALARA. COMPARISON: Cervical spine CT 12/03/2012. FINDINGS: Mild motion artifact. No fractures. Questionable anterior wedging at C4 is likely due to the motion artifact. Minimal anterolisthesis at C5-C6, unchanged. [id number] facet degenerative changes are noted. Prevertebral soft tissues and the C1-C2 interval are intact. No pneumothorax. IMPRESSION: Mild motion artifact. No definite acute fracture or subluxation. ACT 112: Negative or not required by law. Electronically signed by: Manfred Gloria M.D. 11/07/2023 7:16 AM Code Status & VTE Plan VTE Prophylaxis Plan VTE Prophylaxis will be ordered: Yes PG Care Time/CCT Total # of Minutes Spent Total Time Spent with Patient: Total time spent is greater than 50% in coordination of care (as documented) at patient's floor/unit and/or counseling patient: Coding Level of Care Code 64568 INT INP/OBS CARE 375MIN Diagnoses Acute hyponatremia E87.1 Laceration of head S01.91XA Encounter type: initial encounter Foreign body presence: without foreign body Location of open wound of head: unspecified part of head Severe alcohol use disorder F10.20 Diabetes E11.9 Hypertension I10 (2) Laceration of head Encounter type: initial encounter Foreign body presence: without foreign body Location of open wound of head: unspecified part of head Qualified Code(s): S 01.91XA - Laceration without foreign body of unspecified part of head, initial encounter
[2023-11-07] MEDS: IBUPROFEN 600 MG TAB PO ONE (11:08)
[2023-11-07] MEDS: MAGNESIUM SULFATE 1GM / D5W BAG IV ONE (11:08)
[2023-11-07] MEDS: MAGNESIUM SULFATE / D5W 1 GM/100 ML BAG IV SCH (11:27)
[2023-11-07] MEDS: LOSARTAN POTASSIUM 50 MG TAB PO SCH (11:57)
[2023-11-07] MEDS: DULoxetine HCL 30 MG CAP PO SCH (11:57)
[2023-11-07] MEDS: PANTOprazole 40 MG TAB PO SCH (11:58)
[2023-11-07] MEDS ORDERED: GLUCAGON FOR INJ 1 MG VIAL SQ PRN (13:29)
[2023-11-07] MEDS ORDERED: ALUMINUM/MAGNESIUM SUSP 30 ML UDC PO PRN (13:29)
[2023-11-07] MEDS ORDERED: CARBOHYDRATES FOR HYPOGLYCEMIA PO PRN (13:29)
[2023-11-07] MEDS ORDERED: POLYETHYLENE (MIRALAX) 17 GM PACK PO PRN (13:29)
[2023-11-07] MEDS ORDERED: MELATONIN 3 MG TAB PO PRN (13:29)
[2023-11-07] MEDS ORDERED: ONDANSETRON INJ 2 MG/ML 2 ML VIAL IV PRN (13:29)
[2023-11-07] MEDS ORDERED: GLUCOSE 40% GEL 15 GM TUBE PO PRN (13:29)
[2023-11-07] MEDS ORDERED: DEXTROSE 50% 50 ML SYRINGE IV PRN (13:29)
[2023-11-07] MEDS ORDERED: GLUCOSE 10 TAB/TUBE PO PRN (13:29)
[2023-11-07] MEDS ORDERED: MAGNESIUM HYDROXIDE SUSP 30 ML UDC PO PRN (13:29)
[2023-11-07] MEDS ORDERED: LORazepam 1 MG TAB PO PRN (13:29)
[2023-11-07] MEDS ORDERED: LORazepam 1 MG in SYRINGE 0.5 ML IV PRN (13:29)
[2023-11-07] MEDS: INSULIN ASPART PER UNIT CHARGE SC SCH (13:56)
[2023-11-07] MEDS: busPIRone 5 MG TAB PO SCH (13:57)
[2023-11-07] MEDS: THIAMINE HCL 100 MG TAB PO SCH (14:09)
[2023-11-07] MEDS: FOLIC ACID 1 MG TAB PO SCH (14:09)
[2023-11-07 15:45] LABS: BUN Creatinine Ratio 4.5 (10-20); Calcium 8.4 mg/dl (8.6-10.3); Creatinine Clr Calc Pharmacy 61.8 ml/min; Est GFR (African American) 60.6 ml/min; Est GFR (Non-African American) 52.3 ml/min; Potassium 4.4 mmol/L (3.5-5.1)
[2023-11-07] MEDS: ACETAMINOPHEN 325 MG TAB PO PRN (16:46)
[2023-11-07] MEDS: LANTUS PER UNIT CHARGE SQ SCH (20:07)
[2023-11-07] MEDS: traZODone HCL 100 MG TAB PO SCH (20:09)
[2023-11-07] MEDS: ROSUVASTATIN CALCIUM 10 MG TAB PO SCH (20:10)
[2023-11-07] MEDS: PRAZOSIN HCL 1 MG CAP PO SCH (20:10)
[2023-11-07] MEDS: BACLOFEN 10 MG TAB PO PRN (20:15)
[2023-11-07] MEDS: traMADol HCL 50 MG TABLET PO STA (20:15)
--- NOTE | 2023-11-07 20:16 | Communication Note ---
Date of Service: November 07, 2023 68 y/o female with a PMHx DM, HTN, HLD, anxiety/depression, PTSD, alcohol use disorder, and prior admission for serotonin syndrome with ?withdrawal. Did stop by and see Miss Meyers as she is a long standing patient of mine. She has not been seen in office in some time. Patient reports feeling embarrassed to return because she resumed drinking and regained a significant amount of weight. Patient really only being seen by her psychiatrist and is out of multiple of her medications. Patient has a long standing history of alcohol use. Had been sober for several months when I last saw her. Typically drinks beer. Situation is complicated by her living situation. Patient lives with her oysterman boyfriend who is a daily alcohol user and not supportive of her sobriety. Patient also has an extensive trauma history. There is a large component of self-medicating. Has not required any ativan at this point. No withdrawal symptoms at present. Does note having a severe back spasm and looks uncomfortable. Given tramadol x 1 and ordered baclofen 5 mg TID as needed. Resident Activity Tracking Resident Involvement: Resident Care Provided Care Provided: Adult [facility]
[2023-11-07] MEDS: DICLOFENAC SOD 1% GEL 100 GM TUBE EXT SCH (21:12)
[2023-11-08 07:30] LABS: Hematocrit (blood only) 39.8 % (37.0-47.0); Mean Corpuscular Hemoglobin 31.2 pg (25.0-34.0); Mean Corpuscular Hgb Conc 35.2 g/dL (32.0-36.0); Mean Corpuscular Volume 88.6 fL (80.0-100.0); Mean Platelet Volume 10.1 fL (9.4-12.4); Platelet Count 95 K/uL (130-400); RDW Coefficient of Variation 12.5 % (11.5-14.5); RDW Standard Deviation 40.9 fL (36.4-46.3); Red Blood Count 4.49 M/uL (4.20-5.40); White Blood Count 4.91 K/ul (4.8-10.8)
[2023-11-08 07:50] LABS: Calcium 8.9 mg/dl (8.6-10.3); Creatinine Clr Calc Pharmacy 75.5 ml/min; Est GFR (African American) 77.2 ml/min; Est GFR (Non-African American) 66.6 ml/min; Magnesium 2.2 mg/dl (1.7-2.4); Potassium 4.8 mmol/L (3.5-5.1)
[2023-11-08 07:56] LABS: Estimated Average Glucose 146 mg/dl; Hemoglobin A1C 6.7 % (4.5-5.6)
[2023-11-08] MEDS: DULoxetine HCL 20 MG CAP PO SCH (08:05)
[2023-11-08] MEDS: ENOXAPARIN INJ 40 MG/0.4 ML SYR SQ SCH (08:08)
[2023-11-08] MEDS ORDERED: GABAPENTIN 600MG ALCOHOL WITHDRAWAL LOAD PO STA (13:19)
--- NOTE | 2023-11-08 13:21 | Hospitalist Progress Note ---
Date of Service November 08, 2023 Assessment & Plan (1) Acute hyponatremia: Plan: Na level of 123 at time of ER presentation 135 today likely 2nd to beer potomania/tea & toast diet based on low urine osm, etc. Na level corrected with simple observation received only modest amount of IV Fluid in the ER at time of presentation Na level corrected ~0.5meq/hour since admission BMP in am (2) Laceration of head: Plan: complex lac 2nd to fall with head trauma she reports being up to date on her Td booster s/p suturing in ED needs to follow-up 5-7 days for suture removal (3) Severe alcohol use disorder: Plan: suspect she is going thru mild etoh withdrawal with tachycardia, anxiety, etc. start gabapentin protocol/taper cont AWSS monitoring with symptom triggered lorazepam prn cont daily oral folate and thiamine replacement we discussed initiation of Naltrexone or Acamprosate for alcohol use disorder prior to discharge patient handouts given she will let us know (4) Diabetes: Plan: hold metformin cont lantus cont novolog SSI diabetic diet A1c - 6.7% (5) Hypertension: Plan: had been out of losartan for about a week prior to admission this was resumed at 50mg/day if BPs remain high - which could be from etoh withdrawal - add metoprolol tartrate low-dose cont alpha lianet as well (6) Concussion: Plan: suspected due to fall with head injury "Brain rest" - low lights, limit reading/TV watching, limit narcotics, focus on good nutrition/hydration, etc if numbness on head worsens then repeat imaging will be needed Plan Thrombocytopenia likely related to direct toxic effect of alcohol on the bone marrow and/or consumptive from bleeding from head lac Repeat CBC am for stability morbid obesity BMI of 43 history of depression and PTSDcontinue duloxetine, BuSpar, prazosin, trazodone. note history of serotonin syndrome in past hypomagnesemia - replaced, resolved DVT prophylaxis enoxaparin 40mg BID (due to morbid obesity) will need PT eval prior to discharge to ensure safe walking, etc Admission and Anticipated Discharge Date Admission Date: November 07, 2023 Subjective main complaints are that of head pain and head ache with some photophobia but no phonophobia she reports a mild numbness feeling just superior to the laceration site on the forehead mild neck pain base of neck denies any numbness/tingling/weakness of either arm she denies ever going through etoh withdrawal she drinks about 10 twelve oz beers/day has had periods of sobriety in the past denies h/o cirrhosis - fatty liver only denies any dizziness or lightheadedness we discussed use of naltrexone or acamprosate for etoh abuse Review of Systems Review of Systems: cv - no chest pain pulm - no dyspnea GI - no abd pain Physical Exam Physical Exam: gen - morbidly obese, looks mildly uncomfortable, awake, alert skin - complex laceration center of forehead at the scalp line; numerous sutures in place eyes - PERRL neck - no JVD; mild paraspinal tenderness present b/l mouth - MMM heart - RRR, s1 s2, no murmur lungs - CTA b/l abd - soft NT ND BS+ ext - no edema, pulses 2+ b/l neuro - strength 5/5 x 4 exts Results & Data Results & Data Vital Signs (Past 12 Hours) Vital Signs Temp Pulse Resp BP Pulse Ox O2 Del Method 11/08/23 07:53 36.7 C 86 16 163/94 H 92 Room Air Laboratory Results Laboratory Results - last 48 hr 11/07/23 11/07/23 11/07/23 09:31 15:15 16:40 WBC RBC Hgb Hct MCV MCH MCHC RDW Std Deviation RDW Coeff of Emmanuelle Plt Count MPV Sodium 125 L 125 L Potassium 4.4 Chloride 93 L Carbon Dioxide 25 Anion Gap 7 BUN 5 L Creatinine 1.10 Est Cr Clr Drug Dosing 61.8 Est GFR ( Amer) 60.6 Est GFR (Non-Af Amer) 52.3 BUN/Creatinine Ratio 4.5 L Glucose 210 H POC Glucose 177 H Estimat Average Glucose Hemoglobin A1c Calcium 8.4 L Magnesium TSH Urine Osmolality Ur Random Sodium 11/07/23 11/07/23 11/07/23 18:00 20:04 20:47 WBC RBC Hgb Hct MCV MCH MCHC RDW Std Deviation RDW Coeff of Emmanuelle Plt Count MPV Sodium 127 L Potassium Chloride Carbon Dioxide Anion Gap BUN Creatinine Est Cr Clr Drug Dosing Est GFR ( Amer) Est GFR (Non-Af Amer) BUN/Creatinine Ratio Glucose POC Glucose 166 H Estimat Average Glucose Hemoglobin A1c Calcium Magnesium TSH Urine Osmolality 98 L Ur Random Sodium 20 06/09/2711/08/23 11/08/23 06:35 07:31 11:24 WBC 4.91 RBC 4.49 Hgb 14.0 Hct 39.8 MCV 88.6 MCH 31.2 MCHC 35.2 RDW Std Deviation 40.9 RDW Coeff of Emmanuelle 12.5 Plt Count 95 L MPV 10.1 Sodium 135 L Potassium 4.8 Chloride 99 Carbon Dioxide 32 Anion Gap 4 BUN 9 Creatinine 0.90 Est Cr Clr Drug Dosing 75.5 Est GFR ( Amer) 77.2 Est GFR (Non-Af Amer) 66.6 BUN/Creatinine Ratio 10.0 Glucose 141 H POC Glucose 146 H 159 H Estimat Average Glucose 146 Hemoglobin A1c 6.7 H Calcium 8.9 Magnesium 2.2 TSH Urine Osmolality Ur Random Sodium 11/08/23 11/08/23 16:37 20:07 WBC RBC Hgb Hct MCV MCH MCHC RDW Std Deviation RDW Coeff of Emmanuelle Plt Count MPV Sodium Potassium Chloride Carbon Dioxide Anion Gap BUN Creatinine Est Cr Clr Drug Dosing Est GFR ( Amer) Est GFR (Non-Af Amer) BUN/Creatinine Ratio Glucose POC Glucose 132 H 135 H Estimat Average Glucose Hemoglobin A1c Calcium Magnesium TSH Urine Osmolality Ur Random Sodium PG Care Time/CCT Total # of Minutes Spent Total Time Spent with Patient: Total time spent is greater than 50% in coordination of care (as documented) at patient's floor/unit and/or counseling patient: Coding Level of Care Code 40878 SUB INP/OBS CARE 3/50MIN Diagnoses Acute hyponatremia E87.1 Laceration of head S01.91XA Encounter type: initial encounter Foreign body presence: without foreign body Location of open wound of head: unspecified part of head Severe alcohol use disorder F10.20 Diabetes E11.9 Hypertension I10 Concussion S06.0XAA (2) Laceration of head Encounter type: initial encounter Foreign body presence: without foreign body Location of open wound of head: unspecified part of head Qualified Code(s): S01.91XA - Laceration without foreign body of unspecified part of head, initial encounter
[2023-11-08] MEDS: GABAPENTIN 600 MG TAB PO ONE (14:11)
[2023-11-08] MEDS: GABAPENTIN 100 MG CAP PO SCH (20:15)
[2023-11-09 08:16] LABS: Hematocrit (blood only) 37.6 % (37.0-47.0); Hemoglobin 12.8 g/dl (12.0-16.0); Mean Corpuscular Hemoglobin 30.8 pg (25.0-34.0); Mean Corpuscular Volume 90.4 fL (80.0-100.0); Platelet Count 91 K/uL (130-400); RDW Coefficient of Variation 12.6 % (11.5-14.5); RDW Standard Deviation 41.7 fL (36.4-46.3); Red Blood Count 4.16 M/uL (4.20-5.40); White Blood Count 4.67 K/ul (4.8-10.8)
[2023-11-09 08:19] LABS: BUN Creatinine Ratio 11.2 (10-20); Calcium 8.7 mg/dl (8.6-10.3); Creatinine Clr Calc Pharmacy 76.3 ml/min; Est GFR (African American) 78.3 ml/min; Est GFR (Non-African American) 67.5 ml/min; Potassium 4.4 mmol/L (3.5-5.1)
[2023-11-09 08:34] LABS: Thyroid Stimulating Hormone 1.554 uIu/ml (0.300-4.500)
[2023-11-09] MEDS: METOPROLOL TARTRATE 25 MG TAB PO SCH (10:04)
[2023-11-09] MEDS: GABAPENTIN 600 MG TAB PO SCH (14:04)
--- NOTE | 2023-11-09 14:17 | Hospitalist Progress Note ---
Date of Service November 09, 2023 Assessment & Plan (1) Acute hyponatremia: Plan: Na level of 123 at time of ER presentation 135 once again today likely 2nd to beer potomania/tea & toast diet based on low urine osm, etc. Na level corrected with simple observation received only modest amount of IV Fluid in the ER at time of presentation BMP am for stability (2) Laceration of head: Plan: complex lac 2nd to fall with head trauma she reports being up to date on her Td booster s/p suturing in ED needs to follow-up 5-7 days for suture removal repeat head CT today w/o acute pathology or ICH (3) Severe alcohol use disorder: Plan: likely ongoing mild etoh withdrawal with intermittent tachycardia, anxiety, etc. cont gabapentin taper cont AWSS monitoring with symptom triggered lorazepam prn cont daily oral folate and thiamine replacement we discussed initiation of Naltrexone or Acamprosate for alcohol use disorder prior to discharge patient handouts given she will let us know (4) Diabetes: Plan: hold metformin cont lantus cont novolog SSI diabetic diet A1c - 6.7% (5) Hypertension: Plan: had been out of losartan for about a week prior to admission this was resumed at 50mg/day BPs improved with metoprolol tartrate 25mg BID cont alpha lianet as well (6) Concussion: Plan: suspected due to fall with head injury "Brain rest" - low lights, limit reading/TV watching, limit narcotics, focus on good nutrition/hydration, etc if numbness on head worsens then repeat imaging will be needed (7) Facial pain: Plan: 2nd to head trauma will obtain facial CT - r/o facial/nasal/jaw fractures, etc pain meds prn (8) Alcohol dependence with intoxication: Plan: intoxication resolved alcohol abuse led to low sodium - resolved see above re: naltrexone, etc Plan Thrombocytopenia likely related to direct toxic effect of alcohol on the bone marrow and/or consumptive from bleeding from head lac Platelets still low but acceptable morbid obesity BMI of 43 history of depression and PTSDcontinue duloxetine, BuSpar, prazosin, trazodone. noted the history of serotonin syndrome in past hypomagnesemia - replaced, resolved DVT prophylaxis enoxaparin 40mg BID (due to morbid obesity) appreciate PT eval Admission and Anticipated Discharge Date Admission Date: November 07, 2023 Subjective patient today woke up with facial pain, nasal bridge pain, jaw pain, and shiners of both eyes she continues with headache and lower neck pain feels a little wobbly on her feet eating fair still shaky at times still with some photosensitivity Review of Systems Review of Systems: CV - no cp, no orthopnea pulm - no dyspnea or cough GI - no N/V neuro - denies paresthesias or weakness of either arm; has chronic R foot numbness - baseline Physical Exam Physical Exam: gen - morbidly obese, mildly uncomfortable eyes - shiners/ecchymoses both rogelio-orbital areas face - tender nasal bridge as well as b/l cheek bones and over the jaw as well; no TMJ pain skin - complex laceration center of forehead at the scalp line; numerous sutures in place; no erythema or drainage neck - no JVD; mild paraspinal tenderness present b/l mouth - MMM heart - RRR, s1 s2, no murmur lungs - CTA b/l abd - soft NT ND BS+ ext - no edema, pulses 2+ b/l Results & Data Results & Data Vital Signs (Past 12 Hours) Vital Signs Temp Pulse Resp BP Pulse Ox O2 Del Method 11/09/23 13:25 94 11/09/23 11:35 36.4 C L 76 18 132/83 93 Room Air 11/09/23 08:10 36.6 C 84 20 160/120 H 93 Room Air Laboratory Results Laboratory Results 11/08/23 11/08/23 11/08/23 11:24 16:37 20:07 WBC RBC Hgb Hct MCV MCH MCHC RDW Std Deviation RDW Coeff of Emmanuelle Plt Count MPV Sodium Potassium Chloride Carbon Dioxide Anion Gap BUN Creatinine Est Cr Clr Drug Dosing Est GFR ( Amer) Est GFR (Non-Af Amer) BUN/Creatinine Ratio Glucose POC Glucose 159 H 132 H 135 H Calcium TSH 11/09/23 11/09/23 11/09/23 07:10 07:52 11:17 WBC 4.67 L RBC 4.16 L Hgb 12.8 Hct 37.6 MCV 90.4 MCH 30.8 MCHC 34.0 RDW Std Deviation 41.7 RDW Coeff of Emmanuelle 12.6 Plt Count 91 L MPV 10.0 Sodium 135 L Potassium 4.4 Chloride 99 Carbon Dioxide 30 Anion Gap 6 BUN 10 Creatinine 0.89 Est Cr Clr Drug Dosing 76.3 Est GFR ( Amer) 78.3 Est GFR (Non-Af Amer) 67.5 BUN/Creatinine Ratio 11.2 Glucose 152 H POC Glucose 158 H 165 H Calcium 8.7 TSH 1.554 PG Care Time/CCT Total # of Minutes Spent Total Time Spent with Patient: Total time spent is greater than 50% in coordination of care (as documented) at patient's floor/unit and/or counseling patient: Coding Level of Care Code 50117 SUB INP/OBS CARE 2/35MIN Diagnoses Acute hyponatremia E87.1 Laceration of head S01.91XA Encounter type: initial encounter Foreign body presence: without foreign body Location of open wound of head: unspecified part of head Severe alcohol use disorder F10.20 Diabetes E11.9 Hypertension I10 Concussion S06.0XAA Facial pain R51.9 Alcohol dependence with intoxication F10.229 (2) Laceration of head Encounter type: initial encounter Foreign body presence: without foreign body Location of open wound of head: unspecified part of head Qualified Code(s): S01.91XA - Laceration without foreign body of unspecified part of head, initial encounter
--- NOTE | 2023-11-09 15:30 | CT Scan Report ---
HEAD CT NONCONTRAST CT DOSE: 830.42 mGy.cm HISTORY: head injury, persistent headache TECHNIQUE: Multiaxial CT images of the head were performed without the use of intravenous contrast. A utomated exposure control was utilized for this study. A dose lowering technique was utilized adheri ng to the principles of ALARA. Comparison: None. Findings: The paranasal sinuses and mastoid air cells are clear. The calvarium and skull base are int act. The ventricles and sulci are within normal limits. There is no mass, hematoma, midline shift, or acute infarct. Frontal scalp swelling/laceration again noted. Impression: 1. No acute intracranial abnormality. 2. Frontal scalp injury again noted. ACT 112: Negative or not required by law. Electronically signed by: Manfred Gloria M.D. 11/09/2023 3:27 PM
--- NOTE | 2023-11-09 16:02 | CT Scan Report ---
CT SCAN OF THE FACIAL BONES WITHOUT IV CONTRAST CLINICAL HISTORY: Head injury. COMPARISON STUDY: Facial bone CT dated 12/12/2019. TECHNIQUE: High-resolution CT scan of the facial bones is performed. Images are reviewed in the axia l, sagittal, and coronal planes. IV contrast was not administered for this examination. A dose lower ing technique was utilized adhering to the principles of ALARA. FINDINGS: The skeletal structures are osteopenic. There is no evidence of facial bone fracture. There is chronic deformity of the right lamina papyracea. The bony orbits are intact and the orbital eliazar nts are within normal limits noting bilateral ocular lens implants. The zygomatic arches, nasal bones , and pterygoid plates are preserved. The maxilla and mandible are intact. Degenerative change is not ed in the temporomandibular joints. There are no layering blood products within the paranasal sinuses . There is mucosal thickening and secretions in the left maxillary sinus. Trace mucosal thickening is noted in the ethmoid sinuses. The remaining paranasal sinuses are clear. There is a small right mast oid effusion. The left mastoid air cells are well pneumatized. The visualized calvarium and upper cer vical spine are maintained. Partially imaged brain parenchyma is within normal limits. There is ather osclerotic calcification of the carotid bulbs. There is frontal scalp contusion. IMPRESSION: There is no evidence of facial bone fracture. ACT 112: Negative or not required by law. Electronically signed by: Lamonte Becker M.D. 11/09/2023 4:01 PM
[2023-11-10 09:09] LABS: BUN Creatinine Ratio 12.9 (10-20); Calcium 9.1 mg/dl (8.6-10.3); Creatinine Clr Calc Pharmacy 73.1 ml/min; Est GFR (African American) 74.2 ml/min; Potassium 4.3 mmol/L (3.5-5.1)
[2023-11-10] MEDS: KETOROLAC TROMETHAMINE 15 MG/ML VIAL IV ONE (12:14)
[2023-11-10] MEDS: GABAPENTIN 400 MG CAP PO SCH (13:34)
--- NOTE | 2023-11-10 14:02 | CT Scan Report ---
CT lumbar spine wo con HISTORY: 68 years-old Female recent severe fall, h/o l-spine surgery, back pain acute low back pain status post fall COMPARISON: Fluoroscopic images 09/11/2012, lumbar spine radiographs 03/25/2022 TECHNIQUE: Multiple axial CT images of the lumbar spine were obtained without the use of IV contrast. A dose lowering technique was used consistent with the principals of ALARA. FINDINGS: Atherosclerosis of the aorta. There is no lymphadenopathy. Colonic diverticulosis. No paravertebral e maggy. Laminectomy with posterior interbody ion and screw fusion and discectomy redemonstrated at L4-L 5. The previously noted right L5 pedicle screw fracture is not definitively seen by CT. The hardware otherwise appears unremarkable. 5 mm anterolisthesis L3 on L4 is similar to prior secondary to severe facet arthrosis. L2 vertebral body hemangioma. Chronic T12 and L1 compression deformities with 3 mm T12 retropulsion, similar to prior. Mild lumbar levoscoliosis. No acute fracture or subluxation ident ified. Severe mid to lower lumbar facet arthrosis. The imaged sacrum appears intact. The central canal and neural foramina are better assessed by MRI. The L4-L5 central canal is not well visualized secondary to streak artifact from the hardware. At L3-L4 there is a circumferential renal disc bulge resulting in severe central canal stenosis with at least moderate bilateral foraminal kvng rowing. IMPRESSION: 1. No acute fracture or subluxation identified. 2. Chronic T12 and L1 compression deformities. 3. Laminectomy with discectomy, posterior interbody ion and screw fusion at L4-L5. 4. Annular disc bulge at L3-L4 contributes to cause severe central canal stenosis with at least moder ate bilateral foraminal narrowing. ACT 112: Negative or not required by law. The above report was generated using voice recognition software. It may contain grammatical, syntax o r spelling errors. Electronically signed by: Bj Douglas M.D. 11/10/2023 2:00 PM
[2023-11-11] MEDS ORDERED: GABAPENTIN 100 MG CAP PO SCH (13:30)
--- NOTE | 2023-11-17 07:29 | Discharge Summary ---
Date of Service date of admission - November 07, 2023 date of discharge - November 10, 2023 Admission HPI Per Admitting Provider 68 y/o with alcohol use disorder had been drinking heavily yesterday (10 beers and 2 mixed drinks) when she bent over to pick something up and fell forward striking her forehead. This resulted in significant scalp laceration with bleeding. Only complaint currently is headache related to this. It was sutured in ED. Additional ED workup with CT head and cspine negative for fracture. Chemistry panel notable for Na 123 - has had hyponatremia in past but not this severe. BAL was 268. Plt 108. Otherwise she states she is feeling fine. She knows she needs to stop drinking and had long period of sobriety in the past. She was treated for withdrawal in the hospital once in the past but that was concomitant with treatment for a serotonin syndrome from celexa + venlafaxine so unclear how severe the withdrawl was. Her father from complications of alcoholism. She lives with her boyfriend. Her daughter and granddaughter are supportive of her quitting drinking and are here at the bedside and provided additional history. Principal Diagnosis 1. hyponatremia - improved; discharge sodium level 133 2. mild alcohol withdrawal 3. severe head injury 4. concussion 5. forehead/scalp laceration requiring repair (19 sutures placed 11/07/23) 6. HTN 7. lumbar spinal stenosis 8. morbid obesity BMI 42.5 Discharge Exam gen - morbidly obese, NAD eyes - shiners/ecchymoses both rogelio-orbital areas face - tender nasal bridge as well as b/l cheek bones and over the jaw as well but no deformity; no TMJ pain with opening/closing jaw skin - complex laceration center of forehead at the scalp line; numerous sutures in place; no erythema or drainage neck - no JVD mouth - MMM heart - RRR, s1 s2, no murmur lungs - CTA b/l abd - soft NT ND BS+ ext - no edema, pulses 2+ b/l neuro - strength 5/5 x 4 exts Discharge Data Allergies Allergy/AdvReac Type Severity Reaction Status Date / Time Sulfa (Sulfonamide Allergy Unknown Verified 10/01/20 11:27 Antibiotics) Consultations PT Ordered Studies Head CT 11/07/23 05:[address] DOSE: 1250.21 mGy.cm HISTORY: head injury s/p fall TECHNIQUE: Multiaxial CT images of the head were performed without the use of intravenous contrast. Automated exposure control was utilized for this study. A dose lowering technique was utilized adhering to the principles of ALARA. Comparison: Head CT 12/17/2021. Findings: Mild mucosal thickening and a small retention cyst within the left maxillary sinus. The mastoid air cells are clear. Left frontal scalp swelling. The calvarium and skull base are intact. The ventricles and sulci are within normal limits. There is no mass, hematoma, midline shift, or acute infarct. Impression: No acute intracranial abnormality. Left frontal scalp swelling. ACT 112: Negative or not required by law. Electronically signed by: Manfred Gloria M.D. 11/07/2023 7:[address] 11/07/23 06:[address] DOSE: HISTORY: fall TECHNIQUE: Multiaxial CT images of the cervical spine were performed and reformatted in the sagittal and coronal plane without the use of contrast. A dose lowering technique was utilized adhering to the principles of ALARA. COMPARISON: Cervical spine CT 12/03/2012. FINDINGS: Mild motion artifact. No fractures. Questionable anterior wedging at C4 is likely due to the motion artifact. Minimal anterolisthesis at C5-C6, unchanged. [id number] facet degenerative changes are noted. Prevertebral soft tissues and the C1-C2 interval are intact. No pneumothorax. IMPRESSION: Mild motion artifact. No definite acute fracture or subluxation. ACT 112: Negative or not required by law. Electronically signed by: Manfred Gloria M.D. 11/07/2023 7:[address] 11/09/23 14:14 CT SCAN OF THE FACIAL BONES WITHOUT IV CONTRAST CLINICAL HISTORY: Head injury. COMPARISON STUDY: Facial bone CT dated 12/12/2019. TECHNIQUE: High-resolution CT scan of the facial bones is performed. Images are reviewed in the axial, sagittal, and coronal planes. IV contrast was not administered for this examination. A dose lowering technique was utilized adhering to the principles of ALARA. FINDINGS: The skeletal structures are osteopenic. There is no evidence of facial bone fracture. There is chronic deformity of the right lamina papyracea. The bony orbits are intact and the orbital contents are within normal limits noting bilateral ocular lens implants. The zygomatic arches, nasal bones, and pterygoid plates are preserved. The maxilla and mandible are intact. Degenerative change is noted in the temporomandibular joints. There are no layering blood products within the paranasal sinuses. There is mucosal thickening and secretions in the left maxillary sinus. Trace mucosal thickening is noted in the ethmoid sinuses. The remaining paranasal sinuses are clear. There is a small right mastoid effusion. The left mastoid air cells are well pneumatized. The visualized calvarium and upper cervical spine are maintained. Partially imaged brain parenchyma is within normal limits. There is atherosclerotic calcification of the carotid bulbs. There is frontal scalp contusion. IMPRESSION: There is no evidence of facial bone fracture. ACT 112: Negative or not required by law. Electronically signed by: Lamonte Becker M.D. 11/09/2023 4:[address] 11/09/23 14:[address] DOSE: 830.42 mGy.cm HISTORY: head injury, persistent headache TECHNIQUE: Multiaxial CT images of the head were performed without the use of intravenous contrast. Automated exposure control was utilized for this study. A dose lowering technique was utilized adhering to the principles of ALARA. Comparison: None. Findings: The paranasal sinuses and mastoid air cells are clear. The calvarium and skull base are intact. The ventricles and sulci are within normal limits. There is no mass, hematoma, midline shift, or acute infarct. Frontal scalp swelling/laceration again noted. Impression: 1. No acute intracranial abnormality. 2. Frontal scalp injury again noted. ACT 112: Negative or not required by law. Electronically signed by: Manfred Gloria M.D. 11/09/2023 3:[address] 11/10/23 11:40 CT lumbar spine wo con HISTORY: 68 years-old Female recent severe fall, h/o l-spine surgery, back pain acute low back pain status post fall COMPARISON: Fluoroscopic images 09/11/2012, lumbar spine radiographs 03/25/2022 TECHNIQUE: Multiple axial CT images of the lumbar spine were obtained without the use of IV contrast. A dose lowering technique was used consistent with the principals of ALARA. FINDINGS: Atherosclerosis of the aorta. There is no lymphadenopathy. Colonic diverticulosis. No paravertebral edema. Laminectomy with posterior interbody ion and screw fusion and discectomy redemonstrated at L4-L5. The previously noted right L5 pedicle screw fracture is not definitively seen by CT. The hardware otherwise appears unremarkable. 5 mm anterolisthesis L3 on L4 is similar to prior secondary to severe facet arthrosis. L2 vertebral body hemangioma. Chronic T12 and L1 compression deformities with 3 mm T12 retropulsion, similar to prior. Mild lumbar levoscoliosis. No acute fracture or subluxation identified. Severe mid to lower lumbar facet arthrosis. The imaged sacrum appears intact. The central canal and neural foramina are better assessed by MRI. The L4-L5 central canal is not well visualized secondary to streak artifact from the hardware. At L3-L4 there is a circumferential renal disc bulge resulting in severe central canal stenosis with at least moderate bilateral foraminal narrowing. IMPRESSION: 1. No acute fracture or subluxation identified. 2. Chronic T12 and L1 compression deformities. 3. Laminectomy with discectomy, posterior interbody ion and screw fusion at L4- L5. 4. Annular disc bulge at L3-L4 contributes to cause severe central canal stenosis with at least moderate bilateral foraminal narrowing. ACT 112: Negative or not required by law. The above report was generated using voice recognition software. It may contain grammatical, syntax or spelling errors. Electronically signed by: Bj Douglas M.D. 11/10/2023 2:00 PM Hospital Course (1) Acute hyponatremia: Na level of 123 at time of ER presentation normalized with little intervention range 133-135 prior to discharge likely 2nd to beer potomania/tea & toast diet based on low urine osm (98), etc. (2) Laceration of head: complex lac 2nd to fall with head trauma she reports being up to date on her Td booster s/p suturing in ED sutures should be removed within 7-10 days of placement (date of placement 11/07/23) head CT x 2 negative for acute findings (3) Severe alcohol use disorder: had mild etoh withdrawal with intermittent tachycardia, anxiety, etc. during the stay. received gabapentin taper. folate and thiamine replacement provided, and prescriptions for thiamine/folate given at discharge. we discussed initiation of Naltrexone or Acamprosate for alcohol use disorder prior to discharge; handouts given; patient to think about/contemplating such. (4) Diabetes: continue metformin HbA1c - 6.7% (5) Hypertension: had been out of losartan for about a week prior to admission this was resumed at 50mg/day while here added metoprolol during the stay as she had elevated HRs & BPs related to etoh withdrawal but this was not continued on discharge cont prazosin 2mg HS (6) Concussion: suspected/probable due to fall with head injury will need plenty of "Brain rest" post-discharge - low lights, limit reading/TV watching/device use, focus on good nutrition/hydration, etc CT head x 2 negative for acute findings while here (7) Facial pain: 2nd to head trauma facial CT - no facial/nasal/jaw fractures (8) Alcohol dependence with intoxication: presented with etoh level of 268 & intoxication (9) Morbid obesity with BMI of 40.0-44.9, adult: BMI 42.5 (10) PTSD (post-traumatic stress disorder): continue duloxetine, BuSpar, prazosin, trazodone. has a past history of serotonin syndrome. (11) Thrombocytopenia: likely related to direct toxic effect of alcohol on the bone marrow and/or consumptive from bleeding from head laceration. 91-108 range while here. recommend repeat CBC within 1 week of discharge. (12) Hypomagnesemia: presenting level 1.6. replace, normalized. Total Time Total Time Spent Total Time Spent (In Minutes): 45 Discharge Plan Discharge Items Patient Disposition: Home - Self-Care Reason For Visit: HYPONATREMIA Discharge Diagnosis: 1. hyponatremia (low sodium) - improved; discharge sodium level 133 2. mild alcohol withdrawal 3. severe head injury 4. likely concussion 5. forehead/scalp laceration requiring stitching (19 sutures used); suture removal needed 7-10 days from time of suture placement (11/07/23) 6. high blood pressure 7. chronic low back pain with lumbar spinal stenosis Activity: As commented below Activity Comment: light activities only; no strenuous activities due to probable concussion Sexual Activity: Wait until after follow-up appointment Exercise/Sports: Wait until after follow-up appointment Driving/Machine Use: NO DRIVING until cleared by your family doctor Non-emergency contact: Primary Care Provider Call non-emergency contact if: you have any medication questions, your symptoms worsen, your pain is not controlled, your pain is worsening, your pain is unusual for you, your pain is concerning for you, your wound has increased redness, your wound has increased drainage and your wound pain has increased Follow-up/Referrals: Eduardo Ruiz MD [Primary Care Provider] - () Zayda Schaeffer MD [Resident] - 11/21/23 10:00 am (9:45 arrival) Diet: Carb Consistent or DM2 Addtl Attending Provider Instructions: Ms Ayala, You were hospitalized after suffering a serious head injury resulting in a forehead/scalp laceration. The laceration was significant requiring numerous stitches for such. Fortunately CT head (x 2), CT face, CT neck, and CT lumbar spine did NOT show fractures, internal bleeding, or other injury. At the time of your presentation to [facility] your sodium level was low. This was likely due to excessive alcohol use and poor intake of solid foods. Your sodium level corrected without difficulty. You likely had mild withdrawal from alcohol during your hospitalization. This was treated with a medicine called gabapentin. Your withdrawal symptoms are much improved at this time. I have high suspicion that you suffered a concussion as a result of your head injury. Concussion symptoms (headaches, dizziness, feeling "off", fatigue, etc - see handout for full list) can last days or even weeks after a head injury. The most important thing to do after having a concussion is to "rest your bra in." A concussion is a brain injury due to the impact of the head trauma. For the next few days to 1-2 weeks please - * avoid excessive exposure to loud noises * avoid excessive exposure to bright lights and sunlight * avoid prolonged TV watching or time on screens in general (smart phone, tablet, computer, etc) * rest! naps and simply resting heal the brain * avoid alcohol * avoid heavy lifting, heavy exertional activities, etc. * focus on good nutrition & hydration - stay well-hydrated, and eat foods rich in anti-oxidants -- blueberries, beans, cherries, apples, dark leafy greens, pecans, strawberries, prunes, russet potatoes, artichokes, etc. Anti-oxidants reduce inflammation from any form of injury and are simply good for you and your health. For head/facial pain you may use [id number] Tylenol 1000mg every 6 hours as needed, maximum 3000mg in 24 hours. If you have pain that is still there after the Tylenol you can use [id number] Motrin (ibuprofen) -- 600mg every 8 hours as needed. Tylenol is your best choice right now. You can use heat and/or ice to affected areas as well. Sutures - you can shower at this time but avoid swimming & immersion in a tub. Pat the forehead dry when getting out of the shower. Your sutures will need to be removed 7-10 days from the day of placement which was 11/07/23. This can be done at the [facility] ER OR your family doctor's office. Blood pressure - please check your blood pressure at home. Check 1x each day. If your systolic blood pressure (top number) is consistently greater than 140 I would advise INCREASING your losartan to 50mg twice daily (morning & night). If your blood pressure is consistently less than 140 no need to adjust any medicine. Please talk to Dr Schaeffer about initiating either Naltrexone or Acamprosate to help you maintain your sobriety from alcohol. See handouts given previously. Your lumbar CT showed severe spinal stenosis at L3-L4 (this is above the level of your prior surgery). If your back continues to give you problems see Dr Schaeffer or your back specialist. Please use your walker at home especially over the next week as you recover from your injury and your hospitalization. Follow-up with Dr Schaeffer in 5-7 days Return to [facility] if - * you have any concerns about your forehead laceration * you have worsening headache or facial pain * you have numbness or tingling of any arm or leg * you have weakness of any arm or leg * you have severe fatigue/lethargy * any other concerns It was our pleasure to care for you! Please feel better, -Dr Carrasco Pending Studies at Discharge: No Stand-Alone Forms: My [facility], Smoking Cessation Medications and DC Order Prescriptions: New thiamine HCl (vitamin B1) 100 mg Tablet 200 mg PO BID 30 Days Qty: 120 0RF folic acid 1 mg Tablet 1 mg PO QAM Qty: 30 0RF Continued omeprazole 20 mg capsule,delayed release(DR/EC) 20 mg PO DAILY prazosin 2 mg capsule 2 mg PO HS duloxetine [Cymbalta] 20 mg Capsule,Delayed Release(Dr/Ec) 20 mg PO QAM Qty: 30 0RF Rx Instructions: with 30 mg = 50 mg TDD metformin 500 mg tablet 500 mg PO QPM Qty: 30 0RF Rx Instructions: Take at night with dinner (DME) OneTouch Verio test strips Strip See Rx Instructions .Route Qty: 50 0RF Rx Instructions: Check sugar once a day (DME) lancets [OneTouch Delica Lancets] 33 gauge misc See Rx Instructions .Route Qty: 100 0RF Rx Instructions: Check once a day losartan 50 mg tablet 50 mg PO DAILY diphenhydramine HCl [Benadryl] 25 mg Capsule 25 mg PO HS PRN (Reason: Allergy Symptoms) buspirone 10 mg tablet 10 mg PO TID rosuvastatin 10 mg tablet 10 mg PO HS duloxetine 30 mg capsule,delayed release(DR/EC) 30 mg PO DAILY Rx Instructions: with 20 mg = 50 mg TDD trazodone 100 mg tablet 200 mg PO HS Discharge Orders: Discharge Order (Routine); Ordered 11/10/23 Ordered By: Curtis Burgess/Other Patient Handouts: Managing Type 2 Diabetes, Alcoholism Resources, Diabetes: Meal Planning, ED Concussion Admission Data Admit Date/Time: 11/07/23 10:18 Attending Provider: Curtis Carrasco Admit Provider: Maribel Tobias Primary Care Provider: Eduardo Ruiz Other Providers: Fred Dyson; Yumiko Curtis; [facility],[place] Other Interventions: Discharge Summary Assessment (RN) Last Done: 11/10/23 15:58 Coding Level of Care Code 25292 INP/OBS DISCH >30 MIN Diagnoses Acute hyponatremia E87.1 Laceration of head S01.91XA Encounter type: initial encounter Foreign body presence: without foreign body Location of open wound of head: unspecified part of head Severe alcohol use disorder F10.20 Diabetes E11.9 Hypertension I10 Concussion S06.0XAA Facial pain R51.9 Alcohol dependence with intoxication F10.229 Morbid obesity with BMI of 40.0-44.9, adult E66.01; Z68.41 PTSD (post-traumatic stress disorder) F43.10 Thrombocytopenia D69.6 Hypomagnesemia E83.42
== END 2023-11-10 16:13 | disposition home or self-care (01) | DRG 897 ==
LOC: ED 05:23 → SUATTDRO 10:18 → EDINP 10:18 → 3W 11:11